=== PATIENT | female | born 1965 | race Caucasian/White ===

== ENCOUNTER 2020-12-11 10:24 | Outpatient (REF) | payer OTHER, SELFPAY ==
[2020-12-11 10:54] LABS: MANUAL DIFF FLAG NO
[2020-12-11 10:56] LABS: Basophils Absolute Auto 0.1 X10*3/uL (0.0-0.2); Basophils Percent Auto 0.5 % (0-2); Eosinophils Absolute Auto 0.1 X10*3/uL (0.0-0.4); Eosinophils Percent Auto 1.5 % (0-4); Hematocrit 45.6 % (37-47); Hemoglobin 15.1 g/dl (12.0-16.0); Imm Gran Abs Auto 0.05 X10*3/uL (0.00-0.03); Imm Gran Pct Auto 0.5 % (0.0-0.4); Lymphocytes Absolute Auto 2.2 X10*3/uL (1.2-4.9); Lymphocytes Percent Auto 23.2 % (20-40); Mean Corpuscular HGB Conc 33.1 g/dl (31.0-35.0); Mean Corpuscular Hemoglobin 30.4 pg (27.0-33.0); Mean Corpuscular Volume 91.9 fL (80-98); Mean Platelet Volume 10.5 fL (9.4-12.3); Monocytes Absolute Auto 0.7 X10*3/uL (0.1-1.2); Monocytes Percent Auto 7.1 % (2-11); Neutrophils Absolute Auto 6.3 X10*3/uL (2.0-8.3); Neutrophils Percent Auto 67.2 % (45-73); Platelet Count 303 X10*3/uL (160-400); Red Blood Count 4.96 X10*6/uL (4.20-5.50); Red Cell Distribution Width 12.6 % (11.0-16.0); White Blood Count 9.4 X10*3/uL (4.8-10.8)
[2020-12-11 11:23] LABS: Estimated Average Glucose 111 mg/dL; Hemoglobin A1c % 5.5 %
[2020-12-11 12:13] LABS: Alanine Aminotransferase 25 U/L (0-31); Albumin Level 4.5 g/dL (3.5-5.0); Alkaline Phosphatase 92 U/L (39-117); Anion Gap 16 (12-20); Bilirubin Total 0.3 mg/dL (0.0-1.0); Blood Urea Nitrogen 13 mg/dL (9-16); Calcium 9.3 mg/dL (8.4-10.2); Carbon Dioxide 26 mmol/L (22-29); Chloride 106 mmol/L (96-108); Cholesterol 263 mg/dL; Estimated Glomerular Filt Rate > 60; Glucose Random 110 mg/dL (60-115); HDL Cholesterol 55 mg/dL; LDL Cholesterol Calculated 191 mg/dl; Potassium 4.9 mmol/l (3.3-5.1); Sodium 143 mmol/L (135-145); Total Protein 6.7 g/dL (6.5-8.0); Triglycerides 87 mg/dL
[2020-12-11 12:14] LABS: Folate 5.5 ng/mL (> or = 4.0); Vitamin B12 447 pg/mL (200-900)
[2020-12-11 12:16] LABS: Free T4 (Free Thyroxine) 0.82 ng/dL (0.71-1.85); Thyroid Stimulating Hormone 2.24 uIU/mL (0.32-4.0); Vitamin D 25-OH Total 47.3 ng/mL (>30)
[2020-12-11 12:25] LABS: Aspartate Amino Transferase 17 U/L (5-31)
== END 2020-12-11 10:25 | disposition home or self-care (01) ==
LOC: HO.LAB 10:24
PROVIDERS: PCP Internal Medicine; Visit Provider Internal Medicine
DX: E78.00 Pure hypercholesterolemia, unspecified (principal); R73.02 Impaired glucose tolerance (oral); K21.9 Gastro-esophageal reflux disease without esophagitis; F41.9 Anxiety disorder, unspecified; F32.9 Major depressive disorder, single episode, unspecified
CPT/HCPCS: 36415; 80053; 80061; 82306; 82607; 82746; 83036; 84439; 84443; 85025

== ENCOUNTER 2021-01-06 14:45 | Inpatient (IN) | payer OTHER, SELFPAY ==
--- NOTE | ~2021-01-06 | CT_ITS ---
EXAMINATION: CT ABDOMEN AND PELVIS WITH CONTRAST CLINICAL INFORMATION: Left lower quadrant pain and tenderness COMPARISON: None TECHNIQUE: Multidetector volumetric images were obtained from the superior aspect of the liver through the pubic symphysis following administration 85 mL of Omnipaque 350 intravenous contrast. Sagittal and coronal reformatted images were obtained on the technologist's workstation. Oral contrast: No This CT examination was performed using dose optimization techniques as appropriate, variously including the following: *Automated exposure control *Adjustment of mA and/or kV according to patient size (this includes techniques or standardized protocols for targeted exams where dose is matched to indication/reason for exam; i.e. extremities or head) *Use of iterative reconstruction technique DLP: 663 mGy-cm FINDINGS: LUNG BASES: The visualized lung bases are unremarkable. LIVER, GALLBLADDER, AND BILIARY TREE: The liver is normal in size, shape, and attenuation. No focal hepatic lesion or biliary ductal dilatation is present. The gallbladder is unremarkable with no evidence of radiopaque gallstones, gallbladder wall thickening, or obvious pericholecystic inflammatory changes. PANCREAS: Unremarkable. SPLEEN: Unremarkable. ADRENAL GLANDS: Unremarkable. KIDNEYS AND URETERS: The kidneys are normal in size, shape, and attenuation. No hydronephrosis, hydroureter, or calculi seen. No perinephric stranding. BLADDER: Unremarkable. A tiny reji of air is noted within the bladder. GASTROINTESTINAL TRACT: Diverticular changes are present predominantly in the sigmoid. At the junction of the descending colon and sigmoid there is colonic thickening and pericolonic inflammatory change consistent with acute diverticulitis. No extraluminal air or pericolonic drainable fluid collections are seen. One tiny fluid collection is seen which could even be a diverticulum measuring 8 mm in size (series 3 image 62). There is some minimally prominent loops of small bowel in the lower pelvis with some tethering seen. This is an area of a surgical clip (series 7 image 46) and could be related to some scarring. No gross evidence of bowel obstruction is seen. ABDOMINAL WALL: No significant hernia is appreciated. LYMPH NODES: No retroperitoneal lymphadenopathy seen. Some small para-aortic lymph nodes are present. VASCULAR: Unremarkable. PELVIC VISCERA: An anteverted uterus is present. A small amount of free fluid is present in the cul-de-sac. OSSEOUS STRUCTURES: Unremarkable. CT/CT abdomen pelvis w con IMPRESSION: 1. Acute uncomplicated diverticulitis at the junction of the descending and sigmoid colon-see description above. 2. Mildly prominent loops of small bowel without gross obstruction and some mild tethering may be secondary to prior surgery. 3. Tiny reji of air in the bladder may be due to catheterization as there is no evidence of a enteric fistula to the bladder
[2021-01-06 18:09] VITALS: BP 135/100; PULSE 105; RESP 18; TEMP 36.7; O2SAT 97; BMI 31.2
[2021-01-06 18:49] VITALS: BP 133/85; PULSE 87; RESP 20; TEMP 36.9; O2SAT 97
--- NOTE | 2021-01-06 18:55 | ED_ITS ---
HPI - Abdominal Pain General Chief Complaint: Abdominal Pain Stated Complaint: ABD PAIN Time Seen by Provider: 01/06/21 18:40 Source: patient Mode of arrival: ambulatory History of Present Illness HPI narrative: 55-year-old female with a past medical history of GERD, hyperlipidemia, impaired glucose tolerance, insomnia, obesity, presenting to the ED complaining of left lower quadrant abdominal pain radiating to mid lower abdomen since last night. Admits to associated nausea and decreased p.o. intake. Denies fever, chills, vomiting, diarrhea, constipation, dysuria/hematuria, vaginal bleeding/discharge, flank pain MD elicited complaint: abdominal pain Related Data Home Medications Medication Instructions Recorded Confirmed biotin 1 mg capsule 1 mg PO DAILY 12/11/20 12/11/20 carisoprodol 350 mg tablet 350 mg PO BEDTIME PRN tab 12/11/20 12/11/20 cholecalciferol (vitamin D3) 25 25 mcg PO DAILY 12/11/20 12/11/20 mcg (1,000 unit) capsule gabapentin 300 mg capsule 300 mg PO TID PRN cap 12/11/20 12/11/20 magnesium 250 mg tablet 250 mg PO DAILY 12/11/20 12/11/20 omega-3 fatty acids 1,000 mg 1,000 mg PO DAILY 12/11/20 12/11/20 capsule simvastatin 10 mg tablet 10 mg PO QPM 12/11/20 12/11/20 Previous Rx's Medication Instructions Recorded paroxetine HCl 20 mg tablet 20 mg PO QAM #30 tab 10/18/20 clonazepam 0.5 mg tablet 0.5 mg PO BID PRN 30 Days #30 tab 12/11/20 varenicline 0.5 mg (11)-1 mg (42) See Rx Instructions PO PER PKG DIR 12/11/20 tablets in a dose pack #53 ea varenicline 1 mg tablet 1 mg PO BID #56 tab 12/11/20 Allergies Allergy/AdvReac Type Severity Reaction Status Date / Time amoxicillin [Amoxicillin] Allergy Mild NAUSEA Verified 11/28/20 08:39 azithromycin [From Zithromax] Allergy Mild ITCHING Verified 11/28/20 08:39 erythromycin base Allergy Mild NAUSEA Verified 11/28/20 08:39 [Erythromycin Base] Sulfa (Sulfonamide Allergy Mild NAUSEA Verified 11/28/20 08:39 Antibiotics) Erythromycin Allergy Unknown NAUSEA Verified 11/28/20 08:39 metoclopramide Allergy Unknown swelling Verified 02/23/19 00:00 hands/feet trazodone Allergy Unknown vivid Verified 11/28/20 08:39 dreams ENVIRONMENTAL Allergy Unknown NASAL Uncoded 08/02/20 15:49 CONGESTION, WATERY EYES Review of Systems Review of Systems Constitutional: No Fever, No Chills Cardiovascular: No Chest Pain, No SOB Respiratory: No Cough Gastrointestinal: +Nausea, No Vomiting, No Diarrhea, No Constipation, +Abdominal pain Genitourinary: No irregular bleeding, No Dysuria, No Urinary Frequency, No Hematuria, No Flank Pain, No Urinary Flow Changes, No Hesitancy Musculoskeletal: No joint pain, No Myalgias, No Joint Swelling Skin: No Skin Lesions, No rash Yes all other systems are reviewed and are negative Physical Exam Vital Signs: Vital Signs: Last Vital Signs Temp 98.1 F 01/06/21 20:11 Pulse 81 01/06/21 20:11 Resp 18 01/06/21 20:11 BP 116/81 01/06/21 20:11 Pulse Ox 97 01/06/21 20:11 Body Mass Index 31.2 Const: General: cooperative, healthy appearing and no acute distress Orientation/consciousness: patient oriented x3 Limitations: no limitations HENMT: Head: Yes normal to inspection Ears: hearing grossly normal bilaterally General nose exam: Normal external nose present Face and sinus: Yes normal facial exam Eyes: General: appearance normal, both eyes and all related structures EOM: EOMs intact bilaterally Neck: Neck: Yes normal visual inspection Resp: Effort & Inspection: normal respiratory effort Cardio: Rate: regular rate GI: Inspection: Yes normal to inspection Palpation (GI): Soft to palpation, Tenderness to palpation present (GI) (lower abdomen) in the LLQ, no guarding and not rigid : General: Yes no CVA tenderness Back/Spine/Pelvis: Back: no CVA tenderness Skin: Rashes: no rashes Wounds: no wounds Neuro: General: patient oriented x3 Gait exam (Neuro): Normal gait present Extrem: General: Yes normal to inspection Course Course Course Narrative: -leukocytosis of 13, labs otherwise unremarkable -2100--ED care transferred to C[facility] hebert pending CTAP and re-evaluation MDM - Abdominal Pain MDM Narrative Medical decision making narrative: 55-year-old female with a past medical history of GERD, hyperlipidemia, impaired glucose tolerance, insomnia, obesity, presenting to the ED complaining of left lower quadrant abdominal pain radiating to mid lower abdomen since last night. On exam VSS, NAD/well-appearing, abdomen soft with left lower quadrant/lower abdominal tenderness to palpation, no CVAT. No rebound or guarding. Concern for diverticulitis/UTI vs colitis. Lower concern for renal stone/appendicitis/pyelonephritis/ovarian pathology Plan: Labs, UA, CT AP, IVF, symptomatic treatments, reassess Medical Records Attestation: I reviewed the patient's medical records. Lab Data Attestation: I reviewed the patient's lab results. Result diagrams: 01/06/21 19:02 01/06/21 19:02 Labs: Lab Results 01/06/21 01/06/21 01/06/21 Range/Units 19:02 19:02 19:02 WBC 13.0 H (4.8-10.8) X10*3/uL RBC 4.43 (4.20-5.50) X10*6/uL Hgb 13.7 (12.0-16.0) g/dl Hct 40.4 (37-47) % MCV 91.2 (80-98) fL MCH 30.9 (27.0-33.0) pg MCHC 33.9 (31.0-35.0) g/dl RDW 12.5 (11.0-16.0) % Plt Count 272 (160-400) X10*3/uL MPV 10.9 (9.4-12.3) fL Immature Gran % (Auto) 0.5 H (0.0-0.4) % Neut % (Auto) 69.0 (45-73) % Lymph % (Auto) 20.3 (20-40) % [place] % (Auto) 8.5 (2-11) % Eos % (Auto) 1.4 (0-4) % Baso % (Auto) 0.3 (0-2) % Lymph # (Auto) 2.6 (1.2-4.9) X10*3/uL [place] # (Auto) 1.1 (0.1-1.2) X10*3/uL Eos # (Auto) 0.2 (0.0-0.4) X10*3/uL Baso # (Auto) 0.0 (0.0-0.2) X10*3/uL Abs Immat Gran (auto) 0.06 H (0.00-0.03) X10*3/uL Absolute Neuts (auto) 9.0 H (2.0-8.3) X10*3/uL Absolute Nucleated RBC 0.000 (0.0-0.012) X10*3/uL Nucleated RBC % (auto) 0.0 (0.0-0.2) /100WBC Hold Blue Top SEE NOTE Sodium 137 (135-145) mmol/L Potassium 4.5 (3.3-5.1) mmol/L Chloride 100 (96-108) mmol/L Carbon Dioxide 24 (22-29) mmol/L Anion Gap 18 (12-20) BUN 10 (9-16) mg/dL Creatinine 0.75 (0.5-1.4) mg/dL Estim Creat Clear Calc 76.2 Estimated GFR > 60 Random Glucose 95 (60-115) mg/dL Calcium 8.9 (8.4-10.2) mg/dL Magnesium 2.3 (1.6-2.6) mg/dL Total Bilirubin 0.7 (0.0-1.0) mg/dL Direct Bilirubin 0.2 (0.0-0.5) mg/dL AST 17 (5-31) U/L ALT 17 (0-31) U/L Alkaline Phosphatase 105 (39-117) U/L Total Protein 6.6 (6.5-8.0) g/dL Albumin 4.2 (3.5-5.0) g/dL Lipase 16 (8-78) U/L Discharge Plan Discharge Prescriptions: No Action paroxetine HCl 20 mg tablet 20 mg PO QAM Qty: 30 RF: 2 carisoprodol 350 mg tablet 350 mg PO BEDTIME PRNRF: 0 simvastatin 10 mg tablet 10 mg PO QPM RF: 0 gabapentin 300 mg capsule 300 mg PO TID PRNRF: 0 magnesium 250 mg tablet 250 mg PO DAILY RF: 0 biotin 1 mg capsule 1 mg PO DAILY RF: 0 omega-3 fatty acids [Fish Oil Concentrate] 1,000 mg capsule 1,000 mg PO DAILY RF: 0 cholecalciferol (vitamin D3) 25 mcg (1,000 unit) capsule 25 mcg PO DAILY RF: 0 Chantix Starting Month Box 0.5 mg (11)- 1 mg (42) tablets,dose pack See Rx Instructions PO PER PKG DIR Qty: 53 RF: 0 Chantix Continuing Month Box 1 mg tablet 1 mg PO BID Qty: 56 RF: 1 clonazepam 0.5 mg tablet 0.5 mg PO BID PRN (Reason: anxiety) 30 Days Qty: 30 RF: 0 PMFSH Past Medical History Attestation statement: The following information was validated with the patient. Medical History (Updated 12/11/20 @ 09:47 by Roney Merino MD) Bilateral carpal tunnel syndrome GERD (gastroesophageal reflux disease) Hypercholesterolemia Impaired glucose tolerance Insomnia Obesity (BMI 30-39.9) Surgical History (Updated 12/11/20 @ 09:45 by Roney Merino MD) H/O left knee surgery History of arthroscopy of left knee History of carpal tunnel release History of D&C History of fusion of cervical spine History of right knee surgery History of rotator cuff surgery History of shoulder surgery Family History Family History (Updated 11/28/20 @ 08:42 by Michelle Foster [facility]) Father Myocardial infarction Skin cancer Mother Myocardial infarction Maternal Grandmother Bone cancer Paternal Aunt Skin cancer Brother Myocardial infarction Sister Myocardial infarction Social History Social History (Updated 12/11/20 @ 09:46 by Roney Merino MD) Alcohol intake: current Alcohol intake frequency: 3 or more drinks per day Alcohol type: beer Smoking Status: Current every day smoker Packs Per Day: 0.5 Smoked in Last 30 Days: Yes Advance Directives: No Advance Directives Information Provided: Yes
[2021-01-06] MEDS: 0.9 % Sodium Chloride 1,000 ML 999 ML IVCONT (19:06)
[2021-01-06] MEDS: Ketorolac Tromethamine 15 MG/ML VIAL IVPUSH (19:07)
[2021-01-06 19:08] LABS: MANUAL DIFF FLAG NO
[2021-01-06 19:09] LABS: Basophils Percent Auto 0.3 % (0-2); Eosinophils Absolute Auto 0.2 X10*3/uL (0.0-0.4); Eosinophils Percent Auto 1.4 % (0-4); Hematocrit 40.4 % (37-47); Hemoglobin 13.7 g/dl (12.0-16.0); Imm Gran Abs Auto 0.06 X10*3/uL (0.00-0.03); Imm Gran Pct Auto 0.5 % (0.0-0.4); Lymphocytes Absolute Auto 2.6 X10*3/uL (1.2-4.9); Lymphocytes Percent Auto 20.3 % (20-40); Mean Corpuscular HGB Conc 33.9 g/dl (31.0-35.0); Mean Corpuscular Hemoglobin 30.9 pg (27.0-33.0); Mean Corpuscular Volume 91.2 fL (80-98); Mean Platelet Volume 10.9 fL (9.4-12.3); Monocytes Absolute Auto 1.1 X10*3/uL (0.1-1.2); Monocytes Percent Auto 8.5 % (2-11); Platelet Count 272 X10*3/uL (160-400); Red Blood Count 4.43 X10*6/uL (4.20-5.50); Red Cell Distribution Width 12.5 % (11.0-16.0)
[2021-01-06 19:41] LABS: Alanine Aminotransferase 17 U/L (0-31); Albumin Level 4.2 g/dL (3.5-5.0); Alkaline Phosphatase 105 U/L (39-117); Anion Gap 18 (12-20); Aspartate Amino Transferase 17 U/L (5-31); Bilirubin Direct 0.2 mg/dL (0.0-0.5); Bilirubin Total 0.7 mg/dL (0.0-1.0); Blood Urea Nitrogen 10 mg/dL (9-16); Calcium 8.9 mg/dL (8.4-10.2); Carbon Dioxide 24 mmol/L (22-29); Chloride 100 mmol/L (96-108); Creatinine Clr Calc Pharmacy 76.2; Estimated Glomerular Filt Rate > 60; Glucose Random 95 mg/dL (60-115); Lipase 16 U/L (8-78); Magnesium 2.3 mg/dL (1.6-2.6); Potassium 4.5 mmol/L (3.3-5.1); Sodium 137 mmol/L (135-145); Total Protein 6.6 g/dL (6.5-8.0)
[2021-01-06 20:11] VITALS: BP 116/81; PULSE 81; RESP 18; TEMP 36.7; O2SAT 97
[2021-01-06] MEDS: iohexoL 350 MG/ML 100 ML INFUS..BTL IV (21:01)
[2021-01-06 21:43] LABS: Glucose Urine UA NEG (NEG); Leukocyte Esterase Urine NEG (NEG); Nitrite Urine NEG (NEG); Specific Gravity - Urine <= 1.005 (1.005-1.025); Urine Blood NEG (NEG); Urine Ketones NEG (NEG); Urine Protein NEG (NEG-TRACE)
[2021-01-06 21:48] LABS: Appearance Urine CLEAR; Color Urine YELLOW
--- NOTE | 2021-01-06 22:54 | P.HPHOSP_ITS ---
History of Present Illness Date of Service: 01/06/21 Chief Complaint: Abdominal pain 56-year-old female with a past medical history of hypertension hyperlipidemia, anxiety, depression presented to the hospital with a chief complaint of abdominal pain. Mentions that her abdominal pain is located on the left lower quadrant associated with nausea. Denies any vomiting or diarrhea. Denies any fever chills cough. Denies any chest pain palpitations. Review of all other systems is negative except mentioned above ER course: Per ER team patient noted to have left lower quadrant tenderness no guarding no rigidity. CT scan showed acute uncomplicated diverticulitis. Admitted to the hospital for further management. [facility] Medical History (Updated 01/07/21 @ 00:05 by Katiana Roth NP) Bilateral carpal tunnel syndrome GERD (gastroesophageal reflux disease) Hypercholesterolemia Impaired glucose tolerance Insomnia Obesity (BMI 30-39.9) Family History (Updated 11/28/20 @ 08:42 by Michelle Foster [facility]) Father Myocardial infarction Skin cancer Mother Myocardial infarction Maternal Grandmother Bone cancer Paternal Aunt Skin cancer Brother Myocardial infarction Sister Myocardial infarction Surgical History (Updated 12/11/20 @ 09:45 by Roney Merino MD) H/O left knee surgery History of arthroscopy of left knee History of carpal tunnel release History of D&C History of fusion of cervical spine History of right knee surgery History of rotator cuff surgery History of shoulder surgery Social History (Updated 12/11/20 @ 09:46 by Roney Merino MD) Alcohol intake: current Alcohol intake frequency: 3 or more drinks per day Alcohol type: beer Smoking Status: Current every day smoker Packs Per Day: 0.5 Smoked in Last 30 Days: Yes Advance Directives: No Advance Directives Information Provided: Yes Meds Allergies Allergy/AdvReac Type Severity Reaction Status Date / Time amoxicillin [Amoxicillin] Allergy Mild NAUSEA Verified 11/28/20 08:39 azithromycin [From Zithromax] Allergy Mild ITCHING Verified 11/28/20 08:39 erythromycin base Allergy Mild NAUSEA Verified 11/28/20 08:39 [Erythromycin Base] Sulfa (Sulfonamide Allergy Mild NAUSEA Verified 11/28/20 08:39 Antibiotics) Erythromycin Allergy Unknown NAUSEA Verified 11/28/20 08:39 metoclopramide Allergy Unknown swelling Verified 02/23/19 00:00 hands/feet trazodone Allergy Unknown vivid Verified 11/28/20 08:39 dreams ENVIRONMENTAL Allergy Unknown NASAL Uncoded 08/02/20 15:49 CONGESTION, WATERY EYES Active Medications: Current Medications Generic Name Dose Route Start Last Admin Trade Name Joyce PRN Reason Stop Dose Admin Acetaminophen 650 mg 01/06/21 22:49 Acetaminophen 325 Mg Tablet PO Q6H PRN Pain, Mild (Pain Scale 1-3) Ceftriaxone Sodium 1 gm/ 50 mls @ 100 mls/hr 01/06/21 22:31 Sodium Chloride IV 01/06/21 23:00 ONCE ONE Sodium Chloride 1,000 mls @ 999 mls/hr 01/06/21 22:45 Ns IVCONT 01/06/21 23:45 .Q1H1M MIAH Dextrose/Sodium Chloride 1,000 mls @ 100 mls/hr 01/06/21 23:00 D51/2ns IVCONT .Q10H MIAH Ceftriaxone Sodium 1 gm/ 50 mls @ 100 mls/hr 01/06/21 23:00 Sodium Chloride IV Q24H MIAH Metronidazole 500 mg in 100 mls @ 100 mls/hr 01/06/21 23:00 Flagyl IV Q8H MIAH Morphine Sulfate 1 mg 01/06/21 22:49 Morphine Sulfate 4 Mg/Ml Cartridge IVPUSH Q6H PRN Pain, Severe (Pain Scale 7-10) Pharmacy Consult 1 each 01/06/21 22:52 Consult Rx Perform Med Rec MISCELLANE ONCE PRN Consult order Sodium Chloride 3 ml 01/07/21 00:00 0.9 % Sodium Chloride Flush [facility] Home Medications Medication Instructions Recorded Confirmed Last Taken Type biotin 1 mg capsule 1 mg PO DAILY 12/11/20 01/06/21 01/06/21 08:00 History carisoprodol 350 mg tablet 350 mg PO NEEDED PRN tab 12/11/20 01/06/21 12/30/20 History cholecalciferol (vitamin D3) 25 25 mcg PO DAILY 12/11/20 01/06/21 01/06/21 08:00 History mcg (1,000 unit) capsule gabapentin 300 mg capsule 300 mg PO BID PRN cap 12/11/20 01/06/21 01/06/21 13:00 History magnesium 250 mg tablet 250 mg PO DAILY 12/11/20 01/06/21 01/06/21 08:00 History omega-3 fatty acids 1,000 mg 1,000 mg PO DAILY 12/11/20 01/06/21 01/06/21 08:00 History capsule simvastatin 10 mg tablet 10 mg PO QPM 12/11/20 01/06/21 01/05/21 20:00 History clonazepam 0.5 mg PO NEEDED PRN 01/06/21 01/06/21 01/03/21 21:00 History Physical Exam Vital Signs and Narrative: Vital Signs: Last Vital Signs Temp 98.1 F 01/06/21 20:11 Pulse 81 01/06/21 20:11 Resp 18 01/06/21 20:11 BP 116/81 01/06/21 20:11 Pulse Ox 97 01/06/21 20:11 Body Mass Index 31.2 Gen: Appears be in no acute distress HEENT: NCAT, Moist mucosa. Pulmonary: Vesicular breath sounds, fair air entry CVS: Normal S1-S2 Abdomen: BS+, Soft, tender in the left lower quadrant, no guarding no rigidity Extremities: Warm well perfused Neuro: Alert and awake. Results Labs CBC and Chem 7: 01/06/21 19:02 01/06/21 19:02 Labs: Laboratory Results - last 24 hr 01/06/21 01/06/21 01/06/21 19:02 19:02 19:02 MCV 91.2 MCH 30.9 MCHC 33.9 RDW 12.5 Plt Count 272 MPV 10.9 Immature Gran % (Auto) 0.5 H Neut % (Auto) 69.0 Lymph % (Auto) 20.3 [place] % (Auto) 8.5 Eos % (Auto) 1.4 Baso % (Auto) 0.3 Lymph # (Auto) 2.6 [place] # (Auto) 1.1 Eos # (Auto) 0.2 Baso # (Auto) 0.0 Abs Immat Gran (auto) 0.06 H Absolute Neuts (auto) 9.0 H Absolute Nucleated RBC 0.000 Nucleated RBC % (auto) 0.0 Hold Blue Top SEE NOTE Anion Gap 18 Estim Creat Clear Calc 76.2 Estimated GFR > 60 Random Glucose 95 Calcium 8.9 Magnesium 2.3 Total Bilirubin 0.7 Direct Bilirubin 0.2 AST 17 ALT 17 Alkaline Phosphatase 105 Total Protein 6.6 Albumin 4.2 Lipase 16 Urine Color Urine Appearance Urine pH Ur Specific [place] Urine Protein Urine Glucose (UA) Urine Ketones Urine Blood Urine Nitrite Ur Leukocyte Esterase 01/06/21 21:16 MCV MCH MCHC RDW Plt Count MPV Immature Gran % (Auto) Neut % (Auto) Lymph % (Auto) [place] % (Auto) Eos % (Auto) Baso % (Auto) Lymph # (Auto) [place] # (Auto) Eos # (Auto) Baso # (Auto) Abs Immat Gran (auto) Absolute Neuts (auto) Absolute Nucleated RBC Nucleated RBC % (auto) Hold Blue Top Anion Gap Estim Creat Clear Calc Estimated GFR Random Glucose Calcium Magnesium Total Bilirubin Direct Bilirubin AST ALT Alkaline Phosphatase Total Protein Albumin Lipase Urine Color YELLOW Urine Appearance CLEAR Urine pH 6.0 Ur Specific [place] <= 1.005 Urine Protein NEG Urine Glucose (UA) NEG Urine Ketones NEG Urine Blood NEG Urine Nitrite NEG Ur Leukocyte Esterase NEG Imaging Radiologist's Impressions: Impressions Abdomen/Pelvis CT 01/06/21 18:49 IMPRESSION: 1. Acute uncomplicated diverticulitis at the junction of the descending and sigmoid colon-see description above. 2. Mildly prominent loops of small bowel without gross obstruction and some mild tethering may be secondary to prior surgery. 3. Tiny reji of air in the bladder may be due to catheterization as there is no evidence of a enteric fistula to the bladder Assessment and Plan (1) Diverticulitis: Status: Acute 55-year-old female with a past medical history of hypertension, hyperlipidemia, anxiety, depression, obesity, tobacco dependence presented to the hospital with a chief complaint of abdominal pain. Noted to have acute diverticulitis. Acute diverticulitis: No guarding no rigidity. CT scan shows uncomplicated diverticulitis. Continue ceftriaxone and Flagyl.-patient tolerated this antibiotics in the ER Follow-up blood cultures. NPO IV fluids If not clinically improving will have the primary team to consider General surgery consult. Patient would benefit outpatient colonoscopy in 6-8 weeks upon discharge. Hypertension/hyperlipidemia: Continue home medications. ?DM: sent hba1c DVT prophylaxis: SCD boots Code status: Full code
[2021-01-06 23:06] VITALS: RESP 18
[2021-01-06] MEDS: Morphine Sulfate 4 MG/ML CARTRIDGE IVPUSH (23:06)
[2021-01-06] MEDS: ondansetron HCL 4 MG/2 ML VIAL IVPUSH (23:08)
[2021-01-06] MEDS: metroNIDAZOLE 500 MG TABLET PO (23:09)
[2021-01-06] MEDS: cefTRIAXone sodium 1 GM in 0.9 % Sodium Chloride 50 ML IV (23:09)
--- NOTE | 2021-01-06 23:20 | PC.NURSE ---
Report taken from Ama, андрей RN resuming care.
[2021-01-06 23:23] LABS: Lactic Acid 0.8 mmol/L (0.5-2.0)
[2021-01-06 23:29] LABS: COVID-19 Test Negative (Negative)
[2021-01-06] MEDS: Dextrose 5 % and 0.45 % NaCl 1,000 ML 100 ML IVCONT (23:43)
--- NOTE | 2021-01-06 23:53 | PC.NURSE ---
D5 1/2 NS hung per JAN. Med Rec completed at bedside with pt. Pt report 7/10 pain at this time, reports pain increases with movement.
[2021-01-07] VITALS (10 sets, daily range): BP systolic 99–116; BP diastolic 59–81; PULSE 70–81; RESP 15–23; TEMP 36.6–36.9; O2SAT 94–97
[2021-01-07] MEDS: 0.9 % Sodium Chloride Flush 3 ML SYRINGE IVFLUSH ×2 (01:02→08:12)
[2021-01-07] MEDS: Acetaminophen 325 MG TABLET 650 MG PO ×2 (04:33→12:02)
--- NOTE | 2021-01-07 04:37 | PC.NURSE ---
Pt medicated with Tylenol per request for 7/10 pain to LLQ. VSS at this time. Call edmond within reach, continue to monitor.
[2021-01-07] MEDS: Morphine Sulfate 2 MG/ML CARTRIDGE 1 MG IVPUSH ×3 (06:22→21:59)
[2021-01-07] MEDS: metroNIDAZOLE/NS 500 MG/100 ML PIGGYBACK 100 MG IV ×2 (06:30→14:52)
--- NOTE | 2021-01-07 06:34 | PC.NURSE ---
Pt requesting PRN Morphine for 06/25 pain to Q. Pt medicated with Morphine and Flagyl per JAN. VSS at this time, pt resting in bed, call edmond within reach. Continue to monitor.
[2021-01-07 06:53] LABS: Basophils Percent Auto 0.3 % (0-2); Eosinophils Absolute Auto 0.2 X10*3/uL (0.0-0.4); Eosinophils Percent Auto 1.6 % (0-4); Hematocrit 36.9 % (37-47); Hemoglobin 12.4 g/dl (12.0-16.0); Imm Gran Abs Auto 0.04 X10*3/uL (0.00-0.03); Imm Gran Pct Auto 0.4 % (0.0-0.4); Lymphocytes Absolute Auto 1.3 X10*3/uL (1.2-4.9); Lymphocytes Percent Auto 13.1 % (20-40); MANUAL DIFF FLAG NO; Mean Corpuscular HGB Conc 33.6 g/dl (31.0-35.0); Mean Corpuscular Hemoglobin 30.8 pg (27.0-33.0); Mean Corpuscular Volume 91.8 fL (80-98); Mean Platelet Volume 11.1 fL (9.4-12.3); Monocytes Percent Auto 9.4 % (2-11); Neutrophils Absolute Auto 7.7 X10*3/uL (2.0-8.3); Neutrophils Percent Auto 75.2 % (45-73); Platelet Count 236 X10*3/uL (160-400); Red Blood Count 4.02 X10*6/uL (4.20-5.50); Red Cell Distribution Width 12.6 % (11.0-16.0); White Blood Count 10.2 X10*3/uL (4.8-10.8)
[2021-01-07 07:40] LABS: Anion Gap 11 (12-20); Blood Urea Nitrogen 8 mg/dL (9-16); Calcium 8.4 mg/dL (8.4-10.2); Carbon Dioxide 27 mmol/L (22-29); Chloride 107 mmol/L (96-108); Creatinine Clr Calc Pharmacy 76.2; Estimated Glomerular Filt Rate > 60; Glucose Random 114 mg/dL (60-115); Potassium 5.3 mmol/L (3.3-5.1); Sodium 140 mmol/L (135-145)
[2021-01-07] MEDS: PARoxetine HCL 20 MG TABLET PO (08:20)
[2021-01-07 09:34] LABS: Estimated Average Glucose 108 mg/dL; Hemoglobin A1c % 5.4 %
[2021-01-07] MEDS: Dextrose 5 % and 0.45 % NaCl 1,000 ML 100 ML IVCONT (12:02)
--- NOTE | 2021-01-07 12:08 | MHC.CM.PN ---
Met with patient in regards to discharge planning. Patient lives with her , normally ambulates independently but has been using a cane due to abd pain, and had no services prior to coming to the ER. No services anticipated to be needed because patient is not homebound. Patient still works and drives. PCP verified. HCP completed, signed and witnessed. Original given to patient. Copy placed in chart. Patient's will transport her home when medically stable. Continue to monitor for d/c needs.
--- NOTE | 2021-01-07 13:35 | P.PNIM_ITS ---
Subjective Subjective Date of Service: 01/07/21 Interval History: the patient was seen and evaluated this morning Laying in bed, complaining of LLQ pain and tendernss Denies any fever, chills or shortness of breath No reported other overnight events. Systemic review: No fever, chills or weakness No chest pain, palpitation No shortness of breath or coughing LLQ abdominal pain, no nausea or vomiting No urinary symptoms No any rash or wounds Physical Exam Vital Signs: Vital Signs: Last Vital Signs Temp 97.9 F 01/07/21 07:57 Pulse 78 01/07/21 12:29 Resp 18 01/07/21 12:29 BP 100/59 L 01/07/21 12:29 Pulse Ox 97 01/07/21 12:29 Body Mass Index 31.2 Const: Other: Constitutional : Alert, oriented, not in distress Neck : Normal inspection, Supple Cardiovascular : RRR, S1 S2, no lower extremity edema Respiratory : Good bilateral air entry, no crackles, wheezes or rhonchi Gastrointestinal: soft, lax, Normal bowel sounds, LLQ tederness Skin : Warm/Dry, No rash Neurological : Alert & oriented x3, No focal deficit Objective Data Current Medications Generic Name Dose Route Start Last Admin Trade Name Freq PRN Reason Stop Dose Admin Acetaminophen 650 mg 01/06/21 22:49 01/07/21 12:02 Acetaminophen 325 Mg Tablet PO 650 mg Q6H PRN Administration Pain, Mild (Pain Scale 1-3) Carisoprodol 350 mg 01/07/21 01:37 Carisoprodol 350 Mg Tablet PO Q8H PRN Back Pain Clonazepam 0.5 mg 01/07/21 01:37 Clonazepam 0.5 Mg Tablet PO BID PRN anxiety Gabapentin 300 mg 01/07/21 01:37 Gabapentin 300 Mg Capsule PO BID PRN Anxiety Dextrose/Sodium Chloride 1,000 mls @ 100 mls/hr 01/06/21 23:00 01/07/21 12:02 D51/2ns IVCONT 100 mls/hr .Q10H MIAH Administration Ceftriaxone Sodium 1 gm/ 50 mls @ 100 mls/hr 01/07/21 22:00 Sodium Chloride IV Q24H MIAH Metronidazole 500 mg in 100 mls @ 100 mls/hr 01/07/21 07:00 01/07/21 08:19 Flagyl IV Infused Q8H MIAH Infusion Morphine Sulfate 1 mg 01/06/21 22:54 01/07/21 12:32 Morphine Sulfate 2 Mg/Ml Cartridge IVPUSH 1 mg Q6H PRN Administration Pain, Severe (Pain Scale 7-10) Paroxetine HCl 20 mg 01/07/21 09:00 01/07/21 08:20 Paroxetine Hcl 20 Mg Tablet PO 20 mg DAILY MIAH Administration Pharmacy Consult 1 each 01/06/21 22:52 Consult Rx Perform Med Rec MISCELLANE ONCE PRN Consult order Sodium Chloride 3 ml 01/07/21 00:00 01/07/21 08:12 0.9 % Sodium Chloride Flush 3 Ml Syringe IVFLUSH 3 ml QSHIFT MIAH Administration Vitamin D 25 mcg 01/07/21 09:00 01/07/21 08:20 Cholecalciferol (Vitamin D3) 25 Mcg Tablet PO Not Given DAILY [facility] Labs CBC & Chem 7: 01/07/21 06:09 01/07/21 06:09 Assessment and Plan (1) Diverticulitis: Status: Acute Assessment and Plan: 55-year-old female with a past medical history of hypertension, hyperlipidemia, anxiety, depression, obesity, tobacco dependence presented to the hospital with a chief complaint of abdominal pain. Noted to have acute diverticulitis. Acute diverticulitis: No septic, No guarding no rigidity. CT scan shows uncomplicated diverticulitis. Continue ceftriaxone and Flagyl pending blood cultures start clear liquids IV fluids Morphine PRN for pain Patient would benefit outpatient colonoscopy in 6-8 weeks upon discharge. Hypertension/hyperlipidemia Continue home medications. Hyperkalemia K 5.3 start IVF, repeat BMP DM hba1c 5.4 DVT prophylaxis SCDs
--- NOTE | 2021-01-07 14:49 | MHC.CLN ---
RE: CONSULT RECOMMEND TO ADVANCE DIET TOLERATED GOAL IS LOW RESIDUE/SOFT DIET FOLLOWING
[2021-01-07] MEDS: Gabapentin 300 MG CAPSULE PO (17:26)
--- NOTE | 2021-01-07 19:47 | PC.NURSE ---
pt resting in stretcher in nad c/o pain to lower abd area. Pt's IV to lac infiltrated and removed. IV replaced to left FA area w/o difficulty. site intact. Fluids on pump up and running. Pt medicated for pain. will continue to monitor pt.
--- NOTE | 2021-01-07 20:12 | PC.NURSE ---
Report given to Antonio, ICU. facility maintenance technician preparing pt for transport.
[2021-01-07] MEDS: cefTRIAXone sodium 1 GM in 0.9 % Sodium Chloride 50 ML IV (22:03)
[2021-01-08] VITALS (7 sets, daily range): BP systolic 106–140; BP diastolic 65–81; PULSE 65–80; RESP 13–20; TEMP 36–36.8; O2SAT 92–98; BMI 31.2
[2021-01-08] MEDS: metroNIDAZOLE/NS 500 MG/100 ML PIGGYBACK 100 MG IV ×4 (00:56→22:27)
[2021-01-08] MEDS: 0.9 % Sodium Chloride Flush 3 ML SYRINGE IVFLUSH ×3 (01:13→16:25)
[2021-01-08 06:04] LABS: Hematocrit 36.7 % (37-47); Hemoglobin 12.5 g/dl (12.0-16.0); Mean Corpuscular HGB Conc 34.1 g/dl (31.0-35.0); Mean Corpuscular Hemoglobin 30.8 pg (27.0-33.0); Mean Corpuscular Volume 90.4 fL (80-98); Mean Platelet Volume 11.1 fL (9.4-12.3); Platelet Count 239 X10*3/uL (160-400); Red Blood Count 4.06 X10*6/uL (4.20-5.50); Red Cell Distribution Width 12.3 % (11.0-16.0); White Blood Count 8.5 X10*3/uL (4.8-10.8)
[2021-01-08 06:42] LABS: Anion Gap 13 (12-20); Blood Urea Nitrogen 7 mg/dL (9-16); Calcium 8.2 mg/dL (8.4-10.2); Carbon Dioxide 23 mmol/L (22-29); Chloride 110 mmol/L (96-108); Estimated Glomerular Filt Rate > 60; Glucose Random 97 mg/dL (60-115); Potassium 4.1 mmol/L (3.3-5.1); Sodium 142 mmol/L (135-145)
[2021-01-08] MEDS: Cholecalciferol (Vitamin D3) 25 MCG TABLET PO (08:26)
[2021-01-08] MEDS: PARoxetine HCL 20 MG TABLET PO (08:26)
[2021-01-08] MEDS: Dextrose 5 % and 0.45 % NaCl 1,000 ML 100 ML IVCONT ×2 (08:41→22:27)
[2021-01-08] MEDS: Acetaminophen 325 MG TABLET 650 MG PO ×2 (08:42→18:33)
[2021-01-08] MEDS: Morphine Sulfate 2 MG/ML CARTRIDGE 1 MG IVPUSH (08:43)
--- NOTE | 2021-01-08 13:37 | HO.PM.IMPN ---
Subjective Subjective Date of Service: 01/08/21 Interval History: the patient was seen and evaluated this morning Laying in bed, complaining of LLQ pain and tendernss Denies any fever, chills or shortness of breath No reported other overnight events. Systemic review: No fever, chills or weakness No chest pain, palpitation No shortness of breath or coughing LLQ abdominal pain, no nausea or vomiting No urinary symptoms No any rash or wounds Physical Exam Vital Signs: Vital Signs: Last Vital Signs Temp 98.3 F 01/08/21 12:00 Pulse 68 01/08/21 12:00 Resp 18 01/08/21 12:00 BP 106/65 01/08/21 12:00 Pulse Ox 94 01/08/21 12:00 Body Mass Index 31.2 Const: Other: Constitutional : Alert, oriented, not in distress Neck : Normal inspection, Supple Cardiovascular : RRR, S1 S2, no lower extremity edema Respiratory : Good bilateral air entry, no crackles, wheezes or rhonchi Gastrointestinal: soft, lax, Normal bowel sounds, LLQ tederness Skin : Warm/Dry, No rash Neurological : Alert & oriented x3, No focal deficit Objective Data Current Medications Generic Name Dose Route Start Last Admin Trade Name Freq PRN Reason Stop Dose Admin Acetaminophen 650 mg 01/06/21 22:49 01/08/21 08:42 Acetaminophen 325 Mg Tablet PO 650 mg Q6H PRN Administration Pain, Mild (Pain Scale 1-3) Carisoprodol 350 mg 01/07/21 01:37 Carisoprodol 350 Mg Tablet PO Q8H PRN Back Pain Clonazepam 0.5 mg 01/07/21 01:37 Clonazepam 0.5 Mg Tablet PO BID PRN anxiety Gabapentin 300 mg 01/07/21 01:37 01/07/21 17:26 Gabapentin 300 Mg Capsule PO 300 mg BID PRN Administration Anxiety Dextrose/Sodium Chloride 1,000 mls @ 100 mls/hr 01/06/21 23:00 01/08/21 08:49 D51/2ns IVCONT 0 mls/hr .Q10H MIAH Infusion Ceftriaxone Sodium 1 gm/ 50 mls @ 100 mls/hr 01/07/21 22:00 01/08/21 00:51 Sodium Chloride IV Infused Q24H MIAH Infusion Metronidazole 500 mg in 100 mls @ 100 mls/hr 01/07/21 07:00 01/08/21 10:34 Flagyl IV Infused Q8H MIAH Infusion Morphine Sulfate 1 mg 01/06/21 22:54 01/08/21 08:43 Morphine Sulfate 2 Mg/Ml Cartridge IVPUSH 1 mg Q6H PRN Administration Pain, Severe (Pain Scale 7-10) Paroxetine HCl 20 mg 01/07/21 09:00 01/08/21 08:26 Paroxetine Hcl 20 Mg Tablet PO 20 mg DAILY MIAH Administration Pharmacy Consult 1 each 01/06/21 22:52 Consult Rx Perform Med Rec MISCELLANE ONCE PRN Consult order Sodium Chloride 3 ml 01/07/21 00:00 01/08/21 08:27 0.9 % Sodium Chloride Flush 3 Ml Syringe IVFLUSH 3 ml QSHIFT MIAH Administration Vitamin D 25 mcg 01/07/21 09:00 01/08/21 08:26 Cholecalciferol (Vitamin D3) 25 Mcg Tablet PO 25 mcg DAILY MIAH Administration Labs CBC & Chem 7: 01/08/21 05:36 01/08/21 05:36 Microbiology Microbiology Results: Microbiology 01/06/21 23:03 Blood - Venous Blood Culture - Preliminary No growth after 24 hours. 01/06/21 23:01 Blood - Venous Blood Culture - Preliminary No growth after 24 hours. Assessment and Plan (1) Diverticulitis: Status: Acute Assessment and Plan: 55-year-old female with a past medical history of hypertension, hyperlipidemia, anxiety, depression, obesity, tobacco dependence presented to the hospital with a chief complaint of abdominal pain. Noted to have acute diverticulitis. Acute diverticulitis: No septic, No guarding no rigidity. CT scan shows uncomplicated diverticulitis. Continue ceftriaxone and Flagyl pending blood cultures advance to bland IV fluids Morphine PRN for pain Patient would benefit outpatient colonoscopy in 6-[address] Post to follow Hypertension/hyperlipidemia Continue home medications. Hyperkalemia improved start IVF, repeat BMP DM hba1c 5.4 DVT prophylaxis SCDs
[2021-01-08] MEDS: Nystatin Oral Susp 500,000 UNIT/5 ML ORAL.SUSP 400000 UNIT PO (18:32)
[2021-01-08] MEDS: Gabapentin 300 MG CAPSULE PO (18:33)
[2021-01-08] MEDS: cefTRIAXone sodium 1 GM in 0.9 % Sodium Chloride 50 ML IV (21:42)
[2021-01-08] MEDS: clonazePAM 0.5 MG TABLET PO (22:48)
[2021-01-09 03:38] VITALS: BP 140/69; PULSE 78; RESP 19; TEMP 36.7; O2SAT 96
[2021-01-09] MEDS: metroNIDAZOLE/NS 500 MG/100 ML PIGGYBACK 100 MG IV (06:11)
[2021-01-09 06:47] LABS: Anion Gap 12 (12-20); Blood Urea Nitrogen 7 mg/dL (9-16); Calcium 8.5 mg/dL (8.4-10.2); Carbon Dioxide 25 mmol/L (22-29); Chloride 108 mmol/L (96-108); Creatinine Clr Calc Pharmacy 85.3; Estimated Glomerular Filt Rate > 60; Glucose Random 116 mg/dL (60-115); Potassium 4.3 mmol/L (3.3-5.1); Sodium 141 mmol/L (135-145)
[2021-01-09] MEDS: 0.9 % Sodium Chloride Flush 3 ML SYRINGE IVFLUSH (07:24)
[2021-01-09] MEDS: Nystatin Oral Susp 500,000 UNIT/5 ML ORAL.SUSP 400000 UNIT PO (07:48)
[2021-01-09] MEDS: Cholecalciferol (Vitamin D3) 25 MCG TABLET PO (07:48)
[2021-01-09] MEDS: PARoxetine HCL 20 MG TABLET PO (07:48)
[2021-01-09 07:55] VITALS: BP 113/70; PULSE 76; RESP 17; TEMP 36.6; O2SAT 94
--- NOTE | 2021-01-09 09:58 | PM.DS ---
DS: Providers Provider Date of Service: 01/09/21 Date of admission: 01/06/21 22:49 Primary care physician: Roney Merino MD DS: Diagnosis Discharge Diagnosis (1) Diverticulitis: Status: Acute (2) Obesity (BMI 30-39.9): Status: Acute DS: Medications Discharge Medications Home Medications: Home Medications Medication Instructions Recorded Confirmed biotin 1 mg capsule 1 mg PO DAILY 12/11/20 01/06/21 carisoprodol 350 mg tablet 350 mg PO NEEDED PRN tab 12/11/20 01/06/21 cholecalciferol (vitamin D3) 25 25 mcg PO DAILY 12/11/20 01/06/21 mcg (1,000 unit) capsule gabapentin 300 mg capsule 300 mg PO BID PRN cap 12/11/20 01/06/21 magnesium 250 mg tablet 250 mg PO DAILY 12/11/20 01/06/21 omega-3 fatty acids 1,000 mg 1,000 mg PO DAILY 12/11/20 01/06/21 capsule simvastatin 10 mg tablet 10 mg PO QPM 12/11/20 01/06/21 clonazepam 0.5 mg PO NEEDED PRN 01/06/21 01/06/21 Previous Rx's Medication Instructions Recorded paroxetine HCl 20 mg tablet 20 mg PO QAM #30 tab 10/18/20 cefuroxime axetil 500 mg PO Q12H #8 tab 01/09/21 metronidazole 500 mg PO Q8H #12 tab 01/09/21 nystatin 400,000 unit PO QID 7 Days #112 ml 01/09/21 DS: Summary Hospital Course Hospital Course: Admission note HPI 56-year-old female with a past medical history of hypertension hyperlipidemia, anxiety, depression presented to the hospital with a chief complaint of abdominal pain. Mentions that her abdominal pain is located on the left lower quadrant associated with nausea. Denies any vomiting or diarrhea. Denies any fever chills cough. Denies any chest pain palpitations. Review of all other systems is negative except mentioned above ER course: Per ER team patient noted to have left lower quadrant tenderness no guarding no rigidity. CT scan showed acute uncomplicated diverticulitis. Admitted to the hospital for further management. Hospital course The patient was admitted to the hospital and treated with IV fluid, IV ceftriaxone and Flagyl with good response over the course of hospital stay S the pain decreased significantly and her blood work returned back to normal. She was able to tolerate diet as advanced with no complains of nausea or vomiting. To be discharged home on Flagyl and Ceftin to finish total of 7 days. To follow-up with Dr. Post in office for further evaluation of this condition given family history of complicated diverticulitis resulting in surgeries before. Time Spent with Patient Time attestation: Total time spent providing and/or coordinating discharge services: Discharge coordination time: Greater than 30 minutes Physical Exam Vital Signs: Vital Signs: Last Vital Signs Temp 97.9 F 01/09/21 07:55 Pulse 76 01/09/21 07:55 Resp 17 01/09/21 07:55 BP 113/70 01/09/21 07:55 Pulse Ox 94 01/09/21 07:55 Body Mass Index 31.2 Const: Other: Constitutional : Alert, oriented, not in distress Neck : Normal inspection, Supple Cardiovascular : RRR, S1 S2, no lower extremity edema Respiratory : Good bilateral air entry, no crackles, wheezes or rhonchi Gastrointestinal: soft, lax, Normal bowel sounds, left lower quadrant mild tenderness with deep palpation Skin : Warm/Dry, No rash Neurological : Alert & oriented x3, No focal deficit DS: Data Data Completed and Pending Labs on day of discharge: Laboratory Results - last 24 hr 01/09/21 05:54 Sodium 141 Potassium 4.3 Chloride 108 Carbon Dioxide 25 Anion Gap 12 BUN 7 L Creatinine 0.67 Estim Creat Clear Calc 85.3 Estimated GFR > 60 Random Glucose 116 H Calcium 8.5 Preliminary micro results at discharge 01/06/21 23:03 Blood Culture - Preliminary Blood - Venous No growth after 48 hours. 01/06/21 23:01 Blood Culture - Preliminary Blood - Venous No growth after 48 hours. Discharge Plan Discharge Patient Disposition: Home, Self-Care Referrals: Po,Roney Bueno MD [Primary Care Provider] - Discharge Medications: New nystatin 100,000 unit/mL Suspension 400,000 unit PO QID 7 Days Qty: 112 RF: 0 metronidazole 500 mg tablet 500 mg PO Q8H Qty: 12 RF: 0 cefuroxime axetil 500 mg tablet 500 mg PO Q12H Qty: 8 RF: 0 Continued paroxetine HCl 20 mg tablet 20 mg PO QAM Qty: 30 RF: 2 carisoprodol 350 mg tablet 350 mg PO NEEDED PRN (Reason: Back Pain) RF: 0 clonazepam 0.5 mg tablet 0.5 mg PO NEEDED PRN (Reason: anxiety) RF: 0 simvastatin 10 mg tablet 10 mg PO QPM RF: 0 gabapentin 300 mg capsule 300 mg PO BID PRN (Reason: Anxiety) RF: 0 magnesium 250 mg tablet 250 mg PO DAILY RF: 0 biotin 1 mg capsule 1 mg PO DAILY RF: 0 omega-3 fatty acids [Fish Oil Concentrate] 1,000 mg capsule 1,000 mg PO DAILY RF: 0 cholecalciferol (vitamin D3) 25 mcg (1,000 unit) capsule 25 mcg PO DAILY RF: 0 Discharge Orders: Discharge Order (Routine); Ordered 01/09/21 Ordered By: Valarie Fraser Diet: advance to usual diet Activity on Discharge: As tolerated Stand Alone Forms: Patient Portal Discharge page Care Plan Goals: Read below Health Concerns: Read below Plan of Treatment: You were admitted to the hospital for treatment of acute diverticulitis secondary to infection as shown in your CT scan. You were treated with IV fluid, IV antibiotics and pain medications with good response as your diet was advanced slowly with good tolerance. Continue Flagyl and Ceftin as prescribed Use nystatin mouthwash for thrush To follow-up with Dr. Post as outpatient for further evaluation of this condition
--- NOTE | 2021-01-09 10:05 | MHC.CM.PN ---
NURSE SHEEP CLIPPER NOTE ELECTONIC MEDICAL RECORD REVIEWED ALONG WITH CASE DISCUSSED WITH STAFF NURSE AND THE HOSPITALIST , MET WITH PATIENT HOME WITH NO SERVICES FAMILY TO P[ROVIDE TRANSPORTATION AT DISCHARGE PCP PATIENT TO CALL FOR [facility] FOLLOW UP
--- NOTE | 2021-01-09 11:01 | MHC.CLN ---
RE: CONSULT CONSULT COMPLETED SEE TEACHING RECORD
== END 2021-01-09 10:49 | disposition home or self-care (01) | DRG 392 ==
LOC: HO.ED 01-07 00:05 → HO.EDOVER 01-07 00:09 → HO.ICU 01-07 19:23 → HO.IMC 01-08 14:09 → HO.S3 01-08 21:53
PROVIDERS: Nurse Practitioner Family; Physician Assistant; Admitting Provider Hospitalist; Emergency Provider Internal Medicine; PCP Internal Medicine; Visit Provider Student in an Organized Health Care Education/Training Program
DX: K57.32 Diverticulitis of large intestine without perforation or abscess without bleeding (principal); K21.9 Gastro-esophageal reflux disease without esophagitis; F17.210 Nicotine dependence, cigarettes, uncomplicated; F41.9 Anxiety disorder, unspecified; F32.9 Major depressive disorder, single episode, unspecified; I10 Essential (primary) hypertension; E87.5 Hyperkalemia; E78.5 Hyperlipidemia, unspecified; E11.9 Type 2 diabetes mellitus without complications; Z20.822 Contact with and (suspected) exposure to COVID-19; Z71.6 Tobacco abuse counseling; Z88.0 Allergy status to penicillin; Z88.2 Allergy status to sulfonamides; Z79.899 Other long term (current) drug therapy
CPT/HCPCS: 36415; 74177; 80048; 80076; 81003; 83036; 83605; 83690; 83735; 85025; 85027; 87040; 87635; 96361; 96365; 96375; 99285; J0696; J1885; J2270; J2405; Q9967

== ENCOUNTER → 2021-01-25 10:03 | Outpatient (BNVA) | payer OTHER, SELFPAY | PROVIDERS: PCP Internal Medicine; Visit Provider Internal Medicine Gastroenterology | DX: K57.92 Diverticulitis of intestine, part unspecified, without perforation or abscess without bleeding (principal); K21.9 Gastro-esophageal reflux disease without esophagitis; Z71.3 Dietary counseling and surveillance | CPT/HCPCS: Q3014 ==

== ENCOUNTER 2021-02-25 11:33 | Outpatient (REF) | payer OTHER, SELFPAY ==
[2021-02-25 13:15] LABS: COVID-19 Test Negative (Negative); IDNOW Serial# 55D5AD1C
== END 2021-02-25 11:34 | disposition home or self-care (01) ==
LOC: HO.LAB 11:33
PROVIDERS: Visit Provider Internal Medicine
DX: Z20.822 Contact with and (suspected) exposure to COVID-19 (principal)
CPT/HCPCS: 36415; 87635; C9803

== ENCOUNTER → 2021-06-14 14:31 | Outpatient (BNVA) | payer OTHER, SELFPAY | PROVIDERS: PCP Internal Medicine; Visit Provider Nurse Practitioner ==

== ENCOUNTER 2021-11-05 07:55 | Day surgery (SDC) | payer OTHER, SELFPAY ==
[2021-10-29 14:49] VITALS: BMI 31.2
[2021-11-05 08:13] VITALS: BP 107/70; PULSE 88; RESP 18; TEMP 36.1; O2SAT 96
--- NOTE | 2021-11-05 08:25 | HO.ANESPROP2 ---
HPI - Anesthesia Eval Consult details Narrative: 56 F forEGD and colonoscopy PMFSH Active Problems Active Problems: All Active Problems (Updated 10/29/21 @ 14:52 by Eleni Bailey, RN) Tobacco abuse (Acute) Abdominal bloating (Acute) Colon cancer screening (Acute) Hypersomnia (Acute) Low back pain (Acute) Generalized anxiety disorder (Acute) Diverticulitis (Acute) Impaired glucose tolerance (Acute) Obesity (BMI 30-39.9) (Acute) GERD (gastroesophageal reflux disease) (Acute) Hypercholesterolemia (Acute) Past Medical History Medical History (Updated 10/29/21 @ 14:52 by Eleni Bailey, ABDULLAHI) Bilateral carpal tunnel syndrome Diverticulitis Diverticulitis GERD (gastroesophageal reflux disease) Hiatal hernia Hypercholesterolemia Impaired glucose tolerance Insomnia Obesity (BMI 30-39.9) PONV (postoperative nausea and vomiting) Family History Family History Father Myocardial infarction Skin cancer Colon polyps Mother Myocardial infarction Maternal Grandmother Bone cancer Paternal Aunt Skin cancer Brother Myocardial infarction Sister Myocardial infarction Father Skin cancer Family history of problems with anesthesia: No Surgical History Surgical History (Updated 10/29/21 @ 14:51 by Eleni Bailey, ABDULLAHI) H/O left knee surgery History of arthroscopy of left knee History of carpal tunnel release History of D&C History of esophagogastroduodenoscopy (EGD) History of fusion of cervical spine History of right knee surgery History of rotator cuff surgery History of shoulder surgery History of Problems with Anesthesia: Yes (Ponv ) Social History Social History (Updated 10/29/21 @ 14:59 by Eleni Bailey, ABDULLAHI) Household Members: Spouse Housing: House Do you presently have visiting nurse or other home services: No Alcohol intake: current Alcohol intake frequency: 0-2 drinks per day Patient Tobacco Use Status: Current everyday Tobacco user Tobacco use type: Cigarette Cigarettes Per Day: 6 Smoked in Last 30 Days: Yes e-Cigarette/Vaping Use: Never Used Second Hand Smoke Exposure: No Use of substances other than those prescribed or required for medical reasons: No Are you DNR?: No Advance Directives: Yes Advance Directives Information Provided: No Advance Directives on File: No Advance Directives Date on File: 01/07/21 service: No Current occupational status: employed Meds Allergies Allergy/AdvReac Type Severity Reaction Status Date / Time amoxicillin [Amoxicillin] Allergy Intermediate NAUSEA Verified 10/29/21 14:47 azithromycin [From Zithromax] Allergy Intermediate ITCHING Verified 10/29/21 14:47 Erythromycin Allergy Intermediate NAUSEA Verified 10/29/21 14:47 erythromycin base Allergy Intermediate NAUSEA Verified 10/29/21 14:47 [Erythromycin Base] metoclopramide Allergy Intermediate swelling Verified 10/29/21 14:47 hands/feet Sulfa (Sulfonamide Allergy Intermediate NAUSEA Verified 10/29/21 14:47 Antibiotics) trazodone Allergy Intermediate vivid Verified 10/29/21 14:47 dreams codeine Allergy Nausea Verified 11/05/21 08:19 ENVIRONMENTAL Allergy Intermediate NASAL Uncoded 10/29/21 14:47 CONGESTION, WATERY EYES Home Medications Medication Instructions Recorded Confirmed Last Taken Type biotin 1 mg capsule 1 mg PO DAILY 12/11/20 10/29/21 01/06/21 08:00 History cholecalciferol (vitamin D3) 25 25 mcg PO DAILY 12/11/20 10/29/21 01/06/21 08:00 History mcg (1,000 unit) capsule magnesium 250 mg tablet 250 mg PO DAILY 12/11/20 10/29/21 01/06/21 08:00 History omega-3 fatty acids 1,000 mg 1,000 mg PO DAILY 12/11/20 10/29/21 01/06/21 08:00 History capsule (Fish Oil Concentrate) clonazepam 0.5 mg tablet 0.5 mg PO DAILY PRN tab 03/12/21 10/29/21 Unknown History hydroxyzine HCl 25 mg tablet 25 mg PO BEDTIME PRN 06/19/21 10/29/21 Unknown History Nasal Decongestant 10/29/21 10/29/21 Unknown History Exam Exam Date and Time: November 05, 2021 0825 Height,Weight and Vital Signs: Height 5 ft Weight 72.575 kg Last Vital Signs Temp 97 F 11/05/21 08:13 Pulse 88 11/05/21 08:13 Resp 18 11/05/21 08:13 BP 107/70 11/05/21 08:13 Pulse Ox 96 11/05/21 08:13 Airway Mallampati Class: II TM Dist: >3cm Neck ROM: Full Loose/Missing/Broken Teeth: Yes (Chipped ) Heart: rrr Lungs: bl breath sounds Assessment and Plan Final Anesthetic Review Family History of Problems with Anesthesia: No History of Problems with Anesthesia: Yes (Ponv ) NPO: Yes ASA Class: II Final Preanesthetic Review: Meds/[place] Chart Reviewed Patient Risk: Intermediate Procedure Risk: Intermediate Anesthetic Plan Anesthetic Plan: MAC: Disposition: Standard PACU
[2021-11-05] MEDS: Lactated Ringers 1,000 ML 50 ML IVCONT (08:33)
--- NOTE | 2021-11-05 08:33 | MHC.SHP ---
Pre-Procedural Eval Section A Date of Service: 11/05/21 The patient is an INPATIENT: No The History & Physical has been completed within 30 days and I have reviewed it.: No Section B Chief Complaint: GERD, Screening Details of Present Illness: Colon cancer screening, GERD, dysphagia Relevant Family History (Specify if Yes): Yes Relevant Social History: Tobacco Use Present Medications: see Short Stay Collaborative assessment Medical History: Significant History (Bilateral carpal tunnel syndrome Diverticulitis Diverticulitis GERD (gastroesophageal reflux disease) Hypercholesterolemia Impaired glucose tolerance Insomnia Obesity (BMI 30-39.9)) History of Previous Operations: Relevant previous surgery/procedure and date(s) (H/O left knee surgery History of arthroscopy of left knee History of carpal tunnel release History of D&C History of fusion of cervical spine History of right knee surgery History of rotator cuff surgery History of shoulder surgery) Allergies: Allergies Allergy/AdvReac Type Severity Reaction Status Date / Time amoxicillin [Amoxicillin] Allergy Intermediate NAUSEA Verified 10/29/21 14:47 azithromycin [From Zithromax] Allergy Intermediate ITCHING Verified 10/29/21 14:47 Erythromycin Allergy Intermediate NAUSEA Verified 10/29/21 14:47 erythromycin base Allergy Intermediate NAUSEA Verified 10/29/21 14:47 [Erythromycin Base] metoclopramide Allergy Intermediate swelling Verified 10/29/21 14:47 hands/feet Sulfa (Sulfonamide Allergy Intermediate NAUSEA Verified 10/29/21 14:47 Antibiotics) trazodone Allergy Intermediate vivid Verified 10/29/21 14:47 dreams codeine Allergy Nausea Verified 11/05/21 08:19 ENVIRONMENTAL Allergy Intermediate NASAL Uncoded 10/29/21 14:47 CONGESTION, WATERY EYES Review of Systems Sugical H&P ROS: Negative: Constitution, Cardiovascular, Respiratory and Gastrointestinal Exam Surgical H&P Exam: Normal: Heart, Normal: Lungs, Normal: Extremities and Normal: Abdomen Plan Diagnosis/Plan: Change (add EGD for evaluation of GERD and dysphagia) I have reviewed the history and physical and performed a pertinent physical examination on my patient. No changes have occurred unless specified.
--- NOTE | 2021-11-05 08:37 | PCN2_ITS ---
Brief Operative Note Date of procedure: 11/05/21 Pre-op diagnosis: Colon cancer screening, GERD, dysphagia Post-op diagnosis: other (GERD, gastritis, gastric polyp, colon polyp, diverticulosis, hemorrhoids) Procedure: Procedure:? FLEXIBLE TRANSORAL UPPER GASTROINTESTINAL ENDOSCOPY WITH BIOPSIES AND ESOPHAGEAL BALLOON DILATION AND COLONOSCOPY TILL CECUM WITH BIOPSIES AND SNARE POLYPECTOMY UPPER ENDOSCOPY Consent:?Indications for the procedure and potential complications of bleeding, perforation, reaction to medications and missed diagnosis were discussed with the patient and informed consent was obtained. Instrument:?Olympus GIF H 190 mid size upper endoscope Monitoring: Vital signs and clinical assessment, continuous EKG monitoring, Pulse oximetry, Carbon Dioxide monitoring and blood pressure monitoring were done throughout the procedure. Procedure:?The patient was placed in the left lateral decubitis position and pre-procedure medications were administered and a bite block was placed. The endoscope was inserted into the mouth and advanced under direct vision to the third part of duodenum. A careful inspection was made as the upper endoscope was withdrawn including a retroflexed examination of the proximal stomach; Findings and interventions are described below. Findings: Larynx:??Edema of arytenoid cartilages Esophagus: GE junction at 35 cms. No esophagitis or Plasencia's.? Biopsies obtained from proximal esophagus to check for EOE.? Empiric balloon dilation of distal esophagus was performed with a 20 mm CRE balloon x 60 seconds. Stomach: Nodular appearing gastric mucosa in the gastric body.? Mild gastric erythema. Biopsies were obtained from the gastric body and antrum. A 4-5 mm benign appearing polyp in the gastric body alomng greater curvature.? Grade 2 flap valve on retroflexed examination of the cardia. Duodenum: Normal bulb and descending duodenum.? Biopsies were obtained from 3rd part of duodenum to check for celiac sprue. Intervention:?Biopsies as noted above COLONOSCOPY PROCEDURE NOTE Consent:?Indications for the procedure and potential complications of bleeding, perforation, reaction to medications and missed diagnosis were discussed with the patient and informed consent was obtained. Instrument:?Olympus PCF H 190 L variable stiffness pediatric colonoscope Monitoring:?Vital signs and clinical assessment, intermittent blood pressure monitoring, continuous EKG monitoring, Pulse oximetry and Carbon Dioxide monitoring were done throughout the procedure. Colon withdrawl time was 18 minutes. Procedure:?The patient was placed in the left lateral decubitis position and pre-procedure medications were administered. After a digital rectal examination of the ano-rectum, the video colonoscope was inserted into the rectum and advanced through the colon to the cecum. The colonoscope was slowly withdrawn in a retrograde panoramic fashion and the colon mucosa was carefully examined including a retroflexed view of the rectum. Findings and interventions are described below. Procedure Difficulty:?: Without difficulty Findings: Terminal Ileum:?Not evaluated Cecum:? Normal Ascending Colon:? Normal Transverse Colon:? A 7-8 mm sessile polyp in proximal TC removed with a cold snare and polyp was not retrieved Descending Colon:? Moderate diverticulosis Sigmoid Colon:? Sever diverticulosis with luminal narrowing Rectum:? A 3-4 mm sessile polyp removed with a cold bx Ano-rectum:? Moderate internal hemorrhoids and hypertrophied anal papillae Colon preparation: Excellent ? Impression and Post Procedure Diagnosis: Endoscopy Findings: LARYNX:? Changes suggestive of LPRD ESOPHAGUS: GE junction at 35 cms. No esophagitis or Plasencia's.? Biopsies obtained from proximal esophagus to check for EOE.? Empiric balloon dilation of distal esophagus was performed with a 20 mm CRE balloon x 60 seconds. No clear etiology found for dysphagia. STOMACH: Nodular appearing gastric mucosa in the gastric body.? Mild gastric erythema. Biopsies were obtained from the gastric body and antrum. A 4-5 mm benign appearing polyp in the gastric body along the greater curvature. DUODENUM: Normal, biopsied to check for celiac sprue Colonoscopy Findings: Two small polyps removed - 1 polyp was not retrieved Moderate diverticulosis seen in the left colon Moderate hemorrhoids on retroflexed exam. Plan: Await pathology results Patient has an appointment on 11/18/20 in the GI Clinic with? Esmer Foster NP. If pt has continued dysphagia, consider further evaluation with a barium swallow. On note - a Barium swallow in 12/2015 showed a normal esophagogram with minimal tertiary non propulsive contractions in the distal half of the esophagus. Repeat Colonoscopy interval based on path results - in 5 years if polyps are adenomatous and since one small polyp was not retrieved. Above findings were reviewed with the patient and GERD, Gastric polyps, colon polyps and diverticulosis handouts were given in the discharge area Anesthesia: MAC (Dr Romero) Surgeon: Jose Angel Segundo Lead Warehouse Associate: Patria Oliver Estimated blood loss (mL): 0 Pathology: other (A. small bowel bxs, R/O celiac? B. gastric antrum bxs, R/O H. pylori? C. gastric body bxs? D. gastric polyp? E. proximal esophagus bxs, R/O EOE? F. rectal polyp) Condition: stable Disposition: PACU
[2021-11-05] MEDS: Albuterol/Iprat 2.5/0.5MG 3 ML AMPUL.NEB INHALE (08:48)
[2021-11-05 08:51] VITALS: PULSE 75; RESP 16; O2SAT 100
[2021-11-05 10:11] VITALS: BP 99/59; PULSE 93; RESP 15; TEMP 36.6; O2SAT 96
[2021-11-05 10:26] VITALS: BP 117/72; PULSE 86; RESP 19; TEMP 36.6; O2SAT 97
[2021-11-05] MEDS: Acetaminophen 325 MG TABLET 650 MG PO (10:26)
== END 2021-11-05 11:10 ==
LOC: HO.SSS 07:55
PROVIDERS: PCP Internal Medicine; Visit Provider Internal Medicine Gastroenterology
PROC: (CPT 45385; principal; 2021-11-05 09:10)
DX: Z12.11 Encounter for screening for malignant neoplasm of colon (principal); K63.5 Polyp of colon; K62.1 Rectal polyp; K57.30 Diverticulosis of large intestine without perforation or abscess without bleeding; K64.8 Other hemorrhoids; K62.89 Other specified diseases of anus and rectum; R13.10 Dysphagia, unspecified; K21.9 Gastro-esophageal reflux disease without esophagitis; K29.50 Unspecified chronic gastritis without bleeding; K31.7 Polyp of stomach and duodenum; Z87.19 Personal history of other diseases of the digestive system; E78.00 Pure hypercholesterolemia, unspecified; E66.9 Obesity, unspecified; F17.210 Nicotine dependence, cigarettes, uncomplicated; R73.02 Impaired glucose tolerance (oral); Z79.899 Other long term (current) drug therapy; Z88.0 Allergy status to penicillin; Z88.1 Allergy status to other antibiotic agents; Z88.2 Allergy status to sulfonamides; Z88.8 Allergy status to other drugs, medicaments and biological substances
CPT/HCPCS: 45385; 45380; 43249; 43239; 88305; 88342; 94640; C1726; J2370; J2405

== ENCOUNTER → 2021-11-19 10:52 | Outpatient (BNVA) | payer OTHER, SELFPAY | PROVIDERS: PCP Internal Medicine; Referring Provider Internal Medicine; Visit Provider Nurse Practitioner | DX: K21.9 Gastro-esophageal reflux disease without esophagitis (principal); K63.5 Polyp of colon; K22.0 Achalasia of cardia; R14.0 Abdominal distension (gaseous); R06.2 Wheezing | CPT/HCPCS: 99212 ==

== ENCOUNTER 2021-12-07 07:24 | Outpatient (REF) | payer OTHER, SELFPAY ==
[2021-12-07 08:26] LABS: Estimated Average Glucose 111 mg/dL; Hemoglobin A1c % 5.5 %
[2021-12-07 08:48] LABS: Alanine Aminotransferase 27 U/L (0-31); Albumin Level 4.3 g/dL (3.5-5.0); Alkaline Phosphatase 95 U/L (39-117); Anion Gap 16 (12-20); Aspartate Amino Transferase 35 U/L (5-31); Bilirubin Total < 0.2 mg/dL (0.0-1.0); Blood Urea Nitrogen 11 mg/dL (9-16); Calcium 9.6 mg/dL (8.4-10.2); Carbon Dioxide 26 mmol/L (22-29); Chloride 106 mmol/L (96-108); Cholesterol 253 mg/dL; Estimated Glomerular Filt Rate > 60; Glucose Random 127 mg/dL (60-115); HDL Cholesterol 48 mg/dL; LDL Cholesterol Calculated 172 mg/dl; Potassium 4.9 mmol/L (3.3-5.1); Sodium 143 mmol/L (135-145); Total Protein 6.8 g/dL (6.5-8.0); Triglycerides 166 mg/dL
== END 2021-12-07 07:25 | disposition home or self-care (01) ==
LOC: HO.LAB 07:24
PROVIDERS: Visit Provider Internal Medicine
DX: E78.00 Pure hypercholesterolemia, unspecified (principal); R73.02 Impaired glucose tolerance (oral)
CPT/HCPCS: 36415; 80053; 80061; 83036

== ENCOUNTER 2021-12-20 10:19 | Outpatient (REF) | payer OTHER, SELFPAY ==
--- NOTE | ~2021-12-20 | FL_ITS ---
EXAMINATION: FL BARIUM SWALLOW CLINICAL INFORMATION: Dysphagia. COMPARISON: None TECHNIQUE: Barium swallow examination is performed using fluoroscopic evaluation in addition to multiple fluoroscopic spot views. The patient is imaged both upright and prone and using both thick and thin sulfate along with effervescent granules. Fluoroscopy time: 1.5 minutes DAP: 5.890 Gycm2 Images: 56 FINDINGS: Oral administration of thick barium and barium coated turkey in upright view. There is normal propagation bolus from the oral cavity through the pharynx, esophagus into stomach without any evidence of obstruction, narrowing or stricture. The course, caliber and peristalsis of the esophagus is normal. On placing patient prone and oral administration of thin barium there is good distention of the entire esophagus with widely patent GE junction. No obstruction, narrowing or stricture seen. FL/FL barium swallow IMPRESSION: Unremarkable barium swallow. No obstruction or narrowing seen. The GE junction is widely patent. No gastroesophageal reflux.
== END 2021-12-20 10:20 | disposition home or self-care (01) ==
LOC: HO.XRAY 10:19
PROVIDERS: PCP Internal Medicine; Visit Provider Nurse Practitioner
DX: R13.10 Dysphagia, unspecified (principal); K22.0 Achalasia of cardia
CPT/HCPCS: 74220

== ENCOUNTER → 2021-12-31 09:30 | Outpatient (BNVA) | payer OTHER, SELFPAY | PROVIDERS: PCP Internal Medicine; Referring Provider Internal Medicine; Visit Provider Nurse Practitioner | DX: R13.10 Dysphagia, unspecified (principal); K22.0 Achalasia of cardia; K21.9 Gastro-esophageal reflux disease without esophagitis; R14.0 Abdominal distension (gaseous) | CPT/HCPCS: 99212 ==

== ENCOUNTER → 2022-02-06 10:04 | Outpatient (BNVA) | payer OTHER, SELFPAY | PROVIDERS: PCP Internal Medicine; Referring Provider Internal Medicine; Visit Provider Nurse Practitioner | DX: K30 Functional dyspepsia (principal); K21.9 Gastro-esophageal reflux disease without esophagitis; R13.10 Dysphagia, unspecified; R14.0 Abdominal distension (gaseous) | CPT/HCPCS: 99212 ==

== ENCOUNTER → 2022-02-21 13:39 | Outpatient (BNVA) | payer OTHER, SELFPAY | PROVIDERS: PCP Internal Medicine; Visit Provider Nurse Practitioner | DX: K21.9 Gastro-esophageal reflux disease without esophagitis (principal); K30 Functional dyspepsia; R13.10 Dysphagia, unspecified | CPT/HCPCS: 99212 ==

== ENCOUNTER → 2022-04-18 13:56 | Outpatient (BNVA) | payer OTHER, SELFPAY | PROVIDERS: PCP Internal Medicine; Visit Provider Nurse Practitioner | DX: R13.10 Dysphagia, unspecified (principal) | CPT/HCPCS: 99212 ==

== ENCOUNTER 2022-05-17 07:22 | Outpatient (REF) | payer OTHER, SELFPAY ==
[2022-05-17 08:00] LABS: Estimated Average Glucose 111 mg/dL; Hemoglobin A1c % 5.5 %
[2022-05-17 08:08] LABS: Alanine Aminotransferase 18 U/L (0-31); Albumin Level 4.2 g/dL (3.5-5.0); Alkaline Phosphatase 83 U/L (39-117); Anion Gap 14 (12-20); Aspartate Amino Transferase 15 U/L (5-31); Bilirubin Total 0.5 mg/dL (0.0-1.0); Blood Urea Nitrogen 12 mg/dL (9-16); Calcium 9.1 mg/dL (8.4-10.2); Carbon Dioxide 27 mmol/L (22-29); Chloride 107 mmol/L (96-108); Cholesterol 222 mg/dL; Estimated Glomerular Filt Rate > 60; Glucose Random 128 mg/dL (60-115); HDL Cholesterol 59 mg/dL; LDL Cholesterol Calculated 145 mg/dl; Potassium 5.1 mmol/L (3.3-5.1); Sodium 143 mmol/L (135-145); Total Protein 6.4 g/dL (6.5-8.0); Triglycerides 90 mg/dL
== END 2022-05-17 07:23 | disposition home or self-care (01) ==
LOC: HO.LAB 07:22
PROVIDERS: PCP Internal Medicine; Visit Provider Internal Medicine
DX: R73.02 Impaired glucose tolerance (oral) (principal); E78.00 Pure hypercholesterolemia, unspecified
CPT/HCPCS: 36415; 80053; 80061; 83036

== ENCOUNTER 2022-09-10 07:29 | Outpatient (REF) | payer OTHER, SELFPAY ==
[2022-09-10 08:10] LABS: Estimated Average Glucose 111 mg/dL; Hemoglobin A1c % 5.5 %
[2022-09-10 08:36] LABS: Alanine Aminotransferase 31 U/L (0-31); Albumin Level 4.4 g/dL (3.5-5.0); Alkaline Phosphatase 100 U/L (39-117); Anion Gap 18 (12-20); Aspartate Amino Transferase 27 U/L (5-31); Bilirubin Total 0.3 mg/dL (0.0-1.0); Blood Urea Nitrogen 8 mg/dL (9-16); Calcium 9.2 mg/dL (8.4-10.2); Carbon Dioxide 27 mmol/L (22-29); Chloride 107 mmol/L (96-108); Cholesterol 208 mg/dL; Estimated Glomerular Filt Rate > 60; Glucose Random 126 mg/dL (60-115); HDL Cholesterol 63 mg/dL; LDL Cholesterol Calculated 130 mg/dl; Potassium 5.7 mmol/L (3.3-5.1); Sodium 146 mmol/L (135-145); Total Protein 6.7 g/dL (6.5-8.0); Triglycerides 79 mg/dL
== END 2022-09-10 07:30 | disposition home or self-care (01) ==
LOC: HO.LAB 07:29
PROVIDERS: PCP Internal Medicine; Visit Provider Internal Medicine
DX: R73.02 Impaired glucose tolerance (oral) (principal); E78.00 Pure hypercholesterolemia, unspecified; R07.9 Chest pain, unspecified
CPT/HCPCS: 36415; 80053; 80061; 83036

== ENCOUNTER 2022-09-11 16:02 | Outpatient (REF) | payer OTHER, SELFPAY ==
--- NOTE | ~2022-09-11 | XR_ITS ---
EXAMINATION: XR CHEST CLINICAL INFORMATION: Chest pain COMPARISON: None TECHNIQUE: 2 views of the chest were obtained. FINDINGS: The cardiac and mediastinal contours are normal. The lungs are clear. There is no pleural effusion or pneumothorax. There are degenerative changes of the thoracic spine. There are postsurgical changes to the lower cervical spine. XR/XR chest 2V IMPRESSION: No evidence for acute disease in the chest.
== END 2022-09-11 16:03 | disposition home or self-care (01) ==
LOC: HO.XRAY 16:02
PROVIDERS: PCP Internal Medicine; Visit Provider Internal Medicine
DX: R07.9 Chest pain, unspecified (principal)
CPT/HCPCS: 71046

== ENCOUNTER 2022-10-27 11:18 | Emergency (ER) | payer OTHER, SELFPAY ==
[2022-10-27 11:25] VITALS: BP 119/88; PULSE 100; RESP 18; TEMP 36.7; O2SAT 97
--- NOTE | 2022-10-27 11:25 | ED_ITS ---
HPI - Psych General Chief Complaint: Psychiatric Symptoms <Analisa Odonnell NP - Last Filed: 10/27/22 11:28> Stated Complaint: Crisis <Analisa Odonnell NP - Last Filed: 10/27/22 11:28> Time Seen by Provider: 10/27/22 11:47 <Analisa Odonnell NP - Last Filed: 10/27/22 11:28> Source: patient and EMS <NILDA Santacruz - Last Filed: 10/27/22 16:55> Mode of arrival: EMS <NILDA Santacruz - Last Filed: 10/27/22 16:55> History of Present Illness HPI Narrative: 57-year-old female with a past medical history of diverticulitis, GERD, H LD, insomnia, obesity, presenting to the ED sent in from PCPs office for increasing depression with suicidal thoughts. History obtained from patient and sister, reports suicidal ideations have been worsening, patient has had multiple losses in the family recently. Patient reported she wanted to put her arm through a glass window so would cut her veins. Sister also reports increased agitation, generalized disconnect and no desire to see others, with decreased p.o. intake. Reports self-harm attempts in the past. Denies CP/SOB, abdominal pain, nausea/vomiting. Reports occasional/social EtOH use and THC <NILDA Santacruz - Last Filed: 10/27/22 16:55> MD complaint: feels depressed and anxiety <NILDA Santacruz - Last Filed: 10/27/22 16:55> Onset (ago): week(s) <NILDA Santacruz - Last Filed: 10/27/22 16:55> Related Data Home Medications: Home Medications Medication Instructions Recorded Confirmed biotin 1 mg capsule 1 mg PO DAILY 12/11/20 10/20/22 cholecalciferol (vitamin D3) 25 25 mcg PO DAILY 12/11/20 10/20/22 mcg (1,000 unit) capsule omega-3 fatty acids 1,000 mg 1,000 mg PO DAILY 12/11/20 10/20/22 capsule (Fish Oil Concentrate) Nasal Decongestant 10/29/21 10/20/22 Previous Rx's Medication Instructions Recorded albuterol sulfate 90 mcg/actuation 1 puff inhalation QID PRN 11/19/21 aerosol inhaler (ProAir HFA) shortness of breath or wheezing #8.5 grams dicyclomine 10 mg capsule 10 mg PO QIDACHS #120 caps 12/31/21 carisoprodol 350 mg tablet 350 mg PO TID PRN Back Pain 30 05/01/22 days #90 tabs AUTO PAP 8-20 cm H20 Humidified AIR #1 ea 05/22/22 atorvastatin 20 mg tablet 20 mg PO DAILY #30 tabs 05/22/22 pantoprazole 40 mg tablet,delayed 40 mg PO BID 90 days #180 tabs 05/22/22 release bupropion HCl 150 mg 24 hr tablet, 150 mg PO QAM #30 tabs 09/12/22 extended release zolpidem 6.25 mg tablet,extended 6.25 mg PO BEDTIME PRN sleep #20 09/12/22 release,multiphase (Ambien CR) tabs prednisone 10 mg tablet 10 mg PO DAILY 5 days #20 tabs 10/20/22 <Analisa Odonnell NP - Last Filed: 10/27/22 11:28> Allergies/Adverse Reactions: Allergies Allergy/AdvReac Type Severity Reaction Status Date / Time amoxicillin [Amoxicillin] Allergy Intermediate NAUSEA Verified 10/27/22 11:25 azithromycin [From Zithromax] Allergy Intermediate ITCHING Verified 10/27/22 11:25 Erythromycin Allergy Intermediate NAUSEA Verified 10/27/22 11:25 erythromycin base Allergy Intermediate NAUSEA Verified 10/27/22 11:25 [Erythromycin Base] metoclopramide Allergy Intermediate swelling Verified 10/27/22 11:25 hands/feet Sulfa (Sulfonamide Allergy Intermediate NAUSEA Verified 10/27/22 11:25 Antibiotics) trazodone Allergy Intermediate vivid Verified 10/27/22 11:25 dreams codeine Allergy Nausea Verified 10/27/22 11:25 gabapentin AdvReac Intermediate mood Verified 10/27/22 11:25 ENVIRONMENTAL Allergy Intermediate NASAL Uncoded 10/20/22 11:54 CONGESTION, WATERY EYES <Analisa Odonnell NP - Last Filed: 10/27/22 11:28> Review of Systems Review of Systems: Constitutional: No Fever, No Chills, No Fatigue, No Malaise ENT/Mouth: No Ear Pain, No Nasal Congestion, No sore throat, No Rhinorrhea, No Swallowing Difficulty Eyes: No Eye Pain, No Swelling, No Redness Cardiovascular: No Chest Pain, No SOB, No Edema, No Palpitations Respiratory: No Cough, No Sputum, No Dyspnea Gastrointestinal: No Nausea, No Vomiting, No Diarrhea, No Constipation, No Abdominal pain Genitourinary: No Dysuria, No Hematuria, No Flank Pain, No Urinary Flow Changes Musculoskeletal: No joint pain, No Myalgias, No Joint Swelling Skin: No Skin Lesions, No rash Neuro: No Weakness, No Numbness, No Dizziness, No Headache Psych: + Anxiety/Panic, + Depression, +SI, No HI/AH/VH, No Social Issues <NILDA Santacruz - Last Filed: 10/27/22 16:55> Yes all other systems are reviewed and are negative <NILDA Santacruz - Last Filed: 10/27/22 16:55> Constitutional: Constitutional: Reports as per HPI <NILDA Santacruz - Last Filed: 10/27/22 16:55> [facility] Past Medical History Attestation statement: The following information was validated with the patient. <NILDA Santacruz - Last Filed: 10/27/22 16:55> Medical History: Medical History Bilateral carpal tunnel syndrome Diverticulitis Diverticulitis Dysphagia GERD (gastroesophageal reflux disease) Hiatal hernia Hypercholesterolemia Impaired glucose tolerance Insomnia Obesity (BMI 30-39.9) PONV (postoperative nausea and vomiting) Tobacco abuse <Analisa Odonnell NP - Last Filed: 10/27/22 11:28> Surgical History: Surgical History H/O left knee surgery History of arthroscopy of left knee History of carpal tunnel release History of D&C History of esophagogastroduodenoscopy (EGD) History of fusion of cervical spine History of right knee surgery History of rotator cuff surgery History of shoulder surgery <Analisa Oodnnell NP - Last Filed: 10/27/22 11:28> Family History Family History: Family History Father Myocardial infarction Skin cancer Colon polyps Mother Myocardial infarction Maternal Grandmother Bone cancer Paternal Aunt Skin cancer Brother Myocardial infarction Substance abuse Sister Myocardial infarction Father Skin cancer <Analisa Odonnell NP - Last Filed: 10/27/22 11:28> Social History Social History: Social History Household Members: Spouse Housing: House Do you presently have visiting nurse or other home services: No Alcohol intake: current Alcohol intake frequency: 0-2 drinks per day Patient Tobacco Use Status: Former Tobacco user Tobacco use type: Cigarette Cigarettes Per Day: 6 e-Cigarette/Vaping Use: Never Used Second Hand Smoke Exposure: No Advance Directives: Yes Advance Directives on File: Yes Advance Directives Date on File: 01/07/21 service: No Current occupational status: employed Cognitive needs: No Hearing needs: No Vision needs: Yes (Glasses) <Analisa Odonnell NP - Last Filed: 10/27/22 11:28> Physical Exam Vital Signs: Vital Signs: Last Vital Signs Temp 98.0 F 10/27/22 11:25 Pulse 100 10/27/22 11:25 Resp 18 10/27/22 11:25 BP 119/88 10/27/22 11:25 Pulse Ox 97 10/27/22 11:25 O2 Del Method 10/27/22 11:25 BMI result Body Mass Index 30.0 <Analisa Odonnell NP - Last Filed: 10/27/22 11:28> Vital Signs: Last Vital Signs Temp 98.0 F 10/27/22 11:25 Pulse 100 10/27/22 11:25 Resp 18 10/27/22 11:25 BP 119/88 10/27/22 11:25 Pulse Ox 97 10/27/22 11:25 O2 Del Method 10/27/22 11:25 BMI result Body Mass Index 30.0 <NILDA Santacruz - Last Filed: 10/27/22 16:55> Const: General: cooperative and no acute distress <NILDA Santacruz - Last Filed: 10/27/22 16:55> Orientation/consciousness: patient oriented x3 <NILDA Santacruz - Last Filed: 10/27/22 16:55> Limitations: no limitations <Ally Blackburn PA - Last Filed: 10/27/22 16:55> HEENT: Head: Yes normal to inspection and Yes atraumatic <Ally Blackburn PA - Last Filed: 10/27/22 16:55> Ears: hearing grossly normal bilaterally <Ally Blackburn PA - Last Filed: 10/27/22 16:55> General nose exam: Normal external nose present <Ally Blackburn PA - Last Filed: 10/27/22 16:55> Face and sinus: Yes normal facial exam <Ally Blackburn PA - Last Filed: 10/27/22 16:55> Eyes: General: appearance normal, both eyes and all related structures <Ally Blackburn PA - Last Filed: 10/27/22 16:55> EOM: EOMs intact bilaterally <Ally Blackburn PA - Last Filed: 10/27/22 16:55> Neck: Neck: Yes normal visual inspection and Yes no meningeal signs <Ally Blackburn PA - Last Filed: 10/27/22 16:55> Resp: Effort & Inspection: normal respiratory effort and no respiratory distress <Ally Blackburn PA - Last Filed: 10/27/22 16:55> Auscultation: clear to auscultation bilaterally, no crackles, no rales, no rhonchi and no wheezes <Ally Blackburn PA - Last Filed: 10/27/22 16:55> Cardio: Rate: regular rate <Ally Blackburn PA - Last Filed: 10/27/22 16:55> Heart sounds: S1 normal heart sound present and S2 normal heart sound present <Ally Blackburn PA - Last Filed: 10/27/22 16:55> GI: Inspection: Yes normal to inspection <Ally Blackburn PA - Last Filed: 10/27/22 16:55> Palpation (GI): Soft to palpation, nontender, no guarding and not rigid <Ally Blackburn PA - Last Filed: 10/27/22 16:55> : General: Yes no CVA tenderness <Ally Blackburn PA - Last Filed: 10/27/22 16:55> Back/Spine/Pelvis: Back: no CVA tenderness <NILDA Santacruz - Last Filed: 10/27/22 16:55> Skin: Rashes: no rashes <NILDA Santacruz - Last Filed: 10/27/22 16:55> Wounds: no wounds <NILDA Santacruz - Last Filed: 10/27/22 16:55> Neuro: General: patient oriented x3, gait normal, tone normal, moves all extremities, no meningeal signs, no focal motor deficits and CN's II-XI intact bilaterally <NILDA Santacruz - Last Filed: 10/27/22 16:55> Gait exam (Neuro): Normal gait present <NILDA Santacruz - Last Filed: 10/27/22 16:55> Extrem: General: Yes normal to inspection <NILDA Santacruz - Last Filed: 10/27/22 16:55> Psych: Appearance: grossly normal <NILDA Santacruz - Last Filed: 10/27/22 16:55> Speech and movement: Normal speech and movement present <NILDA Santacruz - Last Filed: 10/27/22 16:55> Affect: Sad affect present and Anxious affect present <NILDA Santacruz - Last Filed: 10/27/22 16:55> Attitude: cooperative <NILDA Santacruz - Last Filed: 10/27/22 16:55> Thought process: Normal thought process present <NILDA Santacruz - Last Filed: 10/27/22 16:55> Thought content: Suicidality present, no homicidality, no hallucinations and Depressive thoughts present <NILDA Santacruz - Last Filed: 10/27/22 16:55> Insight: Good insight present (Psych) and Fair insight present (Psych) <NILDA Santacruz - Last Filed: 10/27/22 16:55> Judgement: Fair judgement present (Psych) <NILDA Santacruz - Last Filed: 10/27/22 16:55> Course Course Course Narrative: This is a rapid medical exam. Deferred additional HPI, ROS, PE to primary provider. 57 yo female with history of depression here with complaints of depression, suicidal thoughts seeking crisis evaluation. Will send labs, drug screen, covid screen. Direct to behavioral pod. <Analisa Odonnell NP - Last Filed: 10/27/22 11:28> This is a rapid medical exam. Deferred additional HPI, ROS, PE to primary provider. 57 yo female with history of depression here with complaints of depression, suicidal thoughts seeking crisis evaluation. Will send labs, drug screen, covid screen. Direct to behavioral pod. -labs unremarkable. Tox screen positive for THC. COVID-19/influenza/RSV negative. Patient is medically cleared for crisis evaluation, physician observation initiated at 15:30 -patient was evaluated by [facility] and cleared for discharge to follow-up with outpatient providers. Pt will be referred to [facility] urgent care <NILDA Santacruz - Last Filed: 10/27/22 16:55> Medical Decision Making Medical Decision Making [facility] Narrative: 57-year-old female with a past medical history of diverticulitis, GERD, HLD, insomnia, obesity, presenting to the ED sent in from PCPs office for increasing depression with suicidal thoughts. On exam vital signs stable, NAD, nontoxic appearing, physical exam as above, patient appears depressed/anxious and sad. Suicidal. Plan: Labs, tox screen, CARE consult <NILDA Santacruz - Last Filed: 10/27/22 16:55> Differential Diagnosis The differential diagnosis associated with the presentation includes <NILDA Santacruz - Last Filed: 10/27/22 16:55> Admission/Observation Consideration of admission/observation: Escalation of care including admission/observation considered <NILDA Santacruz - Last Filed: 10/27/22 16:55> Consult Healthcare Provider Management of the patient was discussed with: Behavioral Health Provider <NILDA Santacruz - Last Filed: 10/27/22 16:55> Lab Data [facility] Lab Attestation statement: I reviewed the patient's lab results. <NILDA Santacruz - Last Filed: 10/27/22 16:55> Result Diagrams: : 10/27/22 13:13 10/27/22 13:13 <Analisa Odonnell NP - Last Filed: 10/27/22 11:28> Labs: Lab Results 10/27/22 10/27/22 10/27/22 Range/Units 13:13 13:13 13:28 WBC 10.2 (4.8-10.8) X10*3/uL RBC 5.28 (4.20-5.50) X10*6/uL Hgb 16.0 (12.0-16.0) g/dl Hct 46.7 (37.0-47.0) % MCV 88.4 (80.0-98.0) fL MCH 30.3 (27.0-33.0) pg MCHC 34.3 (31.0-35.0) g/dl RDW 11.9 (11.0-16.0) % Plt Count 356 (160-400) X10*3/uL MPV 10.4 (9.4-12.3) fL Immature Gran % (Auto) 0.6 H (0.0-0.4) % Neut % (Auto) 66.0 (45-73) % Lymph % (Auto) 24.2 (20-40) % [place] % (Auto) 7.7 (2-11) % Eos % (Auto) 1.0 (0-4) % Baso % (Auto) 0.5 (0-2) % Lymph # (Auto) 2.5 (1.2-4.9) X10*3/uL [place] # (Auto) 0.8 (0.1-1.2) X10*3/uL Eos # (Auto) 0.1 (0.0-0.4) X10*3/uL Baso # (Auto) 0.1 (0.0-0.2) X10*3/uL Abs Immat Gran (auto) 0.06 H (0.00-0.03) X10*3/uL Absolute Neuts (auto) 6.7 (2.0-8.3) x10*3/uL Absolute Nucleated RBC 0.000 (0.0-0.012) X10*3/uL Nucleated RBC % (auto) 0.0 (0.0-0.2) /100WBC Sodium 137 (135-145) mmol/L Potassium 4.3 D (3.3-5.1) mmol/L Chloride 100 (96-108) mmol/L Carbon Dioxide 26 (22-29) mmol/L Anion Gap 15 (12-20) BUN 12 (9-16) mg/dL Creatinine 0.84 (0.5-1.4) mg/dL Estim Creat Clear Calc 65.2 Estimated GFR > 60 Random Glucose 101 (60-115) mg/dL Calcium 10.4 H D (8.4-10.2) mg/dL Total Bilirubin 0.8 (0.0-1.0) mg/dL Direct Bilirubin 0.2 (0.0-0.5) mg/dL AST 17 (5-31) U/L ALT 24 (0-31) U/L Alkaline Phosphatase 83 (39-117) U/L Total Protein 7.7 (6.5-8.0) g/dL Albumin 5.3 H (3.5-5.0) g/dL Salicylates < 5.0 L (15-30) mg/dL Urine Opiates Screen (Not Detect) Urine Fentanyl Screen (Not Detect) Acetaminophen 2 (<30) mcg/mL Ur Barbiturates Screen (Not Detect) Ur Phencyclidine Scrn (Not Detect) Ur Amphetamines Screen (Not Detect) U Benzodiazepines Scrn (Not Detect) Urine Cocaine Screen (Not Detect) U Marijuana (THC) Screen (Not Detect) Ethyl Alcohol < 10 mg/dL Influenza Type A (PCR) NEGATIVE (Negative) Influenza Type B (PCR) NEGATIVE (Negative) RSV RNA Qual (PCR) NEGATIVE (Negative) SARS-CoV-2 RNA (RT-PCR) NEGATIVE (Negative) 10/27/22 Range/Units 13:45 WBC (4.8-10.8) X10*3/uL RBC (4.20-5.50) X10*6/uL Hgb (12.0-16.0) g/dl Hct (37.0-47.0) % MCV (80.0-98.0) fL MCH (27.0-33.0) pg MCHC (31.0-35.0) g/dl RDW (11.0-16.0) % Plt Count (160-400) X10*3/uL MPV (9.4-12.3) fL Immature Gran % (Auto) (0.0-0.4) % Neut % (Auto) (45-73) % Lymph % (Auto) (20-40) % [place] % (Auto) (2-11) % Eos % (Auto) (0-4) % Baso % (Auto) (0-2) % Lymph # (Auto) (1.2-4.9) X10*3/uL [place] # (Auto) (0.1-1.2) X10*3/uL Eos # (Auto) (0.0-0.4) X10*3/uL Baso # (Auto) (0.0-0.2) X10*3/uL Abs Immat Gran (auto) (0.00-0.03) X10*3/uL Absolute Neuts (auto) (2.0-8.3) x10*3/uL Absolute Nucleated RBC (0.0-0.012) X10*3/uL Nucleated RBC % (auto) (0.0-0.2) /100WBC Sodium (135-145) mmol/L Potassium (3.3-5.1) mmol/L Chloride (96-108) mmol/L Carbon Dioxide (22-29) mmol/L Anion Gap (12-20) BUN (9-16) mg/dL Creatinine (0.5-1.4) mg/dL Estim Creat Clear Calc Estimated GFR Random Glucose (60-115) mg/dL Calcium (8.4-10.2) mg/dL Total Bilirubin (0.0-1.0) mg/dL Direct Bilirubin (0.0-0.5) mg/dL AST (5-31) U/L ALT (0-31) U/L Alkaline Phosphatase (39-117) U/L Total Protein (6.5-8.0) g/dL Albumin (3.5-5.0) g/dL Salicylates (15-30) mg/dL Urine Opiates Screen Not Detected (Not Detect) Urine Fentanyl Screen Not Detected (Not Detect) Acetaminophen (<30) mcg/mL Ur Barbiturates Screen Not Detected (Not Detect) Ur Phencyclidine Scrn Not Detected (Not Detect) Ur Amphetamines Screen Not Detected (Not Detect) U Benzodiazepines Scrn Not Detected (Not Detect) Urine Cocaine Screen Not Detected (Not Detect) U Marijuana (THC) Screen POSITIVE H (Not Detect) Ethyl Alcohol mg/dL Influenza Type A (PCR) (Negative) Influenza Type B (PCR) (Negative) RSV RNA Qual (PCR) (Negative) SARS-CoV-2 RNA (RT-PCR) (Negative) <Analisa Odonnell, WAGE ANALYST - Last Filed: 10/27/22 11:28> Lab Results 10/27/22 10/27/22 10/27/22 Range/Units 13:13 13:13 13:28 WBC 10.2 (4.8-10.8) X10*3/uL RBC 5.28 (4.20-5.50) X10*6/uL Hgb 16.0 (12.0-16.0) g/dl Hct 46.7 (37.0-47.0) % MCV 88.4 (80.0-98.0) fL MCH 30.3 (27.0-33.0) pg MCHC 34.3 (31.0-35.0) g/dl RDW 11.9 (11.0-16.0) % Plt Count 356 (160-400) X10*3/uL MPV 10.4 (9.4-12.3) fL Immature Gran % (Auto) 0.6 H (0.0-0.4) % Neut % (Auto) 66.0 (45-73) % Lymph % (Auto) 24.2 (20-40) % [place] % (Auto) 7.7 (2-11) % Eos % (Auto) 1.0 (0-4) % Baso % (Auto) 0.5 (0-2) % Lymph # (Auto) 2.5 (1.2-4.9) X10*3/uL [place] # (Auto) 0.8 (0.1-1.2) X10*3/uL Eos # (Auto) 0.1 (0.0-0.4) X10*3/uL Baso # (Auto) 0.1 (0.0-0.2) X10*3/uL Abs Immat Gran (auto) 0.06 H (0.00-0.03) X10*3/uL Absolute Neuts (auto) 6.7 (2.0-8.3) x10*3/uL Absolute Nucleated RBC 0.000 (0.0-0.012) X10*3/uL Nucleated RBC % (auto) 0.0 (0.0-0.2) /100WBC Sodium 137 (135-145) mmol/L Potassium 4.3 D (3.3-5.1) mmol/L Chloride 100 (96-108) mmol/L Carbon Dioxide 26 (22-29) mmol/L Anion Gap 15 (12-20) BUN 12 (9-16) mg/dL Creatinine 0.84 (0.5-1.4) mg/dL Estim Creat Clear Calc 65.2 Estimated GFR > 60 Random Glucose 101 (60-115) mg/dL Calcium 10.4 H D (8.4-10.2) mg/dL Total Bilirubin 0.8 (0.0-1.0) mg/dL Direct Bilirubin 0.2 (0.0-0.5) mg/dL AST 17 (5-31) U/L ALT 24 (0-31) U/L Alkaline Phosphatase 83 (39-117) U/L Total Protein 7.7 (6.5-8.0) g/dL Albumin 5.3 H (3.5-5.0) g/dL Salicylates < 5.0 L (15-30) mg/dL Urine Opiates Screen (Not Detect) Urine Fentanyl Screen (Not Detect) Acetaminophen 2 (<30) mcg/mL Ur Barbiturates Screen (Not Detect) Ur Phencyclidine Scrn (Not Detect) Ur Amphetamines Screen (Not Detect) U Benzodiazepines Scrn (Not Detect) Urine Cocaine Screen (Not Detect) U Marijuana (THC) Screen (Not Detect) Ethyl Alcohol < 10 mg/dL Influenza Type A (PCR) NEGATIVE (Negative) Influenza Type B (PCR) NEGATIVE (Negative) RSV RNA Qual (PCR) NEGATIVE (Negative) SARS-CoV-2 RNA (RT-PCR) NEGATIVE (Negative) 10/27/22 Range/Units 13:45 WBC (4.8-10.8) X10*3/uL RBC (4.20-5.50) X10*6/uL Hgb (12.0-16.0) g/dl Hct (37.0-47.0) % MCV (80.0-98.0) fL MCH (27.0-33.0) pg MCHC (31.0-35.0) g/dl RDW (11.0-16.0) % Plt Count (160-400) X10*3/uL MPV (9.4-12.3) fL Immature Gran % (Auto) (0.0-0.4) % Neut % (Auto) (45-73) % Lymph % (Auto) (20-40) % [place] % (Auto) (2-11) % Eos % (Auto) (0-4) % Baso % (Auto) (0-2) % Lymph # (Auto) (1.2-4.9) X10*3/uL [place] # (Auto) (0.1-1.2) X10*3/uL Eos # (Auto) (0.0-0.4) X10*3/uL Baso # (Auto) (0.0-0.2) X10*3/uL Abs Immat Gran (auto) (0.00-0.03) X10*3/uL Absolute Neuts (auto) (2.0-8.3) x10*3/uL Absolute Nucleated RBC (0.0-0.012) X10*3/uL Nucleated RBC % (auto) (0.0-0.2) /100WBC Sodium (135-145) mmol/L Potassium (3.3-5.1) mmol/L Chloride (96-108) mmol/L Carbon Dioxide (22-29) mmol/L Anion Gap (12-20) BUN (9-16) mg/dL Creatinine (0.5-1.4) mg/dL Estim Creat Clear Calc Estimated GFR Random Glucose (60-115) mg/dL Calcium (8.4-10.2) mg/dL Total Bilirubin (0.0-1.0) mg/dL Direct Bilirubin (0.0-0.5) mg/dL AST (5-31) U/L ALT (0-31) U/L Alkaline Phosphatase (39-117) U/L Total Protein (6.5-8.0) g/dL Albumin (3.5-5.0) g/dL Salicylates (15-30) mg/dL Urine Opiates Screen Not Detected (Not Detect) Urine Fentanyl Screen Not Detected (Not Detect) Acetaminophen (<30) mcg/mL Ur Barbiturates Screen Not Detected (Not Detect) Ur Phencyclidine Scrn Not Detected (Not Detect) Ur Amphetamines Screen Not Detected (Not Detect) U Benzodiazepines Scrn Not Detected (Not Detect) Urine Cocaine Screen Not Detected (Not Detect) U Marijuana (THC) Screen POSITIVE H (Not Detect) Ethyl Alcohol mg/dL Influenza Type A (PCR) (Negative) Influenza Type B (PCR) (Negative) RSV RNA Qual (PCR) (Negative) SARS-CoV-2 RNA (RT-PCR) (Negative) <NILDA Santacruz - Last Filed: 10/27/22 16:55> Independent Historian Clinical information obtained from an independent historian. History obtained from or confirmed by: Other (Sibling) <NILDA Santacruz - Last Filed: 10/27/22 16:55> External Record Review External record reviewed: Office record and Outpatient record <NILDA Santacruz - Last Filed: 10/27/22 16:55> Discharge Plan Discharge Clinical Impression: Suicidal ideations, Depressed <Analisa Odonnell NP - Last Filed: 10/27/22 11:28> Patient Disposition: Still a Patient <Analisa Odonnell NP - Last Filed: 10/27/22 11:28> Prescriptions: No Action carisoprodol 350 mg tablet 350 mg PO TID PRN (Reason: Back Pain) 30 Days Qty: 90 0RF Rx Instructions: Back spasms Nasal Decongestant Label Comments: [employer] taken daily biotin 1 mg capsule 1 mg PO DAILY omega-3 fatty acids [Fish Oil Concentrate] 1,000 mg capsule 1,000 mg PO DAILY cholecalciferol (vitamin D3) 25 mcg (1,000 unit) capsule 25 mcg PO DAILY zolpidem [Ambien CR] 6.25 mg tablet,ext release multiphase 6.25 mg PO BEDTIME PRN (Reason: sleep) Qty: 20 0RF bupropion HCl 150 mg tablet extended release 24 hr 150 mg PO QAM Qty: 30 3RF prednisone 10 mg tablet 10 mg PO DAILY 5 Days Qty: 20 0RF Rx Instructions: Take 4 tabs p.o. daily x5 days (DME) AUTO PAP 8-20 cm H20 Humidified AIR See Rx Instructions .Route .MEDSUPPLY Qty: 1 0RF Rx Instructions: As directed atorvastatin 20 mg tablet 20 mg PO DAILY Qty: 30 5RF pantoprazole 40 mg tablet,delayed release (DR/EC) 40 mg PO BID 90 Days Qty: 180 2RF albuterol sulfate [ProAir HFA] 90 mcg/actuation HFA aerosol inhaler 1 puff inhalation QID PRN (Reason: shortness of breath or wheezing) Qty: 8.5 3RF dicyclomine 10 mg capsule 10 mg PO QIDACHS Qty: 120 3RF Hold Instructions: Doctor's Order <Analisa Odonnell NP - Last Filed: 10/27/22 11:28> Interventions: [place]-Suicide Risk Severity Scale Last Done: 10/27/22 14:17 <Analisa Odonnell NP - Last Filed: 10/27/22 11:28>
[2022-10-27 13:18] LABS: MANUAL DIFF FLAG NO
[2022-10-27 13:19] LABS: Basophils Absolute Auto 0.1 X10*3/uL (0.0-0.2); Basophils Percent Auto 0.5 % (0-2); Eosinophils Absolute Auto 0.1 X10*3/uL (0.0-0.4); Hematocrit 46.7 % (37.0-47.0); Imm Gran Abs Auto 0.06 X10*3/uL (0.00-0.03); Imm Gran Pct Auto 0.6 % (0.0-0.4); Lymphocytes Absolute Auto 2.5 X10*3/uL (1.2-4.9); Lymphocytes Percent Auto 24.2 % (20-40); Mean Corpuscular HGB Conc 34.3 g/dl (31.0-35.0); Mean Corpuscular Hemoglobin 30.3 pg (27.0-33.0); Mean Corpuscular Volume 88.4 fL (80.0-98.0); Mean Platelet Volume 10.4 fL (9.4-12.3); Monocytes Absolute Auto 0.8 X10*3/uL (0.1-1.2); Monocytes Percent Auto 7.7 % (2-11); Neutrophils Absolute Auto 6.7 x10*3/uL (2.0-8.3); Platelet Count 356 X10*3/uL (160-400); Red Blood Count 5.28 X10*6/uL (4.20-5.50); Red Cell Distribution Width 11.9 % (11.0-16.0); White Blood Count 10.2 X10*3/uL (4.8-10.8)
--- NOTE | 2022-10-27 13:25 | MHC.CARE ---
Care Team completed [facility] [employer] [facility] smart sheet.
[2022-10-27 13:44] LABS: Acetaminophen LAB 2 mcg/mL (<30); Alanine Aminotransferase 24 U/L (0-31); Albumin Level 5.3 g/dL (3.5-5.0); Alkaline Phosphatase 83 U/L (39-117); Anion Gap 15 (12-20); Aspartate Amino Transferase 17 U/L (5-31); Bilirubin Direct 0.2 mg/dL (0.0-0.5); Bilirubin Total 0.8 mg/dL (0.0-1.0); Blood Urea Nitrogen 12 mg/dL (9-16); Calcium 10.4 mg/dL (8.4-10.2); Carbon Dioxide 26 mmol/L (22-29); Chloride 100 mmol/L (96-108); Creatinine Clr Calc Pharmacy 65.2; Estimated Glomerular Filt Rate > 60; Ethanol < 10 mg/dL; Glucose Random 101 mg/dL (60-115); Potassium 4.3 mmol/L (3.3-5.1); Salicylate < 5.0 mg/dL (15-30); Sodium 137 mmol/L (135-145); Total Protein 7.7 g/dL (6.5-8.0)
[2022-10-27 14:03] LABS: Amphetamine Screen Urine Not Detected (Not Detect); Barbiturates, Urine Not Detected (Not Detect); Benzodiazepines Screen Urine Not Detected (Not Detect); Cannabinoid Screen Urine POSITIVE (Not Detect); Cocaine Screen Urine Not Detected (Not Detect); Fentanyl, urine Not Detected (Not Detect); Opiate Screen Urine Not Detected (Not Detect); Phencyclidine Screen Urine Not Detected (Not Detect)
[2022-10-27 14:33] LABS: Influenza A PCR NEGATIVE (Negative); Influenza B PCR NEGATIVE (Negative); Resp Syncy Virus RNA Qual PCR NEGATIVE (Negative); SARS COV2 PCR INHOUSE NEGATIVE (Negative)
--- NOTE | 2022-10-27 14:51 | PC.NURSE ---
patient calm and cooperative with care. eating lunch with her sister. CONCEPCIONN at the bedside
== END 2022-10-27 17:02 | disposition home or self-care (01) ==
PROVIDERS: Nurse Practitioner Family; Physician Assistant; Emergency Provider Emergency Medicine; PCP Internal Medicine
DX: R45.851 Suicidal ideations (principal); F32.A Depression, unspecified; F41.9 Anxiety disorder, unspecified; Z20.822 Contact with and (suspected) exposure to COVID-19; E78.5 Hyperlipidemia, unspecified; F12.90 Cannabis use, unspecified, uncomplicated; Z91.52 Personal history of nonsuicidal self-harm; Z87.891 Personal history of nicotine dependence; Z79.899 Other long term (current) drug therapy; Z79.02 Long term (current) use of antithrombotics/antiplatelets
CPT/HCPCS: 0241U; 80048; 80076; 80143; 80179; 80307; 82077; 85025; 99284

== ENCOUNTER → 2022-11-12 08:20 | Outpatient (BNVA) | payer OTHER, SELFPAY | PROVIDERS: PCP Internal Medicine; Referring Provider Internal Medicine; Visit Provider Nurse Practitioner | DX: R13.10 Dysphagia, unspecified (principal); K57.92 Diverticulitis of intestine, part unspecified, without perforation or abscess without bleeding; K21.9 Gastro-esophageal reflux disease without esophagitis; K30 Functional dyspepsia | CPT/HCPCS: 99212 ==

== ENCOUNTER → 2022-11-28 15:04 | Outpatient (BNVA) | payer OTHER, SELFPAY | PROVIDERS: PCP Internal Medicine; Visit Provider Nurse Practitioner | DX: R10.9 Unspecified abdominal pain (principal); K21.9 Gastro-esophageal reflux disease without esophagitis; Z79.899 Other long term (current) drug therapy | CPT/HCPCS: 99212 ==

== ENCOUNTER 2023-01-01 13:28 | Outpatient (REF) | payer OTHER, SELFPAY ==
--- NOTE | ~2023-01-01 | CT_ITS ---
EXAMINATION: CT ABDOMEN AND PELVIS WITH CONTRAST CLINICAL INFORMATION: Abdominal pain COMPARISON: 01/06/2021 TECHNIQUE: Multidetector volumetric images were obtained from the superior aspect of the liver through the pubic symphysis following administration 85 mL of Omnipaque 350 intravenous contrast. Sagittal and coronal reformatted images were obtained on the technologist's workstation. Oral contrast: No This CT examination was performed using dose optimization techniques as appropriate, variously including the following: *Automated exposure control *Adjustment of mA and/or kV according to patient size (this includes techniques or standardized protocols for targeted exams where dose is matched to indication/reason for exam; i.e. extremities or head) *Use of iterative reconstruction technique DLP: 571 mGy-cm FINDINGS: LUNG BASES: The visualized lung bases are unremarkable. LIVER, GALLBLADDER, AND BILIARY TREE: The liver is normal in size, shape, and attenuation. No focal hepatic lesion or biliary ductal dilatation is present. The gallbladder is unremarkable with no evidence of radiopaque gallstones, gallbladder wall thickening, or obvious pericholecystic inflammatory changes. PANCREAS: Unremarkable. SPLEEN: Unremarkable. ADRENAL GLANDS: Unremarkable. KIDNEYS AND URETERS: The kidneys are normal in size, shape, and attenuation. No hydronephrosis, hydroureter, or calculi seen. No perinephric stranding. BLADDER: Unremarkable. GASTROINTESTINAL TRACT: Colonic diverticulosis, no CT findings of diverticulitis. Appendix is within normal limits. ABDOMINAL WALL: No significant hernia is appreciated. LYMPH NODES: Normal. VASCULAR: Unremarkable. PELVIC VISCERA: Unremarkable. OSSEOUS STRUCTURES: Unremarkable. CT/CT abdomen pelvis w IV con IMPRESSION: No significant abnormality. Fleischner guidelines were followed.
[2023-01-01] MEDS: iohexoL 350 MG/ML 100 ML INFUS..BTL IV (15:53)
[2023-01-01] MEDS: Barium Sulfate Oral (Mocha) 450 ML ORAL.SUSP 900 ML PO (15:58)
== END 2023-01-01 13:29 | disposition home or self-care (01) ==
LOC: HO.CT 13:28
PROVIDERS: PCP Internal Medicine; Visit Provider Nurse Practitioner
DX: R10.9 Unspecified abdominal pain (principal)
CPT/HCPCS: 74177; Q9967

== ENCOUNTER → 2023-02-04 09:19 | Outpatient (BNVA) | payer OTHER, SELFPAY | PROVIDERS: PCP Internal Medicine; Referring Provider Internal Medicine; Visit Provider Nurse Practitioner | DX: R10.9 Unspecified abdominal pain (principal); K21.9 Gastro-esophageal reflux disease without esophagitis; K30 Functional dyspepsia; Z79.899 Other long term (current) drug therapy | CPT/HCPCS: 99212 ==

== ENCOUNTER 2023-03-27 16:05 | Outpatient (REF) | payer OTHER, SELFPAY ==
[2023-03-27 16:23] LABS: MANUAL DIFF FLAG NO
[2023-03-27 16:45] LABS: Basophils Absolute Auto 0.1 X10*3/uL (0.0-0.2); Basophils Percent Auto 0.6 % (0-2); Eosinophils Absolute Auto 0.1 X10*3/uL (0.0-0.4); Eosinophils Percent Auto 1.3 % (0-4); Hematocrit 42.7 % (37.0-47.0); Hemoglobin 14.2 g/dl (12.0-16.0); Imm Gran Abs Auto 0.02 X10*3/uL (0.00-0.03); Imm Gran Pct Auto 0.2 % (0.0-0.4); Lymphocytes Absolute Auto 2.5 X10*3/uL (1.2-4.9); Lymphocytes Percent Auto 30.5 % (20-40); Mean Corpuscular HGB Conc 33.3 g/dl (31.0-35.0); Mean Corpuscular Hemoglobin 29.3 pg (27.0-33.0); Mean Platelet Volume 10.7 fL (9.4-12.3); Monocytes Absolute Auto 0.6 X10*3/uL (0.1-1.2); Monocytes Percent Auto 7.5 % (2-11); Neutrophils Absolute Auto 4.9 x10*3/uL (2.0-8.3); Neutrophils Percent Auto 59.9 % (45-73); Platelet Count 266 X10*3/uL (160-400); Red Blood Count 4.85 X10*6/uL (4.20-5.50); Red Cell Distribution Width 12.7 % (11.0-16.0); White Blood Count 8.2 X10*3/uL (4.8-10.8)
[2023-03-27 17:31] LABS: Alanine Aminotransferase 22 U/L (0-31); Albumin Level 4.5 g/dL (3.5-5.0); Alkaline Phosphatase 96 U/L (39-117); Anion Gap 13 (12-20); Aspartate Amino Transferase 15 U/L (5-31); Bilirubin Total 0.4 mg/dL (0.0-1.0); Blood Urea Nitrogen 7 mg/dL (9-16); Calcium 9.4 mg/dL (8.4-10.2); Carbon Dioxide 27 mmol/L (22-29); Chloride 107 mmol/L (96-108); Estimated Glomerular Filt Rate > 60; Glucose Random 116 mg/dL (60-115); Lipase 20 U/L (8-78); Potassium 4.8 mmol/L (3.3-5.1); Sodium 142 mmol/L (135-145); Total Protein 6.5 g/dL (6.5-8.0)
[2023-03-27 18:01] LABS: Folate 6.2 ng/mL (> or = 4.0); Vitamin B12 305 pg/mL (200-900)
[2023-03-28 13:50] LABS: CDiff Gene PCR POSITIVE (Negative)
[2023-03-28 14:54] LABS: CDIFF Internal ctrl Dots and bkg OK (V); CDiff Toxin Negative (Negative)
[2023-03-28 15:03] LABS: Adenovirus F 40/41 Not Detected (Not Detect.); Astrovirus Not Detected (Not Detect.); Campylobacter Not Detected (Not Detect.); Cryptosporidium Not Detected (Not Detect.); Cyclospora cayetanensis Not Detected (Not Detect.); E. coli EAEC Not Detected (Not Detect.); E. coli EPEC Not Detected (Not Detect.); E. coli ETEC Not Detected (Not Detect.); E. coli STEC Not Detected (Not Detect.); Entamoeba histolytica Not Detected (Not Detect.); Giardia lamblia Not Detected (Not Detect.); Norovirus GI/GII Not Detected (Not Detect.); Plesiomonas shigelloides Not Detected (Not Detect.); Rotavirus A Not Detected (Not Detect.); Salmonella Not Detected (Not Detect.); Sapovirus Not Detected (Not Detect.); Shigella sp./EIEC Not Detected (Not Detect.); Vibrio Not Detected (Not Detect.); Vibrio Cholerae Not Detected (Not Detect.); Yersinia enterocolitica Not Detected (Not Detect.)
== END 2023-03-27 16:06 | disposition home or self-care (01) ==
LOC: HO.LAB 16:05
PROVIDERS: PCP Internal Medicine; Visit Provider Internal Medicine Gastroenterology
DX: R19.7 Diarrhea, unspecified (principal)
CPT/HCPCS: 36415; 80053; 82607; 82746; 83690; 85025; 87324; 87493; 87507

== ENCOUNTER 2023-04-09 10:47 | Outpatient (REF) | payer OTHER, SELFPAY ==
[2023-04-09 11:50] LABS: CDiff Gene PCR NEGATIVE (Negative)
== END 2023-04-09 10:48 | disposition home or self-care (01) ==
LOC: HO.LNP 10:47
PROVIDERS: Visit Provider Nurse Practitioner
DX: A04.72 Enterocolitis due to Clostridium difficile, not specified as recurrent (principal)
CPT/HCPCS: 87493

== ENCOUNTER 2023-04-14 14:02 | Outpatient (REF) | payer OTHER, SELFPAY ==
[2023-04-14 14:18] LABS: MANUAL DIFF FLAG NO
[2023-04-14 14:47] LABS: Basophils Absolute Auto 0.1 X10*3/uL (0.0-0.2); Basophils Percent Auto 0.5 % (0-2); Eosinophils Absolute Auto 0.1 X10*3/uL (0.0-0.4); Eosinophils Percent Auto 0.6 % (0-4); Hematocrit 44.2 % (37.0-47.0); Hemoglobin 14.8 g/dl (12.0-16.0); Imm Gran Abs Auto 0.04 X10*3/uL (0.00-0.03); Imm Gran Pct Auto 0.4 % (0.0-0.4); Lymphocytes Absolute Auto 2.4 X10*3/uL (1.2-4.9); Lymphocytes Percent Auto 25.5 % (20-40); Mean Corpuscular HGB Conc 33.5 g/dl (31.0-35.0); Mean Corpuscular Hemoglobin 29.2 pg (27.0-33.0); Mean Corpuscular Volume 87.4 fL (80.0-98.0); Mean Platelet Volume 10.7 fL (9.4-12.3); Monocytes Absolute Auto 0.6 X10*3/uL (0.1-1.2); Monocytes Percent Auto 6.9 % (2-11); Neutrophils Absolute Auto 6.1 x10*3/uL (2.0-8.3); Neutrophils Percent Auto 66.1 % (45-73); Platelet Count 282 X10*3/uL (160-400); Red Blood Count 5.06 X10*6/uL (4.20-5.50); Red Cell Distribution Width 12.4 % (11.0-16.0); White Blood Count 9.3 X10*3/uL (4.8-10.8)
[2023-04-14 15:26] LABS: Alanine Aminotransferase 27 U/L (0-31); Albumin Level 4.7 g/dL (3.5-5.0); Alkaline Phosphatase 90 U/L (39-117); Anion Gap 17 (12-20); Aspartate Amino Transferase 16 U/L (5-31); Bilirubin Total 0.5 mg/dL (0.0-1.0); Blood Urea Nitrogen 8 mg/dL (9-16); Carbon Dioxide 28 mmol/L (22-29); Chloride 102 mmol/L (96-108); Estimated Glomerular Filt Rate > 60; Glucose Random 103 mg/dL (60-115); Sodium 142 mmol/L (135-145)
[2023-04-14 15:41] LABS: Free T4 (Free Thyroxine) 0.97 ng/dL (0.71-1.85); Thyroid Stimulating Hormone 1.99 uIU/mL (0.32-4.0)
== END 2023-04-14 14:03 | disposition home or self-care (01) ==
LOC: HO.LAB 14:02
PROVIDERS: PCP Internal Medicine; Visit Provider Internal Medicine
DX: R19.7 Diarrhea, unspecified (principal)
CPT/HCPCS: 36415; 80053; 84439; 84443; 85025

== ENCOUNTER 2023-04-15 10:46 | Outpatient (REF) | payer OTHER, SELFPAY ==
[2023-04-15 12:07] LABS: Leukocytes Stool Qualitative NEGATIVE (NEGATIVE)
== END 2023-04-15 10:47 | disposition home or self-care (01) ==
LOC: HO.LNP 10:46
PROVIDERS: Visit Provider Internal Medicine
DX: R19.7 Diarrhea, unspecified (principal)
CPT/HCPCS: 89055

== ENCOUNTER → 2023-04-16 10:38 | Outpatient (BNVA) | payer OTHER, SELFPAY | PROVIDERS: PCP Internal Medicine; Visit Provider Nurse Practitioner | DX: A04.72 Enterocolitis due to Clostridium difficile, not specified as recurrent (principal); K30 Functional dyspepsia; K21.9 Gastro-esophageal reflux disease without esophagitis | CPT/HCPCS: 99212 ==

== ENCOUNTER 2023-04-20 15:51 | Emergency (ER) | payer OTHER, SELFPAY ==
--- NOTE | ~2023-04-20 | XR_ITS ---
EXAMINATION: XR CHEST CLINICAL INFORMATION: Chest pain COMPARISON: 09/11/2022 TECHNIQUE: 2 views of the chest were obtained. FINDINGS: No significant abnormality is noted involving the heart, lungs, mediastinum or soft tissues. ACDF hardware is again noted. XR/XR chest 2V IMPRESSION: No acute intrathoracic disease.
--- NOTE | ~2023-04-20 | CT_ITS ---
EXAMINATION: CT ABDOMEN AND PELVIS WITHOUT CONTRAST CLINICAL INFORMATION: Upper abdominal pain with history of C. difficile colitis. COMPARISON: 01/01/2023 TECHNIQUE: Multidetector volumetric imaging was performed from the superior aspect of the liver through the pubic symphysis. Sagittal and coronal reformatted images were obtained on the technologist's workstation. This CT examination was performed using dose optimization techniques as appropriate, variously including the following: *Automated exposure control *Adjustment of mA and/or kV according to patient size (this includes techniques or standardized protocols for targeted exams where dose is matched to indication/reason for exam; i.e. extremities or head) *Use of iterative reconstruction technique DLP: 556 mGy-cm FINDINGS: LUNG BASES: The visualized lung bases are unremarkable. LIVER, GALLBLADDER, AND BILIARY TREE: The liver is normal in size, shape, and attenuation. No focal hepatic lesion or biliary ductal dilatation is present. The gallbladder is unremarkable with no evidence of radiopaque gallstones, gallbladder wall thickening, or obvious pericholecystic inflammatory changes. PANCREAS: Unremarkable. SPLEEN: Unremarkable. ADRENAL GLANDS: Unremarkable. KIDNEYS AND URETERS: The kidneys are normal in size, shape, and attenuation. No hydronephrosis, hydroureter, or calculi seen. No perinephric stranding. BLADDER: Unremarkable. GASTROINTESTINAL TRACT: The stomach is unremarkable. Normal caliber small bowel. No obstruction. Normal appendix. No colonic wall thickening or acute inflammation. Scattered diverticulosis without diverticulitis. No free air or free fluid. ABDOMINAL WALL: No significant hernia is appreciated. LYMPH NODES: Normal. VASCULAR: Normal caliber aorta with mild atherosclerotic calcification. PELVIC VISCERA: The uterus and adnexa are unremarkable. OSSEOUS STRUCTURES: No acute or suspicious osseous abnormality. Mild degenerative changes in the spine and hips. CT/CT abdomen pelvis wo IV con IMPRESSION: No acute findings in the abdomen or pelvis. No inflammatory changes. Fleischner guidelines were followed.
--- NOTE | 2023-04-20 16:08 | ECG_ITS ---
Test Reason : CHEST PAIN Blood Pressure : / mmHG Vent. Rate : 083 BPM Atrial Rate : 083 BPM P-R Int : 138 ms QRS Dur : 072 ms QT Int : 394 ms P-R-T Axes : 048 -03 040 degrees QTc Int : 462 ms Sinus rhythm with Premature atrial complexes Nonspecific ST abnormality Abnormal ECG No previous ECGs available Referred By: Generic ED Physician Electronically Signed By:Dwain Isbell
--- NOTE | 2023-04-20 17:10 | MHC.EDTECH ---
PT EKG TAKEN AND WAS READ BY PROVIDER .
[2023-04-20 18:03] VITALS: BP 151/99; PULSE 102; RESP 20; TEMP 36.1; O2SAT 98; BMI 31.3
--- NOTE | 2023-04-20 18:06 | ED.ABDPAIN ---
HPI - Abdominal Pain General Chief Complaint: Abdominal Pain Stated Complaint: abd pain ,sob hx of c diff Time Seen by Provider: 04/20/23 21:48 Source: patient Mode of arrival: ambulatory Limitations: no limitations History of Present Illness HPI narrative: Patient has a recurrent C diff colitis last 2 stool sample negative for C diff is still having diarrhea seen melter assistant started her on fidaxomicin complaining of upper abdominal pain for last 3 weeks which is not getting better and getting worse now this patient on the right side going to the back no urinary symptoms no fever no chills no history of kidney stone or gallstone Related Data Home Medications Medication Instructions Recorded Confirmed biotin 1 mg capsule 1 mg PO DAILY 12/11/20 12/16/22 cholecalciferol (vitamin D3) 25 25 mcg PO DAILY 12/11/20 12/16/22 mcg (1,000 unit) capsule omega-3 fatty acids 1,000 mg 1,000 mg PO DAILY 12/11/20 12/16/22 capsule (Fish Oil Concentrate) BIPAP / humidified AIR 12/16/22 12/16/22 nasal spray intranasal PRN 02/04/23 sertraline 100 mg tablet 150 mg PO QAM 02/04/23 Previous Rx's Medication Instructions Recorded albuterol sulfate 90 mcg/actuation 1 puff inhalation QID PRN 11/19/21 aerosol inhaler (ProAir HFA) shortness of breath or wheezing #8.5 grams carisoprodol 350 mg tablet 350 mg PO TID PRN Back Pain 30 05/01/22 days #90 tabs zolpidem 6.25 mg tablet,extended 6.25 mg PO BEDTIME PRN sleep #20 10/30/22 release,multiphase (Ambien CR) tabs famotidine 40 mg tablet (Pepcid) 40 mg PO BID #60 tabs 03/06/23 atorvastatin 20 mg tablet 20 mg PO DAILY #90 tabs 03/30/23 fidaxomicin 200 mg tablet (Dificid) 200 mg PO Q12H 10 days #20 tabs 04/14/23 cefuroxime axetil 250 mg tablet 250 mg PO BID 7 days #14 tabs 04/20/23 Allergies Allergy/AdvReac Type Severity Reaction Status Date / Time amoxicillin [Amoxicillin] Allergy Intermediate Nausea Verified 04/16/23 10:52 azithromycin [From Zithromax] Allergy Intermediate Itching Verified 04/16/23 10:52 environmental allergies Allergy Intermediate Nasal Verified 04/16/23 10:52 congestion, watery eyes erythromycin base Allergy Intermediate Nausea Verified 04/16/23 10:52 [Erythromycin Base] metoclopramide Allergy Intermediate swelling Verified 04/16/23 10:52 hands/feet Sulfa (Sulfonamide Allergy Intermediate Nausea Verified 04/16/23 10:52 Antibiotics) trazodone Allergy Intermediate vivid Verified 04/16/23 10:52 dreams codeine Allergy Nausea Verified 04/16/23 10:52 bupropion [From Wellbutrin] AdvReac Headaches Verified 04/16/23 10:52 Review of Systems Review of Systems Yes all other systems are reviewed and are negative PMFSH Past Medical History Medical History Abdominal bloating Achalasia of esophagus Annual physical exam Bilateral carpal tunnel syndrome Colon cancer screening Colon polyp Diverticulitis Diverticulitis Dysphagia GERD (gastroesophageal reflux disease) Hiatal hernia Hypercholesterolemia Impaired glucose tolerance Insomnia Obesity (BMI 30-39.9) PONV (postoperative nausea and vomiting) Tobacco abuse Wheezing Surgical History H/O colonoscopy H/O left knee surgery History of arthroscopy of left knee History of carpal tunnel release History of D&C History of esophagogastroduodenoscopy (EGD) History of fusion of cervical spine History of right knee surgery History of rotator cuff surgery History of shoulder surgery Family History Family History Father Myocardial infarction Skin cancer Colon polyps Mother Myocardial infarction Maternal Grandmother Bone cancer Paternal Aunt Skin cancer Brother Myocardial infarction Substance abuse Sister Myocardial infarction Father Skin cancer Social History Social History Household Members: Spouse Housing: House Do you presently have visiting nurse or other home services: No Alcohol intake: current Alcohol intake frequency: does not drink Patient Tobacco Use Status: Former Tobacco user Tobacco use type: Cigarette Cigarettes Per Day: 6 Years Smoked: Smoked in Last 30 Days: No e-Cigarette/Vaping Use: Never Used Second Hand Smoke Exposure: No Use of substances other than those prescribed or required for medical reasons: No Advance Directives: Yes Advance Directives on File: Yes Advance Directives Date on File: 01/07/21 Patient : No service: No Current occupational status: employed Cognitive needs: No Hearing needs: No Vision needs: Yes (Glasses) Physical Exam ED Vital Signs: Vital Signs - 24 hr 04/20/23 18:03 04/20/23 21:37 04/20/23 23:17 Temperature 96.9 F 97.0 F 98.7 F Pulse Rate 102 H 72 62 Respiratory Rate 20 16 16 Blood Pressure 151/99 H 134/64 135/83 Pulse Oximetry 98 98 98 Oxygen Delivery Method Room Air Room Air Room Air BMI result Body Mass Index 31.3 Appearance: Alert. Oriented X3. No acute distress. Eyes: No pallor or icterus ENT: Pharynx normal. Oral Mucosa moist Neck: Normal inspection. Neck supple. CVS: Normal heart rate and rhythm. Pulses normal. Respiratory: No respiratory distress. Equal air entry bilateral, no wheezing/rales/rhonchi Abdomen: Soft diffuse tenderness right upper quadrant and right mid lower quadrant no guarding or rebound tenderness. Bowel sounds are present, no mass palpable, no CVA tenderness Skin: Skin warm and dry. Normal skin color. Normal skin turgor. Extremities: No lower extremity edema. No calf tenderness Neuro: Oriented X 3. No motor deficit. Course Course Course Narrative: Patient complains of upper abdominal pain for several weeks, it is worsening, she also complains of pressure on her chest as well as 15 times a day of diarrhea, she is being treated for presumptive C diff by her primary doctor Denies blood in the stool, she has nausea, denies vomiting denies dysuria Labs ordered pending evaluation Medical Decision Making Medical Decision Making [facility] Narrative: Patient with right flank and right upper abdominal pain workup showed UTI with normal CBC count. We are patient home on Ceftin advised to follow with PCP CT scan is negative for acute pathology Lab Data [facility] Lab Attestation statement: I reviewed the patient's lab results. 04/20/23 21:42 04/20/23 21:42 Labs: Lab Results 04/20/23 04/20/23 04/20/23 Range/Units 21:42 21:42 21:42 WBC 9.9 (4.8-10.8) X10*3/uL RBC 4.94 (4.20-5.50) X10*6/uL Hgb 14.6 (12.0-16.0) g/dl Hct 42.6 (37.0-47.0) % MCV 86.2 (80.0-98.0) fL MCH 29.6 (27.0-33.0) pg MCHC 34.3 (31.0-35.0) g/dl RDW 12.4 (11.0-16.0) % Plt Count 289 (160-400) X10*3/uL MPV 10.3 (9.4-12.3) fL Immature Gran % (Auto) 0.3 (0.0-0.4) % Neut % (Auto) 60.3 (45-73) % Lymph % (Auto) 30.2 (20-40) % [place] % (Auto) 8.0 (2-11) % Eos % (Auto) 0.8 (0-4) % Baso % (Auto) 0.4 (0-2) % Lymph # (Auto) 3.0 (1.2-4.9) X10*3/uL [place] # (Auto) 0.8 (0.1-1.2) X10*3/uL Eos # (Auto) 0.1 (0.0-0.4) X10*3/uL Baso # (Auto) 0.0 (0.0-0.2) X10*3/uL Abs Immat Gran (auto) 0.03 (0.00-0.03) X10*3/uL Absolute Neuts (auto) 6.0 (2.0-8.3) x10*3/uL Absolute Nucleated RBC 0.000 (0.0-0.012) X10*3/uL Nucleated RBC % (auto) 0.0 (0.0-0.2) /100WBC Sodium 142 (135-145) mmol/L Potassium 5.0 (3.3-5.1) mmol/L Chloride 106 (96-108) mmol/L Carbon Dioxide 24 (22-29) mmol/L Anion Gap 17 (12-20) BUN 9 (9-16) mg/dL Creatinine 0.78 (0.5-1.4) mg/dL Estim Creat Clear Calc 71.7 Estimated GFR > 60 Random Glucose 99 (60-115) mg/dL Calcium 10.3 H (8.4-10.2) mg/dL Total Bilirubin 0.7 (0.0-1.0) mg/dL Direct Bilirubin 0.2 (0.0-0.5) mg/dL AST 19 (5-31) U/L ALT 23 (0-31) U/L Alkaline Phosphatase 89 (39-117) U/L Troponin I High Sens < 2.7 (<3.5-17.0) ng/L Total Protein 7.0 (6.5-8.0) g/dL Albumin 4.7 (3.5-5.0) g/dL Lipase 21 (8-78) U/L Urine Color Urine Appearance Urine pH (5.0-9.0) Ur Specific [place] (1.005-1.025) Urine Protein (Neg-Trace) mg/dL Urine Glucose (UA) (Negative) mg/dL Urine Ketones (Negative) mg/dL Urine Blood (Negative) Urine Nitrite (Negative) Ur Leukocyte Esterase (Negative) Urine RBC (0-2) /HPF Urine WBC (0-5) /HPF Ur Squamous Epith Cells (0-2) /HPF Urine Bacteria (None Seen) Hyaline Casts (0-2) /LPF 04/20/23 Range/Units 23:15 WBC (4.8-10.8) X10*3/uL RBC (4.20-5.50) X10*6/uL Hgb (12.0-16.0) g/dl Hct (37.0-47.0) % MCV (80.0-98.0) fL MCH (27.0-33.0) pg MCHC (31.0-35.0) g/dl RDW (11.0-16.0) % Plt Count (160-400) X10*3/uL MPV (9.4-12.3) fL Immature Gran % (Auto) (0.0-0.4) % Neut % (Auto) (45-73) % Lymph % (Auto) (20-40) % [place] % (Auto) (2-11) % Eos % (Auto) (0-4) % Baso % (Auto) (0-2) % Lymph # (Auto) (1.2-4.9) X10*3/uL [place] # (Auto) (0.1-1.2) X10*3/uL Eos # (Auto) (0.0-0.4) X10*3/uL Baso # (Auto) (0.0-0.2) X10*3/uL Abs Immat Gran (auto) (0.00-0.03) X10*3/uL Absolute Neuts (auto) (2.0-8.3) x10*3/uL Absolute Nucleated RBC (0.0-0.012) X10*3/uL Nucleated RBC % (auto) (0.0-0.2) /100WBC Sodium (135-145) mmol/L Potassium (3.3-5.1) mmol/L Chloride (96-108) mmol/L Carbon Dioxide (22-29) mmol/L Anion Gap (12-20) BUN (9-16) mg/dL Creatinine (0.5-1.4) mg/dL Estim Creat Clear Calc Estimated GFR Random Glucose (60-115) mg/dL Calcium (8.4-10.2) mg/dL Total Bilirubin (0.0-1.0) mg/dL Direct Bilirubin (0.0-0.5) mg/dL AST (5-31) U/L ALT (0-31) U/L Alkaline Phosphatase (39-117) U/L Troponin I High Sens (<3.5-17.0) ng/L Total Protein (6.5-8.0) g/dL Albumin (3.5-5.0) g/dL Lipase (8-78) U/L Urine Color Yellow Urine Appearance Cloudy Urine pH 7.5 (5.0-9.0) Ur Specific [place] 1.025 (1.005-1.025) Urine Protein Trace (Neg-Trace) mg/dL Urine Glucose (UA) Negative (Negative) mg/dL Urine Ketones 15 (Negative) mg/dL Urine Blood Negative (Negative) Urine Nitrite Negative (Negative) Ur Leukocyte Esterase Large (3+) H (Negative) Urine RBC 3-5 H (0-2) /HPF Urine WBC >50 H (0-5) /HPF Ur Squamous Epith Cells >20 (0-2) /HPF Urine Bacteria 4+ (None Seen) Hyaline Casts 3-5 (0-2) /LPF Medications Administered Discontinued Medications Generic Name Dose Route Start Last Admin Trade Name Freq PRN Reason Stop Dose Admin Oxycodone HCl 10 mg 04/20/23 22:15 04/20/23 22:34 Oxycodone Hcl Immed Release 5 Mg Tablet PO 04/20/23 22:16 10 mg ONCE ONE Administration Discharge Plan Discharge Clinical Impression: UTI (urinary tract infection) Patient Disposition: Home, Self-Care Instructions: Urinary Tract Infection in Women (DC) Additional Instructions: Your CT scan and labs are normal except for UTI Take antibiotic as prescribed Drink plenty of fluids Prescriptions: New cefuroxime axetil 250 mg tablet 250 mg PO BID 7 Days Qty: 14 0RF No Action carisoprodol 350 mg tablet 350 mg PO TID PRN (Reason: Back Pain) 30 Days Qty: 90 0RF Rx Instructions: Back spasms zolpidem [Ambien CR] 6.25 mg tablet,ext release multiphase 6.25 mg PO BEDTIME PRN (Reason: sleep) Qty: 20 0RF famotidine [Pepcid] 40 mg tablet 40 mg PO BID Qty: 60 3RF atorvastatin 20 mg tablet 20 mg PO DAILY Qty: 90 1RF Dificid 200 mg tablet 200 mg PO Q12H 10 Days Qty: 20 0RF biotin 1 mg capsule 1 mg PO DAILY omega-3 fatty acids [Fish Oil Concentrate] 1,000 mg capsule 1,000 mg PO DAILY cholecalciferol (vitamin D3) 25 mcg (1,000 unit) capsule 25 mcg PO DAILY (DME) BIPAP 17/13 humidified AIR 0 .ROUTE .MEDSUPPLY albuterol sulfate [ProAir HFA] 90 mcg/actuation HFA aerosol inhaler 1 puff inhalation QID PRN (Reason: shortness of breath or wheezing) Qty: 8.5 3RF sertraline 100 mg tablet 150 mg PO QAM nasal spray intranasal PRN
[2023-04-20 21:37] VITALS: BP 134/64; PULSE 72; RESP 16; TEMP 36.1; O2SAT 98
--- NOTE | 2023-04-20 21:46 | MHC.EDTECH ---
PATIENT SAID SHE IS UNABLE TO GIVE URINE SAMPLE AT THIS TIME .
[2023-04-20 21:47] LABS: MANUAL DIFF FLAG NO
[2023-04-20 21:48] LABS: Basophils Percent Auto 0.4 % (0-2); Eosinophils Absolute Auto 0.1 X10*3/uL (0.0-0.4); Eosinophils Percent Auto 0.8 % (0-4); Hematocrit 42.6 % (37.0-47.0); Hemoglobin 14.6 g/dl (12.0-16.0); Imm Gran Abs Auto 0.03 X10*3/uL (0.00-0.03); Imm Gran Pct Auto 0.3 % (0.0-0.4); Lymphocytes Percent Auto 30.2 % (20-40); Mean Corpuscular HGB Conc 34.3 g/dl (31.0-35.0); Mean Corpuscular Hemoglobin 29.6 pg (27.0-33.0); Mean Corpuscular Volume 86.2 fL (80.0-98.0); Mean Platelet Volume 10.3 fL (9.4-12.3); Monocytes Absolute Auto 0.8 X10*3/uL (0.1-1.2); Neutrophils Percent Auto 60.3 % (45-73); Platelet Count 289 X10*3/uL (160-400); Red Blood Count 4.94 X10*6/uL (4.20-5.50); Red Cell Distribution Width 12.4 % (11.0-16.0); White Blood Count 9.9 X10*3/uL (4.8-10.8)
[2023-04-20 22:19] LABS: Alanine Aminotransferase 23 U/L (0-31); Albumin Level 4.7 g/dL (3.5-5.0); Alkaline Phosphatase 89 U/L (39-117); Anion Gap 17 (12-20); Aspartate Amino Transferase 19 U/L (5-31); Bilirubin Direct 0.2 mg/dL (0.0-0.5); Bilirubin Total 0.7 mg/dL (0.0-1.0); Blood Urea Nitrogen 9 mg/dL (9-16); Calcium 10.3 mg/dL (8.4-10.2); Carbon Dioxide 24 mmol/L (22-29); Chloride 106 mmol/L (96-108); Creatinine Clr Calc Pharmacy 71.7; Estimated Glomerular Filt Rate > 60; Glucose Random 99 mg/dL (60-115); Lipase 21 U/L (8-78); Sodium 142 mmol/L (135-145); Troponin-I High Sensitivity < 2.7 ng/L (<3.5-17.0)
--- NOTE | 2023-04-20 22:37 | PC.NURSE ---
Pt declines meds at this time. Reports wanting CT results first. aware.
[2023-04-20 23:17] VITALS: BP 135/83; PULSE 62; RESP 16; TEMP 37.1; O2SAT 98
--- NOTE | 2023-04-20 23:17 | MHC.EDTECH ---
PATIENT URINE SAMPLE COLLECTED AND SENT TO LAB ,VITALS SIGN TAKEN .
[2023-04-20 23:21] LABS: Appearance Urine Cloudy; Color Urine Yellow; Glucose Urine UA Negative (Negative); Leukocyte Esterase Urine Large (3+) (Negative); Nitrite Urine Negative (Negative); PH 7.5 (5.0-9.0); Specific Gravity - Urine 1.025 (1.005-1.025); UMIC TRIGGER UACC YES; Urine Blood Negative (Negative); Urine Ketones 15 mg/dL (Negative); Urine Protein Trace mg/dL (Neg-Trace)
[2023-04-20 23:25] LABS: Bacteria Urine 4+ (None Seen); Squamous Epithelial Cell Urine >20 /HPF (0-2); UACC Culture Trigger YES; WBC Urine >50 /HPF (0-5)
== END 2023-04-21 00:02 | disposition home or self-care (01) ==
PROVIDERS: Physician Assistant Medical; Emergency Provider Internal Medicine; PCP Internal Medicine
DX: N39.0 Urinary tract infection, site not specified (principal); R10.10 Upper abdominal pain, unspecified; Z87.891 Personal history of nicotine dependence; Z79.899 Other long term (current) drug therapy
CPT/HCPCS: 36415; 71046; 74176; 80048; 80076; 81001; 83690; 84484; 85025; 87086; 93005; 99285

== ENCOUNTER → 2023-04-29 12:22 | Outpatient (BNVA) | payer OTHER, SELFPAY | PROVIDERS: PCP Internal Medicine; Visit Provider Nurse Practitioner | DX: A04.72 Enterocolitis due to Clostridium difficile, not specified as recurrent (principal); N39.0 Urinary tract infection, site not specified | CPT/HCPCS: 99212 ==

== ENCOUNTER → 2023-05-14 08:18 | Outpatient (BNVA) | payer OTHER, SELFPAY | PROVIDERS: Visit Provider Nurse Practitioner | DX: K21.9 Gastro-esophageal reflux disease without esophagitis (principal); K30 Functional dyspepsia; R19.7 Diarrhea, unspecified; R13.10 Dysphagia, unspecified | CPT/HCPCS: 81001; 87086; 99212 ==

== ENCOUNTER 2023-06-03 08:53 | Outpatient (AMB) | payer OTHER, SELFPAY ==
--- NOTE | 2023-06-03 09:00 | A.OFFVIS_ITS ---
Intake Vital Signs 06/03/23 09:08 Height 5 ft 4 in BP 147/78 H Blood Pressure Location Lt brachial Position Sitting Pulse 84 Intake Visit Reasons: 2 week follow up Intake Note: Florinda presents in office as a est.patient for a 2 weeks follow up. CC: Patient reports carafate has been awesome and she has been doing better. 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 Accompanied by: Self / Same As Patient Allergies amoxicillin [Amoxicillin] Allergy (Intermediate, Verified 06/03/23 09:13) Nausea azithromycin [From Zithromax] Allergy (Intermediate, Verified 06/03/23 09:13) Itching environmental allergies Allergy (Intermediate, Verified 06/03/23 09:13) Nasal congestion, watery eyes erythromycin base [Erythromycin Base] Allergy (Intermediate, Verified 06/03/23 09:13) Nausea metoclopramide Allergy (Intermediate, Verified 06/03/23 09:13) swelling hands/feet Sulfa (Sulfonamide Antibiotics) Allergy (Intermediate, Verified 06/03/23 09:13) Nausea trazodone Allergy (Intermediate, Verified 06/03/23 09:13) vivid dreams codeine Allergy (Verified 06/03/23 09:13) Nausea bupropion [From Wellbutrin] Adverse Reaction (Verified 06/03/23 09:13) Headaches HPI 2 week follow up HPI Details Assessment & Plan (1) Diarrhea: ?Code(s): R19.7 - Diarrhea, unspecified ?Plan: She is having different sx of epigastric pain with eating, LUQ pain, bloating and continued fecal urgency after eating soft to looser but not the watery c diff type. No fevers/chills. Past TICS sx were in LLQ - so bowel irritability. IS taking probiotics.? None of her pain or symptoms are as bad as when she had diverticulitis or C diff but she is concerned that there changed. I explained to her that we worry about 3 scenarios 1 is that the C diff has recurred, the 2nd is that she is having diverticulitis although this isn't consistent with her past attacks in terms of location, and the 3rd which is the most likely is that she is having continued [place] irritation from a severe insult to her GI system.? With this in mind we will try treating the symptoms by adding pantoprazole as a PPI on top of her famotidine and some Carafate at noon.? However, she was educated that if her symptoms should severely worsen that she should get in touch with me right away.? I am reluctant to do any CT scan on her because she has been CT scan quite a lot in the recent past unless we absolutely have to. Start protonix qam famotidine qhs, and carafate q noon. ROV 2 weeks. She just dropped off another urine test. (2) GERD (gastroesophageal reflux disease): ?Code(s): K21.9 - Gastro-esophageal reflux disease without esophagitis ?Qualifiers: ?Esophagitis presence:?without esophagitis? Qualified Code(s):?K21.9 - Gastro-esophageal reflux disease without esophagitis (3) Delayed gastric emptying: ?Comment: She had a bad reaction to Reglan but she also has severe lower esophageal d ysmotility that makes her more prone to GERD. a.eb ?Code(s): K30 - Functional dyspepsia (4) Dysphagia: ?Comment: Prior barium swallow showed dysmotility in the lower 3rd of the esophagus but repeat swallowing 2021 did not show any problem with motility. ?Code(s): R13.10 - Dysphagia, unspecified ? ? ? Medications: New sucralfate (Carafate) 20 mL? PO QNOON 1,000 mL 2RF R19.7 - Diarrhea, unspecified ? pantoprazole (Protonix) 40 mg? PO DAILY 30 days 30 tabs 3RF K21.9 - Gastro- esophageal reflux disease without esophagitis d TODAYS VISIT She is greatly improved/resolved with her epigastric pain with the carafate. She also continues on her pantoprazole in the morning and famotidine at night. She is now happy with her GI regimen. She decreased her dose a bit for CIC and we discussed strategies to manage any future constipation including MOM. ROV 3 mos. She will be serving on a committee about the check in [employer]. [facility] Medical History Abdominal bloating Achalasia of esophagus Annual physical exam Bilateral carpal tunnel syndrome Colon cancer screening Colon polyp Diverticulitis Diverticulitis Dysphagia GERD (gastroesophageal reflux disease) Hiatal hernia Hypercholesterolemia Impaired glucose tolerance Insomnia Obesity (BMI 30-39.9) PONV (postoperative nausea and vomiting) Tobacco abuse Wheezing Surgical History H/O colonoscopy H/O left knee surgery History of arthroscopy of left knee History of carpal tunnel release History of D&C History of esophagogastroduodenoscopy (EGD) History of fusion of cervical spine History of right knee surgery History of rotator cuff surgery History of shoulder surgery Family History Father Myocardial infarction Skin cancer Colon polyps Mother Myocardial infarction Maternal Grandmother Bone cancer Paternal Aunt Skin cancer Brother Myocardial infarction Substance abuse Sister Myocardial infarction Father Skin cancer Social History Household Members: Spouse Housing: House Do you presently have visiting nurse or other home services: No Alcohol intake: current Alcohol intake frequency: does not drink Patient Tobacco Use Status: Former Tobacco user Tobacco use type: Cigarette Cigarettes Per Day: 6 Years Smoked: e-Cigarette/Vaping Use: Never Used Second Hand Smoke Exposure: No Advance Directives Date on File: 01/07/21 service: No Current occupational status: employed Cognitive needs: No Hearing needs: No Vision needs: Yes (Glasses) Review of Systems Const Denies fatigue, Denies fever(s), Denies night sweats, Denies poor appetite and Denies weight loss Eyes Details: glasses Reports requires corrective lenses ENT Reports Normal hearing present, Denies dental pain, Denies dysphagia, Denies hearing loss, Denies mouth pain, Denies odynophagia, Denies throat swelling, Denies tongue swelling and Reports other (Dentition adequate) Card Reports no additional complaints Resp Reports no additional complaints GI Denies abdominal pain, Denies melena, Denies bloating, Denies hematochezia, Reports constipation, Denies GI cramping, Denies dysphagia, Denies excessive flatus, Denies early satiety, Reports heartburn, Denies diarrhea, Denies nausea, Denies odynophagia, Denies vomiting and Denies hematemesis Skin/Breast Denies pruritus, Denies lesions, Denies rash and Denies jaundice Neuro Reports Normal hearing present and Denies Abnormal speech present Endo Denies fatigue Aller/Immun Denies throat swelling and Denies tongue swelling Physical Exam Vital Signs: Last Vital Signs Pulse 84 06/03/23 09:08 BP 147/78 H 06/03/23 09:08 Const General: cooperative, no acute distress, well developed and well groomed Nutritional Appearance: well nourished and overweight Orientation/consciousness: oriented to person, oriented to place and oriented to time Limitations: No language barrier HEENT Head: Yes normocephalic and Yes atraumatic Eyes General: appearance normal, both eyes and all related structures Pupils: Equal, round and reactive pupils present Neck Neck: Yes normal visual inspection and Yes no lymphadenopathy Thyroid: Thyroid normal Resp Effort & Inspection: normal respiratory effort and able to speak in complete sentences Auscultation: clear to auscultation bilaterally Cardio Rate: regular rate Rhythm: regular rhythm Heart sounds: Normal, physiologic split S2 sound present Peripheral pulses: radial pulses present and posterior tibial pulses present GI Inspection: No distended, No Abdominal panniculus present and Yes obesity Palpation (GI): Soft to palpation, nontender, no guarding, not rigid and No hepatosplenomegaly present Percussion: Yes normal to percussion Auscultation: normal bowel sounds Rectal Exam - Female: deferred Skin General skin exam: no rashes or lesions noted, turgor normal, skin not dry, no jaundice, No spider nevi and no striae Rashes: no rashes Nails: normal Neuro General: oriented to person, oriented to place and oriented to time Cranial nerves: Yes Equal, round and reactive pupils present and Yes Normal hearing present Speech: No Abnormal speech present Extrem General: Yes normal to inspection, No clubbing, No cyanosis and No edema Psych Appearance: grossly normal and well kempt Mental Status: mental status grossly normal Speech and movement: Normal speech and movement present Affect: normal affect Attitude: cooperative Thought process: Normal thought process present and not confabulating Thought content: Normal thought content present Insight: Fair insight present (Psych) Judgement: Fair judgement present (Psych) Assessment & Plan Assessment & Plan (1) Diarrhea: Code(s): R19.7 - Diarrhea, unspecified Plan: She is greatly improved/resolved with her epigastric pain with the carafate. She also continues on her pantoprazole in the morning and famotidine at night. She is now happy with her GI regimen. She decreased her dose a bit for CIC and we discussed strategies to manage any future constipation including MOM. ROV 3 mos. She will be serving on a committee about the check in [employer]. (2) GERD (gastroesophageal reflux disease): Code(s): K21.9 - Gastro-esophageal reflux disease without esophagitis Qualifiers: Esophagitis presence: without esophagitis Qualified Code(s): K21.9 - Gastro-esophageal reflux disease without esophagitis (3) Delayed gastric emptying: Comment: She had a bad reaction to Reglan but she also has severe lower esophageal dysmotility that makes her more prone to GERD. a.eb Code(s): K30 - Functional dyspepsia (4) Dysphagia: Comment: Prior barium swallow showed dysmotility in the lower 3rd of the esophagus but repeat swallowing 2021 did not show any problem with motility. Code(s): R13.10 - Dysphagia, unspecified (5) C. difficile diarrhea: Comment: March 2023 Code(s): A04.72 - Enterocolitis due to Clostridium difficile, not specified as recurrent Coding Level of Care Code Est Pt Level 3 (01361) Diagnoses Diarrhea R19.7 GERD (gastroesophageal reflux disease) K21.9 Esophagitis presence: without esophagitis Delayed gastric emptying K30 Dysphagia R13.10 C. difficile diarrhea A04.72
[2023-06-03 09:08] VITALS: BP 147/78; PULSE 84
== END 2023-06-03 09:40 | disposition home or self-care (01) ==
LOC: HO.HGI 08:53
PROVIDERS: PCP Internal Medicine; Visit Provider Nurse Practitioner
DX: R19.7 Diarrhea, unspecified (principal); K21.9 Gastro-esophageal reflux disease without esophagitis; K30 Functional dyspepsia; R13.10 Dysphagia, unspecified; A04.72 Enterocolitis due to Clostridium difficile, not specified as recurrent
CPT/HCPCS: 99213

== ENCOUNTER → 2023-06-03 08:53 | Outpatient (BNVA) | payer OTHER, SELFPAY | PROVIDERS: PCP Internal Medicine; Visit Provider Nurse Practitioner | DX: R19.7 Diarrhea, unspecified (principal); K21.9 Gastro-esophageal reflux disease without esophagitis; K30 Functional dyspepsia; R13.10 Dysphagia, unspecified; A04.72 Enterocolitis due to Clostridium difficile, not specified as recurrent | CPT/HCPCS: 99212 ==

== ENCOUNTER 2023-09-16 09:52 | Outpatient (REF) | payer OTHER, SELFPAY ==
--- NOTE | ~2023-09-16 | XR_ITS ---
EXAMINATION: XR THORACOLUMBAR SPINE CLINICAL INFORMATION: Unspecified abdominal pain COMPARISON: None available. TECHNIQUE: 3 views of the thoracic spine. FINDINGS: The bones are diffusely demineralized. The patient is kyphotic. There is slight curve of the upper thoracic spine which may be due to patient positioning, muscle spasm, or true mild scoliosis. No intrinsic bony abnormality. There is multilevel degenerative disc disease with anterior marginal osteophytes. The endplates and posterior elements are normal. No fracture or subluxation. The surrounding prevertebral soft tissues are unremarkable. Anterior plate and screws are seen within the lower cervical spine. XR/XR thoracic spine 2V IMPRESSION: No compression fractures or subluxations are identified. Multilevel degenerative disc disease in the thoracic spine.
== END 2023-09-16 09:53 | disposition home or self-care (01) ==
LOC: HO.XRAY 09:52
PROVIDERS: PCP Internal Medicine; Visit Provider Nurse Practitioner
DX: A04.72 Enterocolitis due to Clostridium difficile, not specified as recurrent (principal); K30 Functional dyspepsia; K21.9 Gastro-esophageal reflux disease without esophagitis; R10.9 Unspecified abdominal pain
CPT/HCPCS: 72070; 99212

== ENCOUNTER 2023-09-16 09:52 | Outpatient (AMB) | payer OTHER, SELFPAY ==
--- NOTE | 2023-09-16 09:57 | A.OFFVIS_ITS ---
Intake Vital Signs 09/16/23 10:00 Height 5 ft 4 in Weight 157 lb 13.616 oz BMI 27.1 BP 130/81 Blood Pressure Location Lt brachial Position Sitting Pulse 73 Intake Visit Reasons: f/u C.Diff Diarrhea Intake Note: Patient presents to in office visit today in 3 months follow up of GERD and diarrhea. CC: Patient reports throbbing pain from under her breast worst under her right breast and when laying down. She reports no appetite and also states she d/c carafate due to headaches. Denies other GI symptoms today. 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 Accompanied by: Self / Same As Patient Allergies amoxicillin [Amoxicillin] Allergy (Intermediate, Verified 09/16/23 10:07) Nausea azithromycin [From Zithromax] Allergy (Intermediate, Verified 09/16/23 10:07) Itching environmental allergies Allergy (Intermediate, Verified 09/16/23 10:07) Nasal congestion, watery eyes erythromycin base [Erythromycin Base] Allergy (Intermediate, Verified 09/16/23 10:07) Nausea metoclopramide Allergy (Intermediate, Verified 09/16/23 10:07) swelling hands/feet Sulfa (Sulfonamide Antibiotics) Allergy (Intermediate, Verified 09/16/23 10:07) Nausea trazodone Allergy (Intermediate, Verified 09/16/23 10:07) vivid dreams codeine Allergy (Verified 09/16/23 10:07) Nausea bupropion [From Wellbutrin] Adverse Reaction (Verified 09/16/23 10:07) Headaches HPI f/u C.Diff Diarrhea HPI Details Assessment & Plan (1) Diarrhea: Code(s): R19.7 - Diarrhea, unspecified Plan: She is greatly improved/resolved with her epigastric pain with the carafate. She also continues on her pantoprazole in the morning and famotidine at night. She is now happy with her GI regimen. She decreased her dose a bit for CIC and we discussed strategies to manage any future constipation including MOM. EILEEN 3 mos. She will be serving on a committee about the check in [employer]. (2) GERD (gastroesophageal reflux diseas e): Code(s): K21.9 - Gastro-esophageal reflux disease without esophagitis Qualifiers: Esophagitis presence: without esophagitis Qualified Code(s): K21.9 - Gastro-esophageal reflux disease without esophagitis (3) Delayed gastric emptying: Comment: She had a bad reaction to Reglan but she also has severe lower esophageal dysmotility that makes her more prone to GERD. romeo Code(s): K30 - Functional dyspepsia (4) Dysphagia: Comment: Prior barium swallow showed dysmotility in the lower 3rd of the esophagus but repeat swallowing 2021 did not show any problem with motility. Code(s): R13.10 - Dysphagia, unspecified (5) C. difficile diarrhea: Comment: March 2023 Code(s): A04.72 - Enterocolitis due to Clostridium difficile, not specified as recurrent TODAYS VISIT The Carafate caused her headaches which sees which she stop taking it. However she did feel that helped her swallowing which is getting worse and she stopped it. Her stooling has been good. She continues to have the pain that is in the right upper quadrant just below the ribcage at the midclavicular area. At times it radiates more around to the flank. She describes the pain now is throbbing and it is worsened by laying on that side or laying straight back. It is not affected by eating or moving her bowels. There was an instance where radiated across the entire bottom ribcage but it does not appear to be doing that recently. She has done experiment with taking the Carafate more intermittently to see if she can avoid the headache until I can figure out a potential replacement for that. She also continues on famotidine and pantoprazole. Remaining get x-ray to see if there is a spinal pathology involved in her pain will also get ultrasound to rule out superior mesenteric artery syndrome since she does describe the pain as throbbing. In the past she has failed trial of dicyclomine in terms of affecting the pain so I do not think it is bowel spasm related. Return office visit after each study depending on which is performed [address] [place] [address] Medical History Annual physical exam Wheezing Dysphagia Achalasia of esophagus Colon polyp Hiatal hernia PONV (postoperative nausea and vomiting) Colon cancer screening Abdominal bloating Diverticulitis Diverticulitis Tobacco abuse Impaired glucose tolerance Bilateral carpal tunnel syndrome Obesity (BMI 30-39.9) Insomnia GERD (gastroesophageal reflux disease) Hypercholesterolemia Surgical History H/O colonoscopy History of esophagogastroduodenoscopy (EGD) History of rotator cuff surgery H/O left knee surgery History of arthroscopy of left knee History of right knee surgery History of D&C History of shoulder surgery History of carpal tunnel release History of fusion of cervical spine Family History Father Myocardial infarction Skin cancer Colon polyps Mother Myocardial infarction Maternal Grandmother Bone cancer Paternal Aunt Skin cancer Brother Myocardial infarction Substance abuse Sister Myocardial infarction Father Skin cancer Social History Household Members: Spouse Housing: House Do you presently have visiting nurse or other home services: No Alcohol intake: current Alcohol intake frequency: does not drink Comment: abdominal pain reduced per patient Patient Tobacco Use Status: Former Tobacco user Tobacco use type: Cigarette Cigarettes Per Day: 6 Years Smoked: e-Cigarette/Vaping Use: Never Used Second Hand Smoke Exposure: No Advance Directives Date on File: 01/07/21 service: No Current occupational status: employed Cognitive needs: No Hearing needs: No Vision needs: Yes (Glasses) Review of Systems Const Denies fatigue, Denies fever(s), Denies night sweats, Denies poor appetite and Denies weight loss Eyes Details: glasses Reports requires corrective lenses ENT Reports Normal hearing present, Denies dental pain, Denies dysphagia, Denies hearing loss, Denies mouth pain, Denies odynophagia, Denies throat swelling, Denies tongue swelling and Reports other (Dentition adequate) Card Reports no additional complaints Resp Reports no additional complaints GI Reports abdominal pain, Denies melena, Denies bloating, Denies hematochezia, Denies constipation, Denies GI cramping, Denies dysphagia, Denies excessive flatus, Denies early satiety, Reports heartburn, Reports diarrhea, Denies nausea, Denies odynophagia, Denies vomiting and Denies hematemesis Reports flank pain Skin/Breast Denies pruritus, Denies lesions, Denies rash and Denies jaundice Neuro Reports Normal hearing present and Denies Abnormal speech present Endo Denies fatigue Aller/Immun Denies throat swelling and Denies tongue swelling Physical Exam Vital Signs: Last Vital Signs Pulse 73 09/16/23 10:00 BP 130/81 09/16/23 10:00 BMI result Body Mass Index 27.1 Const General: cooperative, no acute distress, well developed and well groomed Nutritional Appearance: average body habitus and well nourished Orientation/consciousness: oriented to person, oriented to place and oriented to time Limitations: No language barrier HEENT Head: Yes normocephalic and Yes atraumatic Eyes General: appearance normal, both eyes and all related structures Pupils: Equal, round and reactive pupils present Neck Neck: Yes normal visual inspection and Yes no lymphadenopathy Thyroid: Thyroid normal Resp Effort & Inspection: normal respiratory effort and able to speak in complete sentences Auscultation: clear to auscultation bilaterally Cardio Rate: regular rate Rhythm: regular rhythm Heart sounds: Normal, physiologic split S2 sound present Peripheral pulses: radial pulses present and posterior tibial pulses present GI Inspection: No distended and No Abdominal panniculus present Palpation (GI): Soft to palpation, nontender, no guarding, not rigid and No hepatosplenomegaly present Percussion: Yes normal to percussion Auscultation: normal bowel sounds Rectal Exam - Female: deferred Skin General skin exam: no rashes or lesions noted, turgor normal, skin not dry, no jaundice, No spider nevi and no striae Rashes: no rashes Nails: normal Neuro General: oriented to person, oriented to place and oriented to time Cranial nerves: Yes Equal, round and reactive pupils present and Yes Normal hearing present Speech: No Abnormal speech present Extrem General: Yes normal to inspection, No clubbing, No cyanosis and No edema Psych Appearance: grossly normal and well kempt Mental Status: mental status grossly normal Speech and movement: Normal speech and movement present Affect: normal affect Attitude: cooperative Thought process: Normal thought process present and not confabulating Thought content: Normal thought content present Insight: Limited insight present (Psych) Judgement: Limited judgement present (Psych) Assessment & Plan Assessment & Plan (1) Right flank pain: Code(s): R10.9 - Unspecified abdominal pain Plan: The Carafate caused her headaches which sees which she stop taking it. However she did feel that helped her swallowing which is getting worse and she stopped it. Her stooling has been good. She continues to have the pain that is in the right upper quadrant just below the ribcage at the midclavicular area. At times it radiates more around to the flank. She describes the pain now is throbbing and it is worsened by laying on that side or laying straight back. It is not affected by eating or moving her bowels. There was an instance where radiated across the entire bottom ribcage but it does not appear to be doing that recently. She has done experiment with taking the Carafate more intermittently to see if she can avoid the headache until I can figure out a potential replacement for that. She also continues on famotidine and pantoprazole. Remaining get x-ray to see if there is a spinal pathology involved in her pain will also get ultrasound to rule out superior mesenteric artery syndrome since she does describe the pain as throbbing. In the past she has failed trial of dicyclomine in terms of affecting the pain so I do not think it is bowel spasm related. Return office visit after each study depending on which is performed 1st (2) C. difficile diarrhea: Comment: March 2023 Code(s): A04.72 - Enterocolitis due to Clostridium difficile, not specified as recurrent (3) Delayed gastric emptying: Comment: She had a bad reaction to Reglan but she also has severe lower esophageal dysmotility that makes her more prone to GERD. a.eb Code(s): K30 - Functional dyspepsia (4) GERD (gastroesophageal reflux disease): Code(s): K21.9 - Gastro-esophageal reflux disease without esophagitis Qualifiers: Esophagitis presence: without esophagitis Qualified Code(s): K21.9 - Gastro-esophageal reflux disease without esophagitis Orders: Orders US SMA 09/16/23 R10.9 - Unspecified abdominal pain XR thoracic spine 2V 09/16/23 R10.9 - Unspecified abdominal pain Coding Level of Care Code Est Pt Level 4 (59846) Diagnoses Right flank pain R10.9 C. difficile diarrhea A04.72 Delayed gastric emptying K30 Gastroesophageal reflux disease without esophagitis K21.9 Esophagitis presence: without esophagitis
[2023-09-16 10:00] VITALS: BP 130/81; PULSE 73; BMI 27.1
== END 2023-09-16 10:34 | disposition home or self-care (01) ==
PROVIDERS: PCP Internal Medicine; Visit Provider Nurse Practitioner
DX: R10.9 Unspecified abdominal pain (principal); A04.72 Enterocolitis due to Clostridium difficile, not specified as recurrent; K30 Functional dyspepsia; K21.9 Gastro-esophageal reflux disease without esophagitis
CPT/HCPCS: 99214

== ENCOUNTER 2023-09-25 08:55 | Outpatient (REF) | payer OTHER, SELFPAY | END 2023-09-25 08:56 | disposition home or self-care (01) | LOC: HO.HMGCX 08:55 | PROVIDERS: PCP Internal Medicine; Visit Provider Nurse Practitioner | DX: Z13.89 Encounter for screening for other disorder (principal) ==

== ENCOUNTER 2023-09-29 13:44 | Outpatient (REF) | payer OTHER, SELFPAY ==
--- NOTE | ~2023-09-29 | US_ITS ---
EXAMINATION: Ultrasound abdominal arterial Doppler CLINICAL INFORMATION: Right flank pain and abdominal pain. Loss of appetite. COMPARISON: CT abdomen with contrast 01/01/2023. TECHNIQUE: Doppler abdominal ultrasound was done to evaluate the visceral arteries for celiac artery compression syndrome. Grayscale, color Doppler, and spectral Doppler evaluation was performed with provocative maneuvers. FINDINGS: ABDOMINAL AORTA: Proximal to SMA: PSV 98 cm/s. Normal waveform. Distal to SMA: PSV 73 cm/s. Normal waveform. CELIAC ARTERY: Supine inspiration: PSV 109 cm/s. Normal waveform. Supine expiration: PSV 247 cm/s. Normal waveform. Erect inspiration: PSV 85 cm/s. Normal waveform. Erect expiration: PSV 73 cm/s. Normal waveform. SUPERIOR MESENTERIC ARTERY: Proximal: PSV 203 cm/s. Normal waveform. Mid: PSV 164 cm/s. Normal waveform. Distal: PSV 103 cm/s. Normal waveform. ROXANNE: PSV 225 cm/s. Normal waveform. SPLENIC ARTERY: PSV 138 cm/s. Normal waveform. HEPATIC ARTERY: PSV 101 cm/s. Normal waveform. The patient was tender over the gallbladder. Therefore the reimbursement analyst examining the gallbladder. No cholelithiasis or gallbladder wall thickening. US/US SMA IMPRESSION: Elevated velocity in the celiac artery in supine expiration which normalizes with inspiration and erect positioning. This correlates with celiac artery compression. However, on the prior CT from 01/01/2023, there is no evidence of significant compression of the celiac artery. The patient reported tenderness over the gallbladder but no cholelithiasis or gallbladder wall thickening seen.
== END 2023-09-29 13:45 | disposition home or self-care (01) ==
LOC: HO.HMGCX 13:44
PROVIDERS: PCP Internal Medicine; Visit Provider Nurse Practitioner
DX: R10.9 Unspecified abdominal pain (principal)
CPT/HCPCS: 93976

== ENCOUNTER 2023-10-16 14:09 | Outpatient (REF) | payer OTHER, SELFPAY ==
--- NOTE | ~2023-10-16 | MM_ITS ---
EXAMINATION: BONE DENSITOMETRY CLINICAL INDICATION: Abnormal findings on diagnostic imaging of other parts of musculoskeletal system. COMPARISON: This is the patient's baseline examination. TECHNIQUE: Using a [employer] DXA System (software version: 13.1) manufactured by [employer], dual-energy x-ray absorptiometry was performed of the lumbar spine and left hip. The images are of good technical quality. Summary results are attached. FINDINGS: LEFT FEMUR, NECK: BMD 0.953 g/cm2, Z-score 0.4, T-score -0.6, normal. LEFT FEMUR, TOTAL: BMD 1.044 g/cm2, Z-score 0.9, T-score 0.3, normal. AP SPINE L1-L4: BMD 1.065 g/cm2, Z-score -0.2, T-score -1.0, normal. IDENTIFIED RISK FACTORS: Alcohol (3 or more units per day), menopause, osteoporosis. HISTORY OF FRACTURE: None listed. MEDICATIONS: Calcium, vitamin D. MM/XR DEXA axial skeleton IMPRESSION: 1. DIAGNOSIS: Normal bone density based on the lowest T-score value of -1.0 in the lumbar spine applying World Health Organization criteria. 2. 10-YEAR FRACTURE RISK PREDICTION, FRAX: According to the guidelines, FRAX calculation should only be performed on patients in the osteopenia bone density category. Therefore, FRAX was not performed on this patient. 3. Treatment Recommendations: NOF guidelines recommend consideration for treatment in postmenopausal women and men age 50 and older presenting with the following: -A hip or vertebral (clinical or morphometric) fracture. -T-score less than or equal to -2.5 at the femoral neck or spine after appropriate evaluation to exclude secondary causes. -Low bone mass at the hip or spine and a 10-year fracture probability by FRAX of greater than or equal to 3% for hip fracture or greater than or equal to 20% for major osteoporotic fracture based on the [place] adapted WHO algorithm. 4. Other Recommendations: All treatment decisions require clinical judgment and consideration of individual patient factors, including patient preferences, comorbidities, previous drug use, risk factors not captured in the FRAX model (e.g. frailty, falls, vitamin D deficiency, increased bone turnover, interval significant decline in bone density) and possible under or overestimation of fracture risk by FRAX. FUTURE SCAN RECOMMENDATION: People with diagnosed cases of osteoporosis or at high risk for fracture should have regular bone mineral density tests. For patients eligible for Medicare, routine testing is allowed once every 2 years. The testing frequency can be increased to one year for patients who have rapidly progressing disease, those who are receiving or discontinuing medical therapy to restore bone mass, or have additional risk factors.
== END 2023-10-16 14:10 | disposition home or self-care (01) ==
LOC: HO.MAMMO 14:09
PROVIDERS: Visit Provider Nurse Practitioner
DX: Z13.820 Encounter for screening for osteoporosis (principal); R93.7 Abnormal findings on diagnostic imaging of other parts of musculoskeletal system; Z78.0 Asymptomatic menopausal state
CPT/HCPCS: 77080

== ENCOUNTER 2023-11-27 11:03 | Outpatient (AMB) | payer OTHER, SELFPAY ==
--- NOTE | 2023-11-27 11:10 | A.OFFVIS_ITS ---
Intake Vital Signs 11/27/23 11:16 Height 5 ft 4 in Weight 163 lb 2.273 oz BMI 28.0 BP 137/78 Blood Pressure Location Rt brachial Position Sitting Pulse 74 Intake Visit Reasons: Follow up US/XR Intake Note: Patient presents to in office visit today in follow up of US and XR. CC: Patient reports abdominal bloating and continues to have throbbing pain from under right breast with radiation to her back. She sometimes gets acid reflux. Denies other GI symptoms today. Shot Man Required: No Accompanied by: Self / Same As Patient Allergies amoxicillin [Amoxicillin] Allergy (Intermediate, Verified 11/27/23 11:28) Nausea azithromycin [From Zithromax] Allergy (Intermediate, Verified 11/27/23 11:28) Itching environmental allergies Allergy (Intermediate, Verified 11/27/23 11:28) Nasal congestion, watery eyes erythromycin base [Erythromycin Base] Allergy (Intermediate, Verified 11/27/23 11:28) Nausea metoclopramide Allergy (Intermediate, Verified 11/27/23 11:28) swelling hands/feet Sulfa (Sulfonamide Antibiotics) Allergy (Intermediate, Verified 11/27/23 11:28) Nausea trazodone Allergy (Intermediate, Verified 11/27/23 11:28) vivid dreams codeine Allergy (Verified 11/27/23 11:28) Nausea bupropion [From Wellbutrin] Adverse Reaction (Verified 11/27/23 11:28) Headaches HPI Follow up US/XR HPI Details Assessment & Plan (1) Right flank pain: Code(s): R10.9 - Unspecified abdominal pain Plan: The Carafate caused her headaches which sees which she stop taking it. However she did feel that helped her swallowing which is getting worse and she stopped it. Her stooling has been good. She continues to have the pain that is in the right upper quadrant just below the ribcage at the midclavicular area. At times it radiates more around to the flank. She describes the pain now is throbbing and it is worsened by laying on that side or laying straight back. It is not affected by eating or moving her bowels. There was an instance where radiated across the entire bottom ribcage but it does not appear to be doing that recently. She has done experiment with taking the Carafate more intermittently to see if she can avoid the headache until I can figure out a potential replacement for that. She also continues on famotidine and pantoprazole. Remaining get x-ray to see if there is a spinal pathology involved in her pain will also get ultrasound to rule out superior mesenteric artery syndrome since she does describe the pain as throbbing. In the past she has failed trial of dicyclomine in terms of affecting the pain so I do not think it is bowel spasm related. Return office visit after each study depending on which is performed 1st (2) C. difficile diarrhea: Comment: March 2023 Code(s): A04.72 - Enterocolitis due to Clostridium difficile, not specified as recurrent (3) Delayed gastric emptying: Comment: She had a bad reaction to Reglan but she also has severe lower esophageal dysmotility that makes her more prone to GERD. a.eb Code(s): K30 - Functional dyspepsia (4) GERD (gastroesophageal reflux diseas e): Code(s): K21.9 - Gastro-esophageal reflux disease without esophagitis Qualifiers: Esophagitis presence: without esophagitis Qualified Code(s): K21.9 - Gastro-esophageal reflux disease without esophagitis Orders: Orders US [facility] 09/16/23 R10.9 - Unspecifie d abdominal pain XR thoracic spine 2V 09/16/23 R10.9 - Unspecifie d abdominal pain ULTRASOUND [facility] 09/30/23 FINDINGS: ABDOMINAL AORTA: Proximal to SMA: PSV 98 cm/s. Normal waveform. Distal to SMA: PSV 73 cm/s. Normal waveform. CELIAC ARTERY: Supine inspiration: PSV 109 cm/s. Normal waveform. Supine expiration: PSV 247 cm/s. Normal waveform. Erect inspiration: PSV 85 cm/s. Normal waveform. Erect expiration: PSV 73 cm/s. Normal waveform. SUPERIOR MESENTERIC ARTERY: Proximal: PSV 203 cm/s. Normal waveform. Mid: PSV 164 cm/s. Normal waveform. Distal: PSV 103 cm/s. Normal waveform. ROXANNE: PSV 225 cm/s. Normal waveform. SPLENIC ARTERY: PSV 138 cm/s. Normal waveform. HEPATIC ARTERY: PSV 101 cm/s. Normal waveform. The patient was tender over the gallbladder. Therefore the double bottom driver examining the gallbladder. No cholelithiasis or gallbladder wall thickening. US/US SMA IMPRESSION: Elevated velocity in the celiac artery in supine expiration which normalizes with inspiration and erect positioning. This correlates with celiac artery compression. However, on the prior CT from 01/01/2023, there is no evidence of significant compression of the celiac artery. The patient reported tenderness over the gallbladder but no cholelithiasis or gallbladder wall thickening seen. X-RAY OF THORACIC SPINE 09/21/23 FINDINGS: The bones are diffusely demineralized. The patient is kyphotic. There is slight curve of the upper thoracic spine which may be due to patient positioning, muscle spasm, or true mild scoliosis. No intrinsic bony abnormality. There is multilevel degenerative disc disease with anterior marginal osteophytes. The endplates and posterior elements are normal. No fracture or subluxation. The surrounding prevertebral soft tissues are unremarkable. Anterior plate and screws are seen within the lower cervical spine. XR/XR thoracic spine 2V IMPRESSION: No compression fractures or subluxations are identified. Multilevel degenerative disc disease in the thoracic spine. TODAYS VISIT She started taking calcium with vit D and she feels that it helped her low back. I had ordered a bone density study which did not seem to show any compromise but given she is on PPI and of advancing age it is likely good to get into the habit of calcium replacement therapy. She has a lot of subjective spasms, she was rx'd a muscle relaxer with some relief by another provider (spasm also seen on thoracic spine xray). She had pain with pressure directly on her right ribs - and it is worse when she lays flat. She is uncertain if it is better with pulling knees up to cheat (would be possible celiac artery compression syndrome). We review that the ultrasound is not completely conclusive for celiac artery syndrome and she has not while about the idea that would require surgery. As always when were uncertain it has not a good idea to undergo surgery that may no t be necessary and may not solve the problem. She also has significant arthritis in the thoracic spine so this could be radicular pain or could even be a form of costochondritis with arthritis in the cartilage of her right ribcage. In order to help her clarify this I am going to order some inflammatory markers to see if there is any reason to refer to rheumatology and will get a dedicated rib x-ray. I will also try her on a course of Celebrex hopefully her insurance will cover cover either this or nabumetone. She continues on her famotidine and her pantoprazole for her gastritis and GERD. She is only taking the Carafate intermittently because she is still have occasional feeling of spasm and ?ball? in the lower end of her esophagus/chest. Her appetite continues to be poor but she could not tolerate Reglan so I have not done a gastric emptying study because we would be able to treat it even was abnormal. She is only eating once a day. Her weight fluctuates a little bit up and down but she has not been losing a tremendous amount of weight. Return office visit in 4 weeks [facility] Medical History Annual physical exam Wheezing Dysphagia Achalasia of esophagus Colon polyp Hiatal hernia PONV (postoperative nausea and vomiting) Colon cancer screening Abdominal bloating Diverticulitis Diverticulitis Tobacco abuse Impaired glucose tolerance Bilateral carpal tunnel syndrome Obesity (BMI 30-39.9) Insomnia GERD (gastroesophageal reflux disease) Hypercholesterolemia Surgical History H/O colonoscopy History of esophagogastroduodenoscopy (EGD) History of rotator cuff surgery H/O left knee surgery History of arthroscopy of left knee History of right knee surgery History of D&C History of shoulder surgery History of carpal tunnel release History of fusion of cervical spine Family History Father Myocardial infarction Skin cancer Colon polyps Mother Myocardial infarction Maternal Grandmother Bone cancer Paternal Aunt Skin cancer Brother Myocardial infarction Substance abuse Sister Myocardial infarction Father Skin cancer Social History Household Members: Spouse Housing: House Do you presently have visiting nurse or other home services: No Alcohol intake: current Alcohol intake frequency: does not drink Comment: abdominal pain reduced per patient Patient Tobacco Use Status: Former Tobacco user Tobacco use type: Cigarette Cigarettes Per Day: 6 Years Smoked: e-Cigarette/Vaping Use: Never Used Second Hand Smoke Exposure: No Advance Directives Date on File: 01/07/21 service: No Current occupational status: employed Cognitive needs: No Hearing needs: No Vision needs: Yes (Glasses) Review of Systems Const Denies fatigue, Denies fever(s), Denies night sweats, Denies poor appetite and Denies weight loss Eyes Details: glasses Reports requires corrective lenses ENT Reports Normal hearing present, Denies dental pain, Denies dysphagia, Denies hearing loss, Denies mouth pain, Reports odynophagia, Denies throat swelling, Denies tongue swelling and Reports other (Dentition adequate) Card Reports chest pain Resp Reports no additional complaints GI Reports abdominal pain, Denies melena, Denies bloating, Denies hematochezia, Denies constipation, Denies GI cramping, Denies dysphagia, Denies excessive flatus, Denies early satiety, Reports heartburn, Denies diarrhea, Denies nausea, Reports odynophagia, Denies vomiting and Denies hematemesis Musc Reports back pain and Reports muscle cramps Skin/Breast Denies pruritus, Denies lesions, Denies rash and Denies jaundice Neuro Reports Normal hearing present and Denies Abnormal speech present Endo Denies fatigue Aller/Immun Denies throat swelling and Denies tongue swelling Physical Exam Vital Signs: Last Vital Signs Pulse 74 11/27/23 11:16 BP 137/78 11/27/23 11:16 BMI result Body Mass Index 28.0 Const General: cooperative, no acute distress, well developed and well groomed Nutritional Appearance: average body habitus and well nourished Orientation/consciousness: oriented to person, oriented to place and oriented to time Limitations: No language barrier HEENT Head: Yes normocephalic and Yes atraumatic Eyes General: appearance normal, both eyes and all related structures Pupils: Equal, round and reactive pupils present Neck Neck: Yes normal visual inspection and Yes no lymphadenopathy Thyroid: Thyroid normal Chest Chest palpation & inspection: normal inspection of the chest and tenderness rib (right low ribcage) Resp Effort & Inspection: normal respiratory effort and able to speak in complete sentences Auscultation: clear to auscultation bilaterally Cardio Rate: regular rate Rhythm: regular rhythm Heart sounds: Normal, physiologic split S2 sound present Peripheral pulses: radial pulses present and posterior tibial pulses present GI Inspection: No distended and No Abdominal panniculus present Palpation (GI): Soft to palpation, nontender, no guarding, not rigid and No hepatosplenomegaly present Percussion: Yes normal to percussion Auscultation: normal bowel sounds Rectal Exam - Female: deferred General: Yes CVA tenderness Back/Spine/Pelvis Back: CVA tenderness Thoracic/Lumbar Spine: kyphosis, paraspinal muscle tenderness bilaterally in the mid thoracic and in the lower thoracic and thoraco-lumbar spasm Skin General skin exam: no rashes or lesions noted, turgor normal, skin not dry, no jaundice, No spider nevi and no striae Rashes: no rashes Nails: normal Neuro General: oriented to person, oriented to place and oriented to time Cranial nerves: Yes Equal, round and reactive pupils present and Yes Normal hearing present Speech: No Abnormal speech present Extrem General: Yes normal to inspection, No clubbing, No cyanosis and No edema Psych Appearance: grossly normal and well kempt Mental Status: mental status grossly normal Speech and movement: Normal speech and movement present Affect: normal affect Attitude: cooperative Thought process: Normal thought process present and not confabulating Thought content: Normal thought content present Insight: Limited insight present (Psych) Judgement: Limited judgement present (Psych) Results Reviewed Results Reviewed: ULTRASOUND [facility] 09/30/23 FINDINGS: ABDOMINAL AORTA: Proximal to SMA: PSV 98 cm/s. Normal waveform. Distal to SMA: PSV 73 cm/s. Normal waveform. CELIAC ARTERY: Supine inspiration: PSV 109 cm/s. Normal waveform. Supine expiration: PSV 247 cm/s. Normal waveform. Erect inspiration: PSV 85 cm/s. Normal waveform. Erect expiration: PSV 73 cm/s. Normal waveform. SUPERIOR MESENTERIC ARTERY: Proximal: PSV 203 cm/s. Normal waveform. Mid: PSV 164 cm/s. Normal waveform. Distal: PSV 103 cm/s. Normal waveform. ROXANNE: PSV 225 cm/s. Normal waveform. SPLENIC ARTERY: PSV 138 cm/s. Normal waveform. HEPATIC ARTERY: PSV 101 cm/s. Normal waveform. The patient was tender over the gallbladder. Therefore the double bottom driver examining the gallbladder. No cholelithiasis or gallbladder wall thickening. US/US SMA IMPRESSION: Elevated velocity in the celiac artery in supine expiration which normalizes with inspiration and erect positioning. This correlates with celiac artery compression. However, on the prior CT from 01/01/2023, there is no evidence of significant compression of the celiac artery. The patient reported tenderness over the gallbladder but no cholelithiasis or gallbladder wall thickening seen. X-RAY OF THORACIC SPINE 09/21/23 FINDINGS: The bones are diffusely demineralized. The patient is kyphotic. There is slight curve of the upper thoracic spine which may be due to patient positioning, muscle spasm, or true mild scoliosis. No intrinsic bony abnormality. There is multilevel degenerative disc disease with anterior marginal osteophytes. The endplates and posterior elements are normal. No fracture or subluxation. The surrounding prevertebral soft tissues are unremarkable. Anterior plate and screws are seen within the lower cervical spine. XR/XR thoracic spine 2V IMPRESSION: No compression fractures or subluxations are identified. Multilevel degenerative disc disease in the thoracic spine. Assessment & Plan Assessment & Plan (1) Abdominal pain: Comment: Midline from the suprapubic area all the way up to the xiphoid Code(s): R10.9 - Unspecified abdominal pain (2) Delayed gastric emptying: Comment: She had a bad reaction to Reglan but she also has severe lower esophageal dysmotility that makes her more prone to GERD. a.eb Code(s): K30 - Functional dyspepsia (3) Dysphagia: Comment: Prior barium swallow showed dysmotility in the lower 3rd of the esophagus but repeat swallowing 2021 did not show any problem with motility. Code(s): R13.10 - Dysphagia, unspecified (4) GERD (gastroesophageal reflux disease): Code(s): K21.9 - Gastro-esophageal reflux disease without esophagitis Qualifiers: Esophagitis presence: without esophagitis Qualified Code(s): K21.9 - Gastro-esophageal reflux disease without esophagitis (5) Right flank pain: Code(s): R10.9 - Unspecified abdominal pain (6) Costochondritis: Code(s): M94.0 - Chondrocostal junction syndrome [Tietze] (7) Gastritis: Code(s): K29.70 - Gastritis, unspecified, without bleeding Plan She started taking calcium with vit D and she feels that it helped her low back. I had ordered a bone density study which did not seem to show any compromise but given she is on PPI and of advancing age it is likely good to get into the habit of calcium replacement therapy. She has a lot of subjective spasms, she was rx'd a muscle relaxer with some relief by another provider (spasm also seen on thoracic spine xray). She had pain with pressure directly on her right ribs - and it is worse when she lays flat. She is uncertain if it is better with pulling knees up to cheat (would be possible celiac artery compression syndrome). We review that the ultrasound is not completely conclusive for celiac artery syndrome and she has not while about the idea that would require surgery. As always when were uncertain it has not a good idea to undergo surgery that may not be necessary and may not solve the problem. She also has significant arthritis in the thoracic spine so this could be radicular pain or could even be a form of costochondritis with arthritis in the cartilage of her right ribcage. In order to help her clarify this I am going to order some inflammatory markers to see if there is any reason to refer to rheumatology and will get a dedicated rib x-ray. I will also try her on a course of Celebrex hopefully her insurance will cover cover either this or nabumetone. She continues on her famotidine and her pantoprazole for her gastritis and GERD. She is only taking the Carafate intermittently because she is still have occasional feeling of spasm and ?ball? in the lower end of her esophagus/chest. Her appetite continues to be poor but she could not tolerate Reglan so I have not done a gastric emptying study because we would be able to treat it even was abnormal. She is only eating once a day. Her weight fluctuates a little bit up and down but she has not been losing a tremendous amount of weight. Return office visit in 4 weeks Orders: Orders BLAKE Reflex Titer and Pattern Today M94.0 - Chondrocostal junction syndrome [Tietze], R10.9 - Unspecified abdominal pain C Reactive Protein Today M94.0 - Chondrocostal junction syndrome [Tietze], R10.9 - Unspecified abdominal pain Cyclic Citrullinated Peptide Today M94.0 - Chondrocostal junction syndrome [Tietze], R10.9 - Unspecified abdominal pain Rheumatoid Factor Today M94.0 - Chondrocostal junction syndrome [Tietze], R10.9 - Unspecified abdominal pain Erythrocyte Sedimentation Rate Today M94.0 - Chondrocostal junction syndrome [Tietze], R10.9 - Unspecified abdominal pain Medications: New celecoxib (Celebrex) 200 mg PO DAILY 30 caps 3RF K29.70 - Gastritis, unspecified, without bleeding, M94.0 - Chondrocostal junction syndrome [Tietze] Refilled pantoprazole 40 mg PO DAILY 90 tabs 1RF K21.9 - Gastro-esophageal reflux disease without esophagitis Coding Level of Care Code Est Pt Level 4 (51981) Diagnoses Abdominal pain R10.9 Delayed gastric emptying K30 Dysphagia R13.10 Gastroesophageal reflux disease without esophagitis K21.9 Esophagitis presence: without esophagitis Right flank pain R10.9 Costochondritis M94.0 Gastritis K29.70
[2023-11-27 11:16] VITALS: BP 137/78; PULSE 74; BMI 28.0
== END 2023-11-27 12:55 | disposition home or self-care (01) ==
PROVIDERS: Visit Provider Nurse Practitioner
DX: R10.9 Unspecified abdominal pain (principal); K30 Functional dyspepsia; R13.10 Dysphagia, unspecified; K21.9 Gastro-esophageal reflux disease without esophagitis; M94.0 Chondrocostal junction syndrome [Tietze]; K29.70 Gastritis, unspecified, without bleeding
CPT/HCPCS: 99214

== ENCOUNTER 2023-11-27 11:03 | Outpatient (REF) | payer OTHER, SELFPAY ==
--- NOTE | ~2023-11-27 | XR_ITS ---
EXAMINATION: XR RIBS, BILATERAL WITH PA CHEST CLINICAL INFORMATION: Costochondral junction (Tietze's) syndrome. COMPARISON: None available. TECHNIQUE: 2 views of the bilateral ribs were obtained, together with a PA view of the chest. FINDINGS: Lungs are clear. No consolidation, pneumothorax, or pleural effusion. The cardiomediastinal silhouette and pulmonary vasculature are normal. Osseous structures are unremarkable. Ribs are intact. No fractures are identified. The sternoclavicular articulations are well-maintained. Lower cervical orthopedic hardware is noted. There is multi-level thoracic and upper lumbar spondylosis. There is are degenerative changes of the shoulders. XR/XR ribs BI min 4V w CXR1V IMPRESSION: Unremarkable radiographic appearance of the bilateral ribs.
[2023-11-27 14:18] LABS: Erythrocyte Sedimentation Rate 8 MM/HR (0-20)
[2023-11-27 14:29] LABS: Rheumatoid Factor < 13.0 IU/mL (<15.0)
[2023-11-27 14:32] LABS: C Reactive Protein 0.83 mg/dL (< or = 0.50)
[2023-12-03 14:39] LABS: Anti Nuclear Antibody Screen NEGATIVE (NEGATIVE)
[2023-12-04 14:59] LABS: Cyclic Citrullinated Peptide <16 UNITS
== END 2023-11-27 11:04 | disposition home or self-care (01) ==
LOC: HO.XRAY 11:03
PROVIDERS: PCP Internal Medicine; Visit Provider Nurse Practitioner
DX: R10.9 Unspecified abdominal pain (principal); K21.9 Gastro-esophageal reflux disease without esophagitis; K30 Functional dyspepsia; M94.0 Chondrocostal junction syndrome [Tietze]; K29.70 Gastritis, unspecified, without bleeding
CPT/HCPCS: 36415; 71111; 85652; 86038; 86140; 86200; 86431; 99212

== ENCOUNTER 2023-12-23 09:01 | Outpatient (AMB) | payer OTHER, SELFPAY ==
[2023-12-23 09:10] VITALS: BP 110/80; PULSE 70; O2SAT 99; BMI 28.2
--- NOTE | 2023-12-23 09:10 | MHC.PC.OV ---
Vital Signs 12/23/23 09:10 Height 5 ft 4 in Weight 164 lb 0.8 oz BMI 28.2 BP 110/80 Blood Pressure Location Lt brachial Position Sitting Pulse 70 Pulse Source Pulse Oximeter Pulse Oximetry (%) 99 Oxygen Delivery Method Room Air Intake Visit Reasons: PE Intake Note: Patient is here today for a physical. Cell Maker Required: No Allergies amoxicillin [Amoxicillin] Allergy (Intermediate, Verified 12/23/23 09:10) Nausea azithromycin [From Zithromax] Allergy (Intermediate, Verified 12/23/23 09:10) Itching environmental allergies Allergy (Intermediate, Verified 12/23/23 09:10) Nasal congestion, watery eyes erythromycin base [Erythromycin Base] Allergy (Intermediate, Verified 12/23/23 09:10) Nausea metoclopramide Allergy (Intermediate, Verified 12/23/23 09:10) swelling hands/feet Sulfa (Sulfonamide Antibiotics) Allergy (Intermediate, Verified 12/23/23 09:10) Nausea trazodone Allergy (Intermediate, Verified 12/23/23 09:10) vivid dreams codeine Allergy (Verified 12/23/23 09:10) Nausea bupropion [From Wellbutrin] Adverse Reaction (Verified 12/23/23 09:10) Headaches Medication List - Last Reconciled 12/23/23 by Roney Merino, atorvastatin 20 mg PO DAILY biotin 1 mg PO DAILY calcium carbonate-vitamin D3 600 mg-10 mcg (400 unit) (Calcium 600 + D(3)) 2 tabs PO DAILY cyclobenzaprine 10 mg PO TID PRN famotidine 40 mg PO BID lorazepam (Ativan) 0.5 mg PO BEDTIME PRN [nasal spray intranasal PRN] omega-3 fatty acids (Fish Oil Concentrate) 1,000 mg PO DAILY pantoprazole 40 mg PO DAILY sertraline 200 mg PO QAM sucralfate (Carafate) 20 mL PO QNOON zolpidem ER (Ambien CR) 6.25 mg PO BEDTIME PRN Tobacco use date assessed: 12/23/23 Dental Screening Dental Screen Date: 12/23/23 Did you have a dental visit in the last 12 months?: No Did you have a dental problem in the last 6 months where you did not have access to dental care?: No HPI PE HPI Details 58-year-old obese female with hypercholesterolemia impaired glucose tolerance, obstructive sleep apnea generalized anxiety disorder last seen in April 2023. Patient is here for physical exam. Review of the notes patient's colonoscopy October 2021 mammogram reminder. Bone density is up-to-date. Patient has followed up with Gastroenterology abdominal bloating. watery stools PFSH Medical History Annual physical exam Wheezing Dysphagia Achalasia of esophagus Colon polyp Hiatal hernia PONV (postoperative nausea and vomiting) Colon cancer screening Abdominal bloating Diverticulitis Diverticulitis Tobacco abuse Impaired glucose tolerance Bilateral carpal tunnel syndrome Obesity (BMI 30-39.9) Insomnia GERD (gastroesophageal reflux disease) Hypercholesterolemia Surgical History H/O colonoscopy History of esophagogastroduodenoscopy (EGD) History of rotator cuff surgery H/O left knee surgery History of arthroscopy of left knee History of right knee surgery History of D&C History of shoulder surgery History of carpal tunnel release History of fusion of cervical spine Family History (Updated 12/23/23 @ 10:02 by Roney Merino MD) Father Myocardial infarction Skin cancer Colon polyps Mother Myocardial infarction Maternal Grandmother Bone cancer Paternal Aunt Skin cancer Lupus Brother Myocardial infarction Substance abuse Sister Myocardial infarction Father Skin cancer Paternal Grandmother Lupus Social History (Updated 12/23/23 @ 10:03 by Roney Merino MD) Household Members: Spouse Housing: House Do you presently have visiting nurse or other home services: No Alcohol intake: current Alcohol intake frequency: does not drink Comment: QD supper time 1-2 glasses Patient Tobacco Use Status: Former Tobacco user Tobacco use type: Cigarette Cigarettes Per Day: 6 Years Smoked: e-Cigarette/Vaping Use: Never Used Second Hand Smoke Exposure: No Advance Directives Date on File: 01/07/21 service: No Current occupational status: employed Cognitive needs: No Hearing needs: No Vision needs: Yes (Glasses) Questionnaire PHQ-9 Over the last 2 weeks, how often have you been bothered by any of the following problems? 1. Little interest or pleasure in doing things: not at all 2. Feeling down, depressed, or hopeless: not at all 3. Trouble falling or staying asleep, or sleeping too much: not at all 4. Feeling tired or having little energy: not at all 5. Poor appetite or overeating: not at all 6. Feeling bad about yourself - or that you are a failure or have let yourself or your family down: not at all 7. Trouble concentrating on things, such as reading the newspaper or watching television: not at all 8. Moving or speaking so slowly that other people could have noticed. Or the opposite - being so fidgety or restless that you have been moving around a lot more than usual: not at all 9. Thoughts that you would be better off or of hurting yourself in some way: not at all Total score: 0 Depression Screening Interpretation: Positive Depression Screening Follow-up: Existing condition and In treatment Depression Screening Done: Yes Source: Developed by Drs. Sunny Thurston, Marlene Grigsby, Salomon Soares and colleagues, with an educational rajesh from [employer]. Thrive Questionnaire Date Thrive assessed: 12/23/23 I am a: Patient What is your living situation today?: I have a steady place to live Within the past 12 months, did the food you bought not last and you didn't have the money to get more?: Never true Within the past 12 months, did you worry whether your food would run out before you got money to buy more?: Never true Do you have trouble paying for medicines?: No Do you have trouble getting transportation to medical appointments?: No Do you have trouble paying your heating and electricity bill?: No Do you have trouble taking care of your child, family member or friend?: No Do you have trouble with day-to-day activities such as bathing, preparing meals, shopping, managing finances, etc.?: No Are you currently unemployed and looking for a job?: No Are you interested in more education?: No Please select the resources that you would like help with: None THRIVE Score: 0 AUDIT C Alcohol Use Questionnaire (AUDIT-C) 1. How often do you have a drink containing alcohol?: Never 3. How often do you have six or more drinks on one occasion?: Never Total Score: 0 VALENTIN-7 AMB Questionnaire VALENTIN-7 Date VALENTIN - 7 assessed: 12/23/23 Feeling nervous, anxious, or on edge: 0 = Not at all Not being able to stop or control worryin = Not at all Worrying too much about different things: 0 = Not at all Trouble relaxin = Not at all Being so restless that it is hard to sit still: 0 = Not at all Becoming easily annoyed or irritable: 0 = Not at all Feeling afraid as if something awful might happen: 0 = Not at all Total VALENTIN-7 score (0-4 normal; 5-9 mild; 10-14 moderate; 15-21 severe): 0 Source: Developed by Drs. Sunny Thurston, Marlene Grigsby, Salomon Soares and colleagues, with an educational rajesh from [employer]. Review of Systems Const Denies poor appetite and Denies weakness Eyes Denies no additional complaints ENT Reports Normal hearing present, Denies dizziness, Denies nasal congestion, Denies tinnitus and Denies sore throat Card Denies chest pain, Denies syncope, Denies rapid heart rate and Denies dyspnea Resp Denies cough and Denies dyspnea GI Denies change in stool character, Reports constipation, Denies diarrhea, Denies nausea and Denies vomiting Denies urinary frequency, Denies difficulty voiding and Denies dysuria Neuro Reports Normal hearing present, Denies confusion, Denies dizziness, Denies syncope and Denies weakness Psych Denies confusion Physical exam (Primary Care) Vital Signs: Last Vital Signs Pulse 70 12/23/23 09:10 BP 110/80 12/23/23 09:10 Pulse Ox 99 12/23/23 09:10 Oxygen Delivery Method Room Air 12/23/23 09:10 BMI result Body Mass Index 28.2 Tobacco/Smoking Status: Tobacco use Status Tobacco use date assessed 12/23/23 12/23/23 09:12 Patient Tobacco Use Status Former Tobacco user 12/23/23 09:12 Tobacco use type Cigarette 12/23/23 09:12 e-Cigarette/Vaping Use Never Used 12/23/23 09:12 PHQ-9: PHQ-9 Score PHQ-9: Total score 0 12/23/23 09:38 Depression Screening Interpretation: Positive Depression Screening Follow-up: Existing condition and In treatment Thrive Assessment: Date of Thrive Assessment Date Thrive assessed 12/23/23 12/23/23 09:12 Const General: No confusion Orientation/consciousness: No confusion HENMT Head: Yes normocephalic Ears: external ears normal and TM's normal bilaterally Face and sinus: Yes normal facial exam Mouth: moist mucous membranes Throat: Yes tonsils normal Eyes Conjunctivae: conjunctivae normal Pupils: Equal, round and reactive pupils present and Pupil accommodation reflex normal Direct Ophthalmoscopy: normal light reflex Neck Neck: No lymphadenopathy Thyroid: Thyroid normal Chest Chest palpation & inspection: normal inspection of the chest Resp Effort & Inspection: normal respiratory effort and no audible wheezes Auscultation: clear to auscultation bilaterally, no crackles, no wheezes and lung sounds not diminished Cardio Rate: regular rate Rhythm: regular rhythm Peripheral pulses: radial pulses present and dorsalis pedis present GI Palpation (GI): no masses Auscultation: normal bowel sounds and normoactive bowel sounds Rectal Exam - Female: deferred Skin General skin exam: no rashes or lesions noted Rashes: no rashes Neuro General: No confusion Cranial nerves: Yes Equal, round and reactive pupils present and Yes Normal hearing present Cognition (Neuro): normal cognition Gait exam (Neuro): Normal gait present Motor exam (neuro): 5/5 motor strength present throughout Deep tendon reflexes (DTR's): Right brachioradialis reflex intensity grade: 2+, Left brachioradialis reflex intensity grade: 2+, Right patellar reflex intensity grade: 2+ and Left patellar reflex intensity grade: 2+ Extrem General: No edema Office Procedures Flu Questionnaire Does the patient have a severe egg allergy?: No Does the patient have severe life threatening allergies?: No Does the patient have a fever or illness today?: No Has the patient ever had Guillain-[place] Syndrome?: No Has the patient ever had any past reaction to a flu shot?: No Immunizations flu vacc [id number] 6mos up(PF) 60 mcg(15 mcgx4)/0.5 mL IM syringe Performing Provider: Roney Merino MD [facility] Administered by: ELENA Valenzuela on 12/23/23 09:38 Dose Route Admin Location Dispensed Lot Number Expiration Date NDC Senior Net Developer 0.5 mL IM Left Deltoid 0.5 mL [id number] 05/15/24 [id number] [employer] VIS Given Date VIS Provided VIS Publication Date 12/23/23 Single Vaccine 21 Eligibility Eligibility Date Funding Source Not [facility] Eligible 12/23/23 Private Assessment and Plan Assessment & Plan (1) Annual physical exam: Code(s): Z00.00 - Encounter for general adult medical examination without abnormal findings (2) Hypercholesterolemia: Code(s): E78.00 - Pure hypercholesterolemia, unspecified Plan: Avoid fried foods, chicken skin, eggs, butter margarine, pastries and meat. Be it pork or beef they have a lot of cholesterol LDL goal of less than 130 and triglyceride of less than 150 patient on atorvastatin 20 mg once a day (3) GERD (gastroesophageal reflux disease): Code(s): K21.9 - Gastro-esophageal reflux disease without esophagitis Qualifiers: Esophagitis presence: without esophagitis Qualified Code(s): K21.9 - Gastro-esophageal reflux disease without esophagitis Plan: Avoid the foods that causes that usually spicy foods, tomato products, juices, coffee, soda and foods that your sensitive to. After eating do not lie down, allow 3-4 hours before in lie down. And keep the head of bed above 30 degrees to avoid the acid from going up. On famotidine 40 mg twice a day and pantoprazole 40 mg once a day (4) Obesity (BMI 30-39.9): Code(s): E66.9 - Obesity, unspecified Plan: Diet and exercise (5) Impaired glucose tolerance: Code(s): R73.02 - Impaired glucose tolerance (oral) Plan: Decrease the amount of carbohydrate intake, pasta, bread, rice and potatoes are all sugar and that is aside from all the sweet stuff, remember that fruits are good but they are Sweet also. (6) Generalized anxiety disorder: Comment: Patient has counseling 2 times a week(September 2021) [facility] (05/2022) Code(s): F41.1 - Generalized anxiety disorder Plan: Continue with counseling and therapy (7) Breast cancer screening by mammogram: Code(s): Z12.31 - Encounter for screening mammogram for malignant neoplasm of breast Plan: Patient is reminded about the mammogram (8) Obstructive sleep apnea (adult) (pediatric): Comment: October 2022 [facility] BiPAP Code(s): G47.33 - Obstructive sleep apnea (adult) (pediatric) Plan: cannot tolerate CPAP (9) Costochondritis: Code(s): M94.0 - Chondrocostal junction syndrome [Tietze] Plan: reassurance (10) Low back pain: Code(s): M54.5 - Low back pain Plan: xrfay ff up to do Orders: Orders Influenza [id number] Immunization Today Z23 - Encounter for immunization Complete Blood Count Auto Diff Today E78.00 - Pure hypercholesterolemia, unspecified Free T4 (Free Thyroxine) Today E78.00 - Pure hypercholesterolemia, unspecified Thyroid Stimulating Hormone Today E78.00 - Pure hypercholesterolemia, unspecified Vitamin B12 and Folate Today E78.00 - Pure hypercholesterolemia, unspecified XR lumbar spine 2-3V Today M54.5 - Low back pain Comprehensive Met. Panel Today E78.00 - Pure hypercholesterolemia, unspecified Vitamin D 25-OH Total Today E78.00 - Pure hypercholesterolemia, unspecified Lipid Panel Today E78.00 - Pure hypercholesterolemia, unspecified Hemoglobin A1c Today E78.00 - Pure hypercholesterolemia, unspecified XR sacroiliac joint 1-2V Today M54.5 - Low back pain Coding Level of Care Code Est Pt Prev Care [id number]([id number]) Diagnoses Annual physical exam Z00.00 Hypercholesterolemia E78.00 Gastroesophageal reflux disease without esophagitis K21.9 Esophagitis presence: without esophagitis Obesity (BMI 30-39.9) E66.9 Impaired glucose tolerance R73.02 Generalized anxiety disorder F41.1 Breast cancer screening by mammogram Z12.31 Obstructive sleep apnea (adult) (pediatric) G47.33 Costochondritis M94.0 Low back pain M54.5
== END 2023-12-23 10:25 | disposition home or self-care (01) ==
PROVIDERS: PCP Internal Medicine; Visit Provider Internal Medicine
DX: Z00.00 Encounter for general adult medical examination without abnormal findings (principal); E66.9 Obesity, unspecified; Z68.28 Body mass index [BMI] 28.0-28.9, adult; Z23 Encounter for immunization; E78.00 Pure hypercholesterolemia, unspecified; K21.9 Gastro-esophageal reflux disease without esophagitis; R73.02 Impaired glucose tolerance (oral); F41.1 Generalized anxiety disorder; Z12.31 Encounter for screening mammogram for malignant neoplasm of breast; G47.33 Obstructive sleep apnea (adult) (pediatric); M94.0 Chondrocostal junction syndrome [Tietze]; M54.50 Low back pain, unspecified
CPT/HCPCS: 90471; 90686; 99396

== ENCOUNTER 2023-12-25 08:13 | Outpatient (REF) | payer OTHER, SELFPAY ==
--- NOTE | ~2023-12-25 | XR_ITS ---
EXAMINATION: XR LUMBAR SPINE, 3 VIEWS XR SACROILIAC JOINTS, 3 VIEWS CLINICAL INFORMATION: Low back pain COMPARISON: Lumbar spine radiograph from 10/21/2013 TECHNIQUE: 3 views of the lumbar spine 3 views of the sacroiliac joints FINDINGS: No acute visible fracture or dislocation. Bilateral sacroiliac joints are patent. Suggestion of L5-S1 neuroforaminal narrowing. Multilevel degenerative changes with disc space narrowing, osteophyte formation, facet arthropathy. Vertebral body heights and disc spaces are maintained. Posterior elements are intact. Paraspinal soft tissues are unremarkable. Visualized bowel gas is unremarkable. Pelvic phleboliths are noted. XR/XR lumbar spine 2-3V IMPRESSION: 1. No acute visible fracture or dislocation. 2. Bilateral sacroiliac joints are patent. 3. Suggestion of L5-S1 neuroforaminal narrowing. 4. Multilevel degenerative changes.
--- NOTE | ~2023-12-25 | XR_ITS ---
EXAMINATION: XR LUMBAR SPINE, 3 VIEWS XR SACROILIAC JOINTS, 3 VIEWS CLINICAL INFORMATION: Low back pain COMPARISON: Lumbar spine radiograph from 10/21/2013 TECHNIQUE: 3 views of the lumbar spine 3 views of the sacroiliac joints FINDINGS: No acute visible fracture or dislocation. Bilateral sacroiliac joints are patent. Suggestion of L5-S1 neuroforaminal narrowing. Multilevel degenerative changes with disc space narrowing, osteophyte formation, facet arthropathy. Vertebral body heights and disc spaces are maintained. Posterior elements are intact. Paraspinal soft tissues are unremarkable. Visualized bowel gas is unremarkable. Pelvic phleboliths are noted. XR/XR sacroiliac joint min 3V IMPRESSION: 1. No acute visible fracture or dislocation. 2. Bilateral sacroiliac joints are patent. 3. Suggestion of L5-S1 neuroforaminal narrowing. 4. Multilevel degenerative changes.
== END 2023-12-25 08:14 | disposition home or self-care (01) ==
LOC: HO.XRAY 08:13
PROVIDERS: PCP Internal Medicine; Visit Provider Nurse Practitioner
DX: M54.50 Low back pain, unspecified (principal); M25.551 Pain in right hip; M25.552 Pain in left hip
CPT/HCPCS: 72100; 72202; 99212

== ENCOUNTER 2023-12-25 08:13 | Outpatient (AMB) | payer OTHER, SELFPAY ==
[2023-12-25 08:38] VITALS: BP 130/79; PULSE 83; BMI 28.2
--- NOTE | 2023-12-25 08:38 | A.OFFVIS_ITS ---
Intake Vital Signs 12/25/23 08:38 Height 5 ft 4 in Weight 164 lb 0.383 oz BMI 28.2 BP 130/79 Blood Pressure Location Rt brachial Position Sitting Pulse 83 Intake Visit Reasons: 4 weeks follow up Intake Note: Patient presents to in office visit today in follow up of labs. CC: Patient states she continues to have RUQ abdominal pain with radiation to her back and upper abdominal pain when laying down. She states she is also having a lot of headaches, abdominal bloating, and nausea sometimes. [employer] Required: No Accompanied by: Self / Same As Patient Allergies amoxicillin [Amoxicillin] Allergy (Intermediate, Verified 12/25/23 08:41) Nausea azithromycin [From Zithromax] Allergy (Intermediate, Verified 12/25/23 08:41) Itching environmental allergies Allergy (Intermediate, Verified 12/25/23 08:41) Nasal congestion, watery eyes erythromycin base [Erythromycin Base] Allergy (Intermediate, Verified 12/25/23 08:41) Nausea metoclopramide Allergy (Intermediate, Verified 12/25/23 08:41) swelling hands/feet Sulfa (Sulfonamide Antibiotics) Allergy (Intermediate, Verified 12/25/23 08:41) Nausea trazodone Allergy (Intermediate, Verified 12/25/23 08:41) vivid dreams codeine Allergy (Verified 12/25/23 08:41) Nausea bupropion [From Wellbutrin] Adverse Reaction (Verified 12/25/23 08:41) Headaches HPI 4 weeks follow up HPI Details Assessment & Plan (1) Abdominal pain: Comment: Midline from the suprapubic area all the way up to the xiphoid Code(s): R10.9 - Unspecified abdominal pain (2) Delayed gastric emptying: Comment: She had a bad reaction to Reglan but she also has severe lower esophageal dysmotility that makes her more prone to GERD. a.eb Code(s): K30 - Functional dyspepsia (3) Dysphagia: Comment: Prior barium swallow showed dysmotility in the lower 3rd of the esophagus but repeat swallowing 2021 did not show any problem with motility. Code(s): R13.10 - Dysphagia, unspecified (4) GERD (gastroesophageal reflux diseas e): Code(s): K21.9 - Gastro-esophageal reflux disease without esophagitis Qualifiers: Esophagitis presence: without esophagitis Qualified Code(s): K21.9 - Gastro-esophageal reflux disease without esophagitis (5) Right flank pain: Code(s): R10.9 - Unspecified abdominal pain (6) Costochondritis: Code(s): M94.0 - Chondrocostal junction syndrome [Tietze] (7) Gastritis: Code(s): K29.70 - Gastritis, unspecified, without bleeding Plan She started taking calcium with vit D and she feels that it helped her low back. I had ordered a bone density study which did not seem to show any compromise but given she is on PPI and of advancing age it is likely good to get into the habit of calcium replacement therapy. She has a lot of subjective spasms, she was rx'd a muscle relaxer with some relief by another provider (spasm also seen on thoracic spine xray). She had pain with pressure directly on her right ribs - and it is worse when she lays flat. She is uncertain if it is better with pulling knees up to cheat (would be possible celiac artery compression syndrome). We review that the ultrasound is not completely conclusive for celiac artery syndrome and she has not while about the idea that would require surgery. As always when were uncertain it has not a good idea to undergo surgery that may not be necessary and may not solve the problem. She also has significant arthritis in the thoracic spine so this could be radicular pain or could even be a form of costochondritis with arthritis in the cartilage of her right ribcage. In order to help her clarify this I am going to order some inflammatory markers to see if there is any reason to refer to rheumatology and will get a dedicated rib x-ray. I will also try her on a course of Celebrex hopefully her insurance will cover cover either this or nabumetone. She continues on her famotidine and her pantoprazole for her gastritis and GERD. She is only taking the Carafate intermittently because she is still have occasional feeling of spasm and ?ball? in the lower end of her esophagus/chest. Her appetite continues to be poor but she could not tolerate Reglan so I have not done a gastric emptying study because we would be able to treat it even was abnormal. She is only eating once a day. Her weight fluctuates a little bit up and down but she has not been losing a tremendous amount of weight. Return office visit in 4 weeks Orders: Orders BLAKE Reflex Titer a nd Pattern Today M94.0 - Chondrocos timothy junction syndr ome [Tietze], R10. 9 - Unspecified ab dominal pain C Reactive Protein Today M94.0 - Chondrocos timothy junction syndr ome [Tietze], R10. 9 - Unspecified ab dominal pain Cyclic Citrullinat ed Peptide Today M94.0 - Chondrocos timothy junction syndr ome [Tietze], R10. 9 - Unspecified ab dominal pain Rheumatoid Factor Today M94.0 - Chondrocos timothy junction syndr ome [Tietze], R10. 9 - Unspecified ab dominal pain Erythrocyte Sedime ntation Rate Today M94.0 - Chondrocos timothy junction syndr ome [Tietze], R10. 9 - Unspecified ab dominal pain Medications: New celecoxib (Celebre x) 200 mg PO DAILY 3 0 caps 3RF K29.70 - Gastritis , unspecified, wit hout bleeding, M94 .0 - Chondrocostal junction syndrome [Tietze] Refilled pantoprazole 40 mg PO DAILY 90 tabs 1RF K21.9 - Gastro-eso phageal reflux dis ease without esoph agitis LABS: Laboratory Tests 11/27/23 12:16 ESR 8 C-Reactive Protein 0.83 H Rheumatoid Factor < 13.0 Cycl Citrul Peptid e IgG <16 BLAKE Screen NEGATIVE TODAYS VISIT She continues to have right sided pain that warps around to her back. She is having an XT of the lumbar spine today, but also has pain at the right buttock at SI joint. Will get SR SI joint, and try to get a MRI of the TS since her past XR shows significant DJD with osteophytes (to see if ther continued pain is radicular. She has soft to watery stools, started back on carafate. Was on bentyl in past, unsure why is was stopped will give another trial. She is having a stomach ache after eating and when lying down she has upper abd discomfort and bloati ng. She has a hx of gastroparesis, but can not tolerate reglan. She continues on her pantoprazole once a day as well. She has an elevated CRP, but no other inflammatory factors on a general screen. ROV 6 mos and after MRI or T spine. [facility] Medical History Annual physical exam Wheezing Dysphagia Achalasia of esophagus Colon polyp Hiatal hernia PONV (postoperative nausea and vomiting) Colon cancer screening Abdominal bloating Diverticulitis Diverticulitis Tobacco abuse Impaired glucose tolerance Bilateral carpal tunnel syndrome Obesity (BMI 30-39.9) Insomnia GERD (gastroesophageal reflux disease) Hypercholesterolemia Surgical History H/O colonoscopy History of esophagogastroduodenoscopy (EGD) History of rotator cuff surgery H/O left knee surgery History of arthroscopy of left knee History of right knee surgery History of D&C History of shoulder surgery History of carpal tunnel release History of fusion of cervical spine Family History (Updated 12/23/23 @ 10:02 by Roney Merino MD) Father Myocardial infarction Skin cancer Colon polyps Mother Myocardial infarction Maternal Grandmother Bone cancer Paternal Aunt Skin cancer Lupus Brother Myocardial infarction Substance abuse Sister Myocardial infarction Father Skin cancer Paternal Grandmother Lupus Social History (Updated 12/23/23 @ 10:03 by Roney Merino MD) Household Members: Spouse Housing: House Do you presently have visiting nurse or other home services: No Alcohol intake: current Alcohol intake frequency: does not drink Comment: QD supper time 1-2 glasses Patient Tobacco Use Status: Former Tobacco user Tobacco use type: Cigarette Cigarettes Per Day: 6 Years Smoked: e-Cigarette/Vaping Use: Never Used Second Hand Smoke Exposure: No Advance Directives Date on File: 01/07/21 service: No Current occupational status: employed Cognitive needs: No Hearing needs: No Vision needs: Yes (Glasses) Review of Systems Const Denies fatigue, Denies fever(s), Reports headache(s), Denies night sweats, Denies poor appetite and Denies weight loss Eyes Reports dry eyes ENT Reports Normal hearing present, Denies dental pain, Denies dysphagia, Reports headache(s), Denies hearing loss, Denies mouth pain, Reports neck pain, Denies odynophagia, Denies throat swelling, Denies tongue swelling and Reports other (Dentition adequate) Card Reports no additional complaints Resp Reports no additional complaints GI Details: Reports abdominal pain, Denies melena, Reports bloating, Denies hematochezia, Denies constipation, Reports GI cramping, Denies dysphagia, Denies excessive flatus, Denies early satiety, Reports dyspepsia, Reports heartburn, Reports diarrhea, Denies nausea, Denies odynophagia, Denies vomiting and Denies hematemesis Musc Reports back pain, Reports neck pain and Reports tingling (hgands/arms) Skin/Breast Denies pruritus, Denies lesions, Denies rash and Denies jaundice Neuro Reports Normal hearing present, Denies Abnormal speech present, Reports heada ruth ann(s) and Reports tingling (hgands/arms) Endo Denies fatigue Aller/Immun Denies throat swelling and Denies tongue swelling Physical Exam Vital Signs: Last Vital Signs Pulse 83 12/25/23 08:38 BP 130/79 12/25/23 08:38 BMI result Body Mass Index 28.2 Const General: cooperative, no acute distress, well developed and well groomed Nutritional Appearance: well nourished and overweight Orientation/consciousness: oriented to person, oriented to place and oriented to time Limitations: No language barrier and wheelchair HEENT Head: Yes normocephalic and Yes atraumatic Eyes General: appearance normal, both eyes and all related structures Pupils: Equal, round and reactive pupils present Neck Neck: Yes normal visual inspection and Yes no lymphadenopathy Thyroid: Thyroid normal Resp Effort & Inspection: normal respiratory effort and able to speak in complete sentences Auscultation: clear to auscultation bilaterally Cardio Rate: regular rate Rhythm: regular rhythm Heart sounds: Normal, physiologic split S2 sound present Peripheral pulses: radial pulses present and posterior tibial pulses present GI Inspection: No distended, Yes Abdominal panniculus present and Yes obesity Palpation (GI): Soft to palpation, nontender, no guarding, not rigid and No hepatosplenomegaly present Percussion: Yes normal to percussion Auscultation: normal bowel sounds Rectal Exam - Female: deferred General: Yes CVA tenderness Back/Spine/Pelvis Back: CVA tenderness Cervical Spine: loss of normal cervical lordosis Thoracic/Lumbar Spine: straight leg raise negative bilaterally and paraspinal muscle tenderness Sacroiliac joints: bilaterally (R>L) tender to palpation Skin General skin exam: no rashes or lesions noted, turgor normal, skin not dry, no jaundice, No spider nevi and no striae Rashes: no rashes Nails: normal Neuro General: oriented to person, oriented to place and oriented to time Cranial nerves: Yes Equal, round and reactive pupils present and Yes Normal hearing present Speech: No Abnormal speech present Extrem General: Yes normal to inspection, No clubbing, No cyanosis and No edema Psych Appearance: grossly normal and well kempt Mental Status: mental status grossly normal Speech and movement: Normal speech and movement present Affect: normal affect Attitude: cooperative Thought process: Normal thought process present and not confabulating Thought content: Normal thought content present Insight: Fair insight present (Psych) and Limited insight present (Psych) Judgement: Fair judgement present (Psych) and Limited judgement present (Psych) Assessment & Plan Assessment & Plan (1) Gastritis: Code(s): K29.70 - Gastritis, unspecified, without bleeding (2) Delayed gastric emptying: Comment: She had a bad reaction to Reglan but she also has severe lower esophageal dysmotility that makes her more prone to GERD. a.eb Code(s): K30 - Functional dyspepsia (3) Dysphagia: Comment: Prior barium swallow showed dysmotility in the lower 3rd of the esophagus but repeat swallowing 2021 did not show any problem with motility. 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 She is having an XT of the lumbar spine today, but also has pain at the right buttock at SI joint. Will get SR SI joint, and try to get a MRI of the TS since her past XR shows significant DJD with osteophytes (to see if ther continued pain is radicular. She has soft to watery stools, started back on carafate. Was on bentyl in past, unsure why is was stopped will give another trial. She is having a stomach ache after eating and when lying down she has upper abd discomfort and bloating. She has a hx of gastroparesis, but can not tolerate reglan. She continues on her pantoprazole once a day as well. She has an elevated CRP, but no other inflammatory factors on a general screen. ROV 6 mos and after MRI or T spine. Orders: Orders MR thoracic spine wo con Today M47.24 - Other spondylosis with radiculopathy, thoracic region, R10.9 - Unspecified abdominal pain XR sacroiliac joint min 3V Today M25.559 - Pain in unspecified hip Medications: New dicyclomine 20 mg PO QID 30 days PRN 120 tabs 1RF abdominal pain Refilled sucralfate (Carafate) 20 mL PO QNOON 1,000 mL 2RF R19.7 - Diarrhea, unspecified famotidine 40 mg PO BID 180 tabs 1RF pantoprazole 40 mg PO DAILY 90 tabs 1RF K21.9 - Gastro-esophageal reflux disease without esophagitis Coding Level of Care Code Est Pt Level 4 (57100) Diagnoses Gastritis K29.70 Delayed gastric emptying K30 Dysphagia R13.10 Hypercholesterolemia E78.00 Right flank pain R10.9 Thoracic radiculopathy due to degenerative joint disease of spine M47.24 Hip pain M25.559 Time Spent (min) 41
== END 2023-12-25 09:33 | disposition home or self-care (01) ==
PROVIDERS: Visit Provider Nurse Practitioner
DX: K29.70 Gastritis, unspecified, without bleeding (principal); K30 Functional dyspepsia; R13.10 Dysphagia, unspecified; E78.00 Pure hypercholesterolemia, unspecified; R10.9 Unspecified abdominal pain; M47.24 Other spondylosis with radiculopathy, thoracic region; M25.559 Pain in unspecified hip
CPT/HCPCS: 99214

== ENCOUNTER 2024-06-16 13:38 | Outpatient (AMB) | payer OTHER, SELFPAY ==
[2024-06-16 13:48] VITALS: BP 150/91; BMI 27.8
--- NOTE | 2024-06-16 13:48 | A.OFFVIS_ITS ---
Vital Signs 06/16/24 13:48 Height 5 ft 4 in Weight 161 lb 13.109 oz BMI 27.8 BP 150/91 H Blood Pressure Location Rt brachial Position Sitting Intake Visit Reasons: 6 months follow up Intake Note: Patient presents to in office visit today in follow up of XR and MRI. CC: Patient states that she has a lot of constant pain on her whole left back side, throbbing pain, pain scale 7/10. Pain worst when laying down on that side, and it hurts when she takes a deep breath and sometimes radiates to her left shoulder. She also c/o stomach pain, pain under left ribs area, and occasional nausea. Senior Medical Billing Specialist Required: No Accompanied by: Self / Same As Patient Allergies amoxicillin [Amoxicillin] Allergy (Intermediate, Verified 06/16/24 13:51) Nausea azithromycin [From Zithromax] Allergy (Intermediate, Verified 06/16/24 13:51) Itching environmental allergies Allergy (Intermediate, Verified 06/16/24 13:51) Nasal congestion, watery eyes erythromycin base [Erythromycin Base] Allergy (Intermediate, Verified 06/16/24 13:51) Nausea metoclopramide Allergy (Intermediate, Verified 06/16/24 13:51) swelling hands/feet Sulfa (Sulfonamide Antibiotics) Allergy (Intermediate, Verified 06/16/24 13:51) Nausea trazodone Allergy (Intermediate, Verified 06/16/24 13:51) vivid dreams codeine Allergy (Verified 06/16/24 13:51) Nausea bupropion [From Wellbutrin] Adverse Reaction (Verified 06/16/24 13:51) Headaches HPI HPI 6 months follow up: Details: Assessment & Plan (1) Gastritis: Code(s): K29.70 - Gastritis, unspecified, without bleeding (2) Delayed gastric emptying: Comment: She had a bad reaction to Reglan but she also has severe lower esophageal dysmotility that makes her more prone to GERD. a.eb Code(s): K30 - Functional dyspepsia (3) Dysphagia: Comment: Prior barium swallow showed dysmotility in the lower 3rd of the esophagus but repeat swallowing 2021 did not show any problem with motility. 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 She is having an XT of the lumbar spine today, but also has pain at the right buttock at SI joint. Will get SR SI joint, and try to get a MRI of the TS since her past XR shows significant DJD with osteophytes (to see if ther continued pain is radicular. She has soft to watery stools, started back on carafate. Was on bentyl in past, unsure why is was stopped will give another trial. She is having a stomach ache after eating and when lying down she has upper abd discomfort and bloating. She has a hx of gastroparesis, but can not tolerate reglan. She continues on her pantoprazole once a day as well. She has an elevated CRP, but no other inflammatory factors on a general screen. ROV 6 mos and after MRI or T spine. Orders: Orders MR thoracic spine wo con Today M47.24 - Other spondylosis with radiculopathy, thoracic region, R10.9 - Unspecified abdominal pain XR sacroiliac joint min 3V Today M25.559 - Pain in unspecified hip Medications: New dicyclomine 20 mg PO QID 30 days PRN 120 tabs 1RF abdominal pain Refilled sucralfate (Carafate) 20 mL PO QNOON 1,000 mL 2RF R19.7 - Diarrhea, unspecified famotidine 40 mg PO BID 180 tabs 1RF pantoprazole 40 mg PO DAILY 90 tabs 1RF K21.9 - Gastro-esophageal reflux disease without esophagitis X-RAY OF THE SI JOINT 12/28/23 FINDINGS: No acute visible fracture or dislocation. Bilateral sacroiliac joints are patent. Suggestion of L5-S1 neuroforaminal narrowing. Multilevel degenerative changes with disc space narrowing, osteophyte formation, facet arthropathy. Vertebral body heights and disc spaces are maintained. Posterior elements are intact. Paraspinal soft tissues are unremarkable. Visualized bowel gas is unremarkable. Pelvic phleboliths are noted. XR/XR sacroiliac joint min 3V IMPRESSION: 1. No acute visible fracture or dislocation. 2. Bilateral sacroiliac joints are patent. 3. Suggestion of L5-S1 neuroforaminal narrowing. 4. Multilevel degenerative changes. MR OF THE THORACIC SPINE cancelled as can't get PA CORRESPONDENCE On 05/17/24 @ 14:56 Esmer Foster Wrote To Esmer Foster (2) I don't know what this pain is, we have not found a GI cause in the past. I recommend that she call her PCP or present to and urgent care or ER for evaluation. On 05/16/24 @ 15:39 Prasanna Marsh Wrote To Esmer Foster Patient wanted to let Esmer Foster know that her Rt side kidney area still painful and that now her whole Rt side up to the shoulder blade and right back is painful. Please advise. On 01/12/24 @ 08:32 Esmer Foster Wrote To Esmer Foster (2) No, its okay I'll just tell her we could not get this and she needs to see ortho. On 01/11/24 @ 16:10 Catrachita Ledezma Wrote To Esmer Foster Let me know if you would like to set up a peer to peer. On 01/11/24 @ 12:11 Catrachita Ledezma Wrote To Esmer Foster Insurance denied her MRI. On 10/01/23 @ 07:53 Esmer Foster Wrote To Florinda Alston He did comment on the gallbladder that there were no gallstones on my report. The did show possible compression of the celiac artery which can cause pain but this is a very rare condition and would need additional testing to tease out if that is the problem. I suggest we get on HIDA scan to see if the gallbladder is injecting properly, and if you want we can progress with a CT angiogram and a referral to pain management for possible ganglion nerve block to see if the celiac artery is part of the problem. I am sorry that I do not have an i mmediate solution. Please let me know if you want me to order these tests. Your cases really quite puzzling I know that is not comforting to you when your in pain. On 09/30/23 @ 13:35 Florinda Alston (Regarding Self / Same As Patient) Wrote To Esmer Foster I read your msg. Is there anyway to contact Dr that reads the ultrasound as the ultrasound nurse also did scan on gallbladder due to the pain. I asked her about the pain when scanning and she advised me to let you know. So, the report should also have the results on my gallbladder that even though the order didn't have that area to scan. She did scan due to the severe sharp pains I was getting under right rib and had to stop scan due to sharp pain under rib and give me moment to recover before proceeding. I went to ER months ago and scan showed nothing per report and pain was still there but pain has progressed further and pain is excruciating and and was painful extremely when scan was pressed under right rib cage. I can't sit there waiting over 7hours and then get sent home after blood work if it might show an infection. I can't sit so uncomfortable in serious pain for them to think I have a belly ache again. It was very painful too when scan tool was pressed straight line down from breastbone to lower left of stomach. Only sharp pains under ribcage. So, if you could try to get it read and if it does show gallbladder I will go to ER! Thankm you If there is a Stat to the Dr that reads the xray to tell what is going on. On 09/30/23 @ 09:16 Esmer Foster Wrote To Florinda Alston Thank you Florinda Rice, It can take up to a week to get the results but this sounds like what we call a positive Fulton sign, for gallbladder....but this is not 100% conclusive since there are so many organs in that area. If this does not improve consider going to the ER, as sometimes an emergency gallbladder removal is necessary. I hope it improves and I'll keep an eye out for the results. On 09/29/23 @ 16:07 Florinda Alston (Regarding Self / Same As Patient) Wrote To KristinEsmer I had my ultrasound today and while she was pressing I was getting severe pain in middle upper, middle stomach too. She also looked at my gallbladder too as I was getting sharp pain under rib when I had to hold my breath. sharp pain when pressing along ribcage right side was bad. I have been in constant pain under right rib and around right back. Nausea, no appetite, lising weight, stomach hurts after eating. That started couple weeks ago and vision bothering me. I did have eye exam in Oct 2022 when I was getting headaches and it was good. It hurts to lie on back still, bloating, headaches and I noticed a little cough now. I also noticed I have been urinating more than usual and after I void I get the feeling to go again even though I just went. I haven't taken the calfate and still have headaches. I have bone scan scheduled for 10/16. Do you want to schedule appt to see you after 10/16? I don't know how long before results are in on bone scan. Thank you Esmer I wanted to let you know as it TODAYS VISIT Her right sided pain continues and slowly is worsening and spreading. It is now her whole right side, and radiates up to her shoulder and down her back. It is described as throbbing and constant and not r/t eating or moving her bowels. She still has appetite problems that we have not been able to pin down. The pain under her ribcage does not respond to bentyl, so not likely the bowel. She has had an EGD, colonoscopy, multiple CT's, XR's, even a mesenteric US. Her sx are not c/w gastroparesis, and she could not tolerate reglan in the past anyway, and she has no gallstones. I would consider HIDA if the sx were driven by eating, but since they do not change this likely would not be warranted. She continues on pantoprazole, famotidine and bentyl. She has not been needing the carafate recently. She is concerned regarding her kidneys for the pain, but this is out of my area of expertise. She has labs pending from her PCP but her renal fxn has been normal in the past. I suggest she start with the labs and consider if referral to specilsts is warranted. ROV 6 mos. [facility] Medical History (Updated 06/16/24 @ 14:59 by ROSANNE Del Toro) Hyperkalemia Gastritis Right flank pain Abnormal x-ray of bone UTI (urinary tract infection) C. difficile diarrhea Annual physical exam COVID-19 virus infection Breast cancer screening by mammogram Diverticulitis Annual physical exam Wheezing Dysphagia Achalasia of esophagus Colon polyp Hiatal hernia PONV (postoperative nausea and vomiting) Colon cancer screening Abdominal bloating Diverticulitis Tobacco abuse Impaired glucose tolerance Bilateral carpal tunnel syndrome Obesity (BMI 30-39.9) Insomnia GERD (gastroesophageal reflux disease) Hypercholesterolemia Surgical History H/O colonoscopy History of esophagogastroduodenoscopy (EGD) History of rotator cuff surgery H/O left knee surgery History of arthroscopy of left knee History of right knee surgery History of D&C History of shoulder surgery History of carpal tunnel release History of fusion of cervical spine Family History Father Myocardial infarction Skin cancer Colon polyps Mother Myocardial infarction Maternal Grandmother Bone cancer Paternal Aunt Skin cancer Lupus Brother Myocardial infarction Substance abuse Sister Myocardial infarction Father Skin cancer Paternal Grandmother Lupus Social History Household Members: Spouse Housing: House Do you presently have visiting nurse or other home services: No Alcohol intake: current Alcohol intake frequency: does not drink Comment: QD supper time 1-2 glasses Patient Tobacco Use Status: Former Tobacco user Tobacco use type: Cigarette Cigarettes Per Day: 6 Years Smoked: e-Cigarette/Vaping Use: Never Used Second Hand Smoke Exposure: No Advance Directives Date on File: 01/07/21 service: No Current occupational status: employed Cognitive needs: No Hearing needs: No Vision needs: Yes (Glasses) Review of Systems Const Denies fatigue, Denies fever(s), Denies night sweats, Denies poor appetite and Denies weight loss Eyes Details: glasses Reports requires corrective lenses ENT Reports Normal hearing present, Denies dental pain, Denies dysphagia, Denies hearing loss, Denies mouth pain, Denies odynophagia, Denies throat swelling, Denies tongue swelling and Reports other (Dentition adequate) Card Reports no additional complaints Resp Reports no additional complaints GI Details: Denies abdominal pain, Denies melena, Denies bloating, Denies hematochezia, Reports constipation, Denies GI cramping, Denies dysphagia, Denies excessive flatus, Reports early satiety, Reports heartburn, Denies diarrhea, Reports nausea, Denies odynophagia, Reports vomiting and Denies hematemesis Skin/Breast Denies pruritus, Denies lesions, Denies rash and Denies jaundice Neuro Reports Normal hearing present and Denies Abnormal speech present Endo Denies fatigue Aller/Immun Denies throat swelling and Denies tongue swelling Physical Exam Vital Signs: Last Vital Signs BP 150/91 H 06/16/24 13:48 BMI result Body Mass Index 27.8 Const General: cooperative, no acute distress, well developed and well groomed Nutritional Appearance: average body habitus and well nourished Orientation/consciousness: oriented to person, oriented to place and oriented to time Limitations: No language barrier HEENT Head: Yes normocephalic and Yes atraumatic Eyes General: appearance normal, both eyes and all related structures Pupils: Equal, round and reactive pupils present Neck Neck: Yes normal visual inspection and Yes no lymphadenopathy Thyroid: Thyroid normal Resp Effort & Inspection: normal respiratory effort and able to speak in complete sentences Auscultation: clear to auscultation bilaterally Cardio Rate: regular rate Rhythm: regular rhythm Heart sounds: Normal, physiologic split S2 sound present Peripheral pulses: radial pulses present and posterior tibial pulses present GI Inspection: No distended and No Abdominal panniculus present Palpation (GI): Soft to palpation, nontender, no guarding, not rigid and No hepatosplenomegaly present Percussion: Yes normal to percussion Auscultation: normal bowel sounds Rectal Exam - Female: deferred Skin General skin exam: no rashes or lesions noted, turgor normal, skin not dry, no jaundice, No spider nevi and no striae Rashes: no rashes Nails: normal Neuro General: oriented to person, oriented to place and oriented to time Cranial nerves: Yes Equal, round and reactive pupils present and Yes Normal hearing present Speech: No Abnormal speech present Extrem General: Yes normal to inspection, No clubbing, No cyanosis and No edema Psych Appearance: grossly normal and well kempt Mental Status: mental status grossly normal Speech and movement: Normal speech and movement present Affect: normal affect Attitude: cooperative Thought process: Normal thought process present and not confabulating Thought content: Normal thought content present Insight: Limited insight present (Psych) Judgement: Limited judgement present (Psych) Assessment & Plan Assessment & Plan (1) Delayed gastric emptying: Comment: She had a bad reaction to Reglan but she also has severe lower esophageal dysmotility that makes her more prone to GERD. a.eb Code(s): K30 - Functional dyspepsia Category: Medical (2) GERD (gastroesophageal reflux disease): Code(s): K21.9 - Gastro-esophageal reflux disease without esophagitis Category: Medical Qualifiers: Esophagitis presence: without esophagitis Qualified Code(s): K21.9 - Gastro-esophageal reflux disease without esophagitis Plan Her right sided pain continues and slowly is worsening and spreading. It is now her whole right side, and radiates up to her shoulder and down her back. It is described as throbbing and constant and not r/t eating or moving her bowels. She still has appetite problems that we have not been able to pin down. The pain under her ribcage does not respond to bentyl, so not likely the bowel. She has had an EGD, colonoscopy, multiple CT's, XR's, even a mesenteric US. Her sx are not c/w gastroparesis, and she could not tolerate reglan in the past anyway, and she has no gallstones. I would consider HIDA if the sx were driven by eating, but since they do not change this likely would not be warranted. She continues on pantoprazole, famotidine and bentyl. She has not been needing the carafate recently. She is concerned regarding her kidneys for the pain, but this is out of my area of expertise. She has labs pending from her PCP but her renal fxn has been normal in the past. I suggest she start with the labs and consider if referral to specilsts is warranted. ROV 6 mos. Medications: Refilled famotidine 40 mg PO BID 180 tabs 1RF sucralfate (Carafate) 20 mL PO QNOON 1,000 mL 2RF R19.7 - Diarrhea, unspecified dicyclomine 20 mg PO QID PRN 120 tabs 1RF for abdominal pain 90 days pantoprazole 40 mg PO DAILY 90 tabs 1RF K21.9 - Gastro-esophageal reflux disease without esophagitis Coding Level of Care Code Est Pt Level 3 (62903) Diagnoses Delayed gastric emptying K30 Gastroesophageal reflux disease without esophagitis K21.9 Esophagitis presence: without esophagitis
== END 2024-06-16 14:37 | disposition home or self-care (01) ==
PROVIDERS: PCP Internal Medicine; Visit Provider Nurse Practitioner
DX: K30 Functional dyspepsia (principal); K21.9 Gastro-esophageal reflux disease without esophagitis
CPT/HCPCS: 99213

== ENCOUNTER → 2024-06-16 13:38 | Outpatient (BNVA) | payer OTHER, SELFPAY | PROVIDERS: PCP Internal Medicine; Visit Provider Nurse Practitioner | DX: K29.70 Gastritis, unspecified, without bleeding (principal); K30 Functional dyspepsia; K21.9 Gastro-esophageal reflux disease without esophagitis; R13.10 Dysphagia, unspecified; E78.00 Pure hypercholesterolemia, unspecified; R10.9 Unspecified abdominal pain; M47.24 Other spondylosis with radiculopathy, thoracic region; R19.7 Diarrhea, unspecified | CPT/HCPCS: 99212 ==

== ENCOUNTER 2024-06-22 08:29 | Outpatient (REF) | payer OTHER, SELFPAY ==
[2024-06-22 10:14] LABS: MANUAL DIFF FLAG NO
[2024-06-22 10:20] LABS: Basophils Absolute Auto 0.1 X10*3/uL (0.0-0.2); Basophils Percent Auto 0.7 % (0-2); Eosinophils Absolute Auto 0.2 X10*3/uL (0.0-0.4); Eosinophils Percent Auto 2.2 % (0-4); Hematocrit 42.7 % (37.0-47.0); Hemoglobin 14.4 g/dl (12.0-16.0); Imm Gran Abs Auto 0.06 X10*3/uL (0.00-0.03); Imm Gran Pct Auto 0.8 % (0.0-0.4); Lymphocytes Absolute Auto 1.7 X10*3/uL (1.2-4.9); Lymphocytes Percent Auto 22.4 % (20-40); Mean Corpuscular HGB Conc 33.7 g/dl (31.0-35.0); Mean Corpuscular Hemoglobin 29.9 pg (27.0-33.0); Mean Corpuscular Volume 88.8 fL (80.0-98.0); Mean Platelet Volume 10.9 fL (9.4-12.3); Monocytes Absolute Auto 0.7 X10*3/uL (0.1-1.2); Monocytes Percent Auto 8.8 % (2-11); Neutrophils Absolute Auto 4.8 x10*3/uL (2.0-8.3); Neutrophils Percent Auto 65.1 % (45-73); Platelet Count 272 X10*3/uL (160-400); Red Blood Count 4.81 X10*6/uL (4.20-5.50); Red Cell Distribution Width 13.2 % (11.0-16.0); White Blood Count 7.4 X10*3/uL (4.8-10.8)
[2024-06-22 10:33] LABS: Estimated Average Glucose 114 mg/dL; Hemoglobin A1c % 5.6 % (<6.0)
[2024-06-22 10:56] LABS: Alanine Aminotransferase 40 U/L (0-31); Albumin Level 4.6 g/dL (3.5-5.0); Alkaline Phosphatase 93 U/L (39-117); Anion Gap 14 (12-20); Aspartate Amino Transferase 30 U/L (5-31); Bilirubin Total 0.3 mg/dL (0.0-1.0); Blood Urea Nitrogen 11 mg/dL (9-16); Calcium 9.4 mg/dL (8.4-10.2); Carbon Dioxide 27 mmol/L (22-29); Chloride 106 mmol/L (96-108); Cholesterol 267 mg/dL (<200); Estimated Glomerular Filt Rate > 60; Glucose Random 113 mg/dL (60-115); HDL Cholesterol 69 mg/dL (>40); LDL Cholesterol Calculated 167 mg/dL (<100); Potassium 4.6 mmol/L (3.3-5.1); Sodium 142 mmol/L (135-145); Total Protein 7.2 g/dL (6.5-8.0); Triglycerides 158 mg/dL (<150)
[2024-06-22 10:57] LABS: Free T4 (Free Thyroxine) 0.94 ng/dL (0.71-1.85); Thyroid Stimulating Hormone 3.28 uIU/mL (0.32-4.0); Vitamin D 25-OH Total 63.9 ng/mL (>30)
[2024-06-22 11:07] LABS: Folate 3.3 ng/mL (> or = 4.0); Vitamin B12 328 pg/mL (200-900)
== END 2024-06-22 08:30 | disposition home or self-care (01) ==
LOC: HO.HMGCLDS 08:29
PROVIDERS: PCP Internal Medicine; Visit Provider Internal Medicine
DX: E78.00 Pure hypercholesterolemia, unspecified (principal)
CPT/HCPCS: 36415; 80053; 80061; 82306; 82607; 82746; 83036; 84439; 84443; 85025

== ENCOUNTER 2024-06-28 08:42 | Outpatient (AMB) | payer OTHER, SELFPAY ==
[2024-06-28 09:01] VITALS: BP 114/76; PULSE 75; O2SAT 97; BMI 27.1
--- NOTE | 2024-06-28 09:01 | A.OFFPC_ITS ---
Vital Signs 06/28/24 09:01 Height 5 ft 4 in Weight 158 lb BMI 27.1 BP 114/76 Blood Pressure Location Lt brachial Position Sitting Pulse 75 Pulse Source Pulse Oximeter Pulse Oximetry (%) 97 Oxygen Delivery Method Room Air Intake Visit Reasons: low back pain Allergies amoxicillin [Amoxicillin] Allergy (Intermediate, Verified 06/28/24 09:02) Nausea azithromycin [From Zithromax] Allergy (Intermediate, Verified 06/28/24 09:02) Itching environmental allergies Allergy (Intermediate, Verified 06/28/24 09:02) Nasal congestion, watery eyes erythromycin base [Erythromycin Base] Allergy (Intermediate, Verified 06/28/24 09:02) Nausea metoclopramide Allergy (Intermediate, Verified 06/28/24 09:02) swelling hands/feet Sulfa (Sulfonamide Antibiotics) Allergy (Intermediate, Verified 06/28/24 09:02) Nausea trazodone Allergy (Intermediate, Verified 06/28/24 09:02) vivid dreams codeine Allergy (Verified 06/28/24 09:02) Nausea bupropion [From Wellbutrin] Adverse Reaction (Verified 06/28/24 09:02) Headaches Tobacco use date assessed: 12/23/23 Dental Screening Dental Screen Date: 06/28/24 Did you have a dental visit in the last 12 months?: No Did you have a dental problem in the last 6 months where you did not have access to dental care?: No Was dental information given to patient?: Patient has dentist HPI low back pain HPI Details 58-year-old overweight female with hyper cholesterolemia GERD impaired glucose tolerance generalized anxiety disorder obstructive sleep apnea coming in for follow-up. Last seen in December 2023 for physical exam. Patient had some low back pain x-ray requested. As for colonoscopy 11/04/2021, mammogram reminded bone density up-to-date. Patient has seen gastroenterology in June whole left back side pain patient has severe lower esophageal dysmotility but had a bad reaction to Reglan. As for the x-ray of the spine showing sacroiliac joints patent, L5-S1 neural foraminal narrowing with multilevel degenerative changes. complains of RUQ radiating to the R flank then to R upper back with pain on deep breath. epigastric area- eating makes . BM no problem has frequency. [facility] Medical History (Updated 06/28/24 @ 09:36 by Roney Merino MD) Right flank pain COVID-19 virus infection Abdominal pain Hyperkalemia Gastritis Abnormal x-ray of bone UTI (urinary tract infection) C. difficile diarrhea Annual physical exam Breast cancer screening by mammogram Diverticulitis Annual physical exam Wheezing Dysphagia Achalasia of esophagus Colon polyp Hiatal hernia PONV (postoperative nausea and vomiting) Colon cancer screening Abdominal bloating Diverticulitis Tobacco abuse Impaired glucose tolerance Bilateral carpal tunnel syndrome Obesity (BMI 30-39.9) Insomnia GERD (gastroesophageal reflux disease) Hypercholesterolemia Surgical History H/O colonoscopy History of esophagogastroduodenoscopy (EGD) History of rotator cuff surgery H/O left knee surgery History of arthroscopy of left knee History of right knee surgery History of D&C History of shoulder surgery History of carpal tunnel release History of fusion of cervical spine Family History Father Myocardial infarction Skin cancer Colon polyps Mother Myocardial infarction Maternal Grandmother Bone cancer Paternal Aunt Skin cancer Lupus Brother Myocardial infarction Substance abuse Sister Myocardial infarction Father Skin cancer Paternal Grandmother Lupus Social History Household Members: Spouse Housing: House Do you presently have visiting nurse or other home services: No Alcohol intake: current Alcohol intake frequency: does not drink Comment: QD supper time 1-2 glasses Patient Tobacco Use Status: Former Tobacco user Tobacco use type: Cigarette Cigarettes Per Day: 6 Years Smoked: e-Cigarette/Vaping Use: Never Used Second Hand Smoke Exposure: No Advance Directives Date on File: 01/07/21 service: No Current occupational status: employed Cognitive needs: No Hearing needs: No Vision needs: Yes (Glasses) Questionnaire PHQ-9 Over the last 2 weeks, how often have you been bothered by any of the following problems? 1. Little interest or pleasure in doing things: not at all 2. Feeling down, depressed, or hopeless: not at all 3. Trouble falling or staying asleep, or sleeping too much: not at all 4. Feeling tired or having little energy: not at all 5. Poor appetite or overeating: not at all 6. Feeling bad about yourself - or that you are a failure or have let yourself or your family down: not at all 7. Trouble concentrating on things, such as reading the newspaper or watching television: not at all 8. Moving or speaking so slowly that other people could have noticed. Or the opposite - being so fidgety or restless that you have been moving around a lot more than usual: not at all 9. Thoughts that you would be better off or of hurting yourself in some way: not at all Total score: 0 Depression Screening Interpretation: Positive Depression Screening Follow-up: Existing condition and In treatment Depression Screening Done: Yes Source: Developed by Drs. Sunny Thurston, Marlene Grigsby, Salomon Soares and colleagues, with an educational rajesh from [employer] Thrive Questionnaire Date Thrive assessed: 12/23/23 AUDIT C Alcohol Use Questionnaire (AUDIT-C) 1. How often do you have a drink containing alcohol?: Never 3. How often do you have six or more drinks on one occasion?: Never Total Score: 0 VALENTIN-7 AMB Questionnaire VALENTIN-7 Date VALENTIN - 7 assessed: 12/23/23 Source: Developed by Drs. Sunny Thurston, Salomon Cifuentes and colleagues, with an educational rajesh from [employer] Physical exam (Primary Care) Vital Signs: Last Vital Signs Pulse 75 06/28/24 09:01 BP 114/76 06/28/24 09:01 Pulse Ox 97 06/28/24 09:01 Oxygen Delivery Method Room Air 06/28/24 09:01 BMI result Body Mass Index 27.1 Tobacco/Smoking Status: Tobacco use Status Tobacco use date assessed 12/23/23 06/28/24 09:07 Patient Tobacco Use Status Former Tobacco user 06/28/24 09:07 Tobacco use type Cigarette 06/28/24 09:07 e-Cigarette/Vaping Use Never Used 06/28/24 09:07 PHQ-9: PHQ-9 Score PHQ-9: Total score 0 06/28/24 09:07 Depression Screening Interpretation: Positive Depression Screening Follow-up: Existing condition and In treatment Thrive Assessment: Date of Thrive Assessment Date Thrive assessed 12/23/23 06/28/24 09:07 Const General: alert; No acute distress Eyes Conjunctivae: conjunctivae normal Resp Auscultation: clear to auscultation bilaterally Cardio Rate: regular rate Rhythm: regular rhythm GI Inspection: Yes normal to inspection Extrem General: Yes normal to inspection and No edema Assessment and Plan Assessment & Plan (1) LFT elevation: Code(s): R79.89 - Other specified abnormal findings of blood chemistry Plan: Advised to get repeat testing with hepatitis profile and ultrasound of the abdomen (2) Low back pain: Code(s): M54.50 - Low back pain, unspecified (3) Impaired glucose tolerance: Code(s): R73.02 - Impaired glucose tolerance (oral) Plan: Folic acid prescription sent in (4) GERD (gastroesophageal reflux disease): Code(s): K21.9 - Gastro-esophageal reflux disease without esophagitis Qualifiers: Esophagitis presence: without esophagitis Qualified Code(s): K21.9 - Gastro-esophageal reflux disease without esophagitis Plan: Avoid the foods that causes that usually spicy foods, tomato products, juices, coffee, soda and foods that your sensitive to. After eating do not lie down, allow 3-4 hours before in lie down. And keep the head of bed above 30 degrees to avoid the acid from going up. (5) Hypercholesterolemia: Code(s): E78.00 - Pure hypercholesterolemia, unspecified Plan: Avoid fried foods, chicken skin, eggs, butter margarine, pastries and meat. Be it pork or beef they have a lot of cholesterol LDL goal of less than 130 and triglyceride of less than 150 (6) Lumbar degenerative disc disease: Code(s): M51.36 - Other intervertebral disc degeneration, lumbar region Plan: Patient was advised physical therapy. MRI declined. (7) COVID-19 virus infection: Comment: 05/28/2022, 05/2023 Code(s): U07.1 - COVID-19 (8) Right flank pain: Code(s): R10.9 - Unspecified abdominal pain Orders: Orders XR chest 2V Today U07.1 - COVID-19 UA CC w/rflx Micro + Cult Today R10.9 - Unspecified abdominal pain, R30.0 - Dysuria Coding Level of Care Code Est Pt Level 4 (40023) Diagnoses LFT elevation R79.89 Low back pain M54.50 Impaired glucose tolerance R73.02 Gastroesophageal reflux disease without esophagitis K21.9 Esophagitis presence: without esophagitis Hypercholesterolemia E78.00 Lumbar degenerative disc disease M51.36 COVID-19 virus infection U07.1 Right flank pain R10.9
== END 2024-06-28 09:46 | disposition home or self-care (01) ==
PROVIDERS: PCP Internal Medicine; Visit Provider Internal Medicine
DX: R79.89 Other specified abnormal findings of blood chemistry (principal); M54.50 Low back pain, unspecified; R73.02 Impaired glucose tolerance (oral); K21.9 Gastro-esophageal reflux disease without esophagitis; E78.00 Pure hypercholesterolemia, unspecified; M51.36 Other intervertebral disc degeneration, lumbar region; U07.1 COVID-19; R10.9 Unspecified abdominal pain
CPT/HCPCS: 99214

== ENCOUNTER 2024-06-28 11:22 | Outpatient (REF) | payer OTHER, SELFPAY ==
--- NOTE | ~2024-06-28 | XR_ITS ---
EXAMINATION: XR chest 2V CLINICAL INFORMATION: Reason for Exam U07.1 - COVID-19 COMPARISON: Multiple prior chest x-ray 09/11/2022 and November 2023 TECHNIQUE: XR chest 2V, 2 Views Lungs and Laure: Lungs are clear, density projecting over the left upper lobe likely correlate with osteophyte at the first costochondral junction unchanged from prior exam. Pleura: Normal. Costophrenic angles are sharp. No pneumothorax. Heart: The heart is normal in size. Mediastinum: The mediastinum is within normal limits.. Bones: Skeletal structures included are normal for patient's age. XR/XR chest 2V IMPRESSION: No radiographic evidence of acute cardiopulmonary disease.
--- NOTE | ~2024-06-28 | US_ITS ---
EXAMINATION: US ABDOMEN LIMITED CLINICAL INFORMATION: Elevated LFTs. COMPARISON: CT abdomen and pelvis 04/20/2023. TECHNIQUE: Real-time imaging of the right upper quadrant abdominal viscera. FINDINGS: PANCREAS: Normal head, body and proximal tail of the pancreas. The distal tail of the pancreas is obscured by bowel gas. LIVER: The liver is normal in size. The liver contour is normal. There is diffuse increased liver parenchymal echogenicity, consistent with hepatic steatosis. No focal hepatic lesion. There is no intrahepatic biliary duct dilatation seen. GALLBLADDER: Normal. The gallbladder is physiologically distended without evidence of stones, sludge, polyps, wall thickening or pericholecystic fluid. No sonographic Chapa's sign COMMON BILE DUCT: Normal in caliber measuring 0.13 cm in diameter. RIGHT KIDNEY: Normal. No hydronephrosis. No renal calculi or focal parenchymal lesions. The kidney measures 9.7 cm in maximum dimension. FREE FLUID: None. US/US abdomen limited IMPRESSION: Hepatic steatosis.
[2024-06-28 13:39] LABS: Appearance Urine Cloudy; Color Urine Yellow; Glucose Urine UA Negative (Negative); Leukocyte Esterase Urine Small (1+) (Negative); Nitrite Urine Negative (Negative); Specific Gravity - Urine >= 1.030 (1.005-1.025); UMIC TRIGGER UACC YES; Urine Blood Trace (Negative); Urine Ketones 15 mg/dL (Negative); Urine Protein Negative (Neg-Trace)
[2024-06-28 13:43] LABS: Bacteria Urine 4+ (None Seen); Hyaline Casts Urine 0-2 /LPF (0-2); Squamous Epithelial Cell Urine >20 /HPF (0-2); UACC Culture Trigger YES; WBC Urine >50 /HPF (0-5)
== END 2024-06-28 11:23 | disposition home or self-care (01) ==
LOC: HO.HMGCX 11:22
PROVIDERS: PCP Internal Medicine; Visit Provider Internal Medicine
DX: R79.89 Other specified abnormal findings of blood chemistry (principal); U07.1 COVID-19
CPT/HCPCS: 71046; 76705; 81001; 87086

== ENCOUNTER 2024-07-12 10:09 | Outpatient (REF) | payer OTHER, SELFPAY ==
[2024-07-12 13:21] LABS: Appearance Urine Clear; Color Urine Yellow; Glucose Urine UA Negative (Negative); Leukocyte Esterase Urine Small (1+) (Negative); Nitrite Urine Negative (Negative); Specific Gravity - Urine <= 1.005 (1.005-1.025); UMIC TRIGGER UACC YES; Urine Blood Negative (Negative); Urine Ketones Negative (Negative); Urine Protein Negative (Neg-Trace)
[2024-07-12 13:35] LABS: Bacteria Urine None Seen (None Seen); Hyaline Casts Urine 0-2 /LPF (0-2); RBC Urine 0-2 /HPF (0-2); Squamous Epithelial Cell Urine 0-2 /HPF (0-2); UACC Culture Trigger YES; WBC Urine 0-5 /HPF (0-5)
== END 2024-07-12 10:10 | disposition home or self-care (01) ==
LOC: HO.HMGCLDS 10:09
PROVIDERS: PCP Internal Medicine; Visit Provider Internal Medicine
DX: R79.89 Other specified abnormal findings of blood chemistry (principal); R30.0 Dysuria; R10.9 Unspecified abdominal pain
CPT/HCPCS: 81001; 86704; 86706; 87086; 87340

== ENCOUNTER 2024-08-18 11:37 | Outpatient (REF) | payer OTHER, SELFPAY ==
[2024-08-18 13:20] LABS: Appearance Urine Clear; Color Urine Yellow; Glucose Urine UA Negative (Negative); Leukocyte Esterase Urine Trace (Negative); Nitrite Urine Negative (Negative); PH 6.5 (5.0-9.0); UMIC TRIGGER UACC YES; Urine Blood Negative (Negative); Urine Ketones Negative (Negative); Urine Protein Negative (Neg-Trace)
[2024-08-18 13:26] LABS: Bacteria Urine None Seen (None Seen); Hyaline Casts Urine 0-2 /LPF (0-2); RBC Urine 0-2 /HPF (0-2); Squamous Epithelial Cell Urine 0-2 /HPF (0-2); WBC Urine 0-5 /HPF (0-5)
== END 2024-08-18 11:38 | disposition home or self-care (01) ==
LOC: HO.HMGCLDS 11:37
PROVIDERS: PCP Internal Medicine; Visit Provider Internal Medicine
DX: R30.0 Dysuria (principal); R10.9 Unspecified abdominal pain
CPT/HCPCS: 81001

== ENCOUNTER 2024-10-11 14:05 | Outpatient (AMB) | payer OTHER, SELFPAY ==
[2024-10-11 14:12] VITALS: BP 128/68; PULSE 78; O2SAT 97; BMI 26.1
--- NOTE | 2024-10-11 14:12 | A.OFFPC_ITS ---
Vital Signs 10/11/24 14:12 Height 5 ft 4 in Weight 152 lb BMI 26.1 BP 128/68 Blood Pressure Location Lt brachial Position Sitting Pulse 78 Pulse Source Pulse Oximeter Pulse Oximetry (%) 97 Oxygen Delivery Method Room Air Intake Visit Reasons: 3 month follow up Allergies amoxicillin [Amoxicillin] Allergy (Intermediate, Verified 10/11/24 14:12) Nausea azithromycin [From Zithromax] Allergy (Intermediate, Verified 10/11/24 14:12) Itching environmental allergies Allergy (Intermediate, Verified 10/11/24 14:12) Nasal congestion, watery eyes erythromycin base [Erythromycin Base] Allergy (Intermediate, Verified 10/11/24 14:12) Nausea metoclopramide Allergy (Intermediate, Verified 10/11/24 14:12) swelling hands/feet Sulfa (Sulfonamide Antibiotics) Allergy (Intermediate, Verified 10/11/24 14:12) Nausea trazodone Allergy (Intermediate, Verified 10/11/24 14:12) vivid dreams codeine Allergy (Verified 10/11/24 14:12) Nausea bupropion [From Wellbutrin] Adverse Reaction (Verified 10/11/24 14:12) Headaches Tobacco use date assessed: 10/11/24 Dental Screening Dental Screen Date: 06/28/24 HPI 3 month follow up HPI Details 59 year old overweight female with impai red glucose tolerance GERD hypercholesterol lumbar degenerative disc disease coming in for follow-up. Last seen in June 2024 patient had elevated liver function tests also. As for colonoscopy 2020, mammogram is being done in a different hospital. For the blood work that was done showing elevated liver function tests an ultrasound of the liver done showing hepatic steatosis. noted weight drop and quit alcohol. 3 days under the breast noted rash picture given showing L breast rash. Patient is relating to be that she has been eating better and that she will told drinking the pineapple juice is healthy and so she has been drinking and eating pineapple cans for times a week. Concerned brought up to the patient as the patient complained about rash on the left breast that it is fungal infection and so will check for blood sugar also [facility] Medical History (Updated 10/11/24 @ 14:43 by Roney Merino MD) LFT elevation Right flank pain COVID-19 virus infection Abdominal pain Hyperkalemia Gastritis Abnormal x-ray of bone UTI (urinary tract infection) C. difficile diarrhea Annual physical exam Breast cancer screening by mammogram Diverticulitis Annual physical exam Wheezing Dysphagia Achalasia of esophagus Colon polyp Hiatal hernia PONV (postoperative nausea and vomiting) Colon cancer screening Abdominal bloating Diverticulitis Tobacco abuse Impaired glucose tolerance Bilateral carpal tunnel syndrome Obesity (BMI 30-39.9) Insomnia GERD (gastroesophageal reflux disease) Hypercholesterolemia Surgical History H/O colonoscopy History of esophagogastroduodenoscopy (EGD) History of rotator cuff surgery H/O left knee surgery History of arthroscopy of left knee History of right knee surgery History of D&C History of shoulder surgery History of carpal tunnel release History of fusion of cervical spine Family History Father Myocardial infarction Skin cancer Colon polyps Mother Myocardial infarction Maternal Grandmother Bone cancer Paternal Aunt Skin cancer Lupus Brother Myocardial infarction Substance abuse Sister Myocardial infarction Father Skin cancer Paternal Grandmother Lupus Social History Household Members: Spouse Housing: House Do you presently have visiting nurse or other home services: No Alcohol intake: current Alcohol intake frequency: does not drink Comment: QD supper time 1-2 glasses Patient Tobacco Use Status: Former Tobacco user Tobacco use type: Cigarette Cigarettes Per Day: 6 Years Smoked: Packs per year/per ci.00 e-Cigarette/Vaping Use: Never Used Second Hand Smoke Exposure: No Advance Directives Date on File: 01/07/21 service: No Current occupational status: employed Cognitive needs: No Hearing needs: No Vision needs: Yes (Glasses) Questionnaire PHQ-9 Over the last 2 weeks, how often have you been bothered by any of the following problems? 1. Little interest or pleasure in doing things: not at all 2. Feeling down, depressed, or hopeless: not at all 3. Trouble falling or staying asleep, or sleeping too much: not at all 4. Feeling tired or having little energy: not at all 5. Poor appetite or overeating: not at all 6. Feeling bad about yourself - or that you are a failure or have let yourself or your family down: not at all 7. Trouble concentrating on things, such as reading the newspaper or watching television: not at all 8. Moving or speaking so slowly that other people could have noticed. Or the opposite - being so fidgety or restless that you have been moving around a lot more than usual: not at all 9. Thoughts that you would be better off or of hurting yourself in some way: not at all Total score: 0 Depression Screening Interpretation: Positive Depression Screening Follow-up: Existing condition and In treatment Depression Screening Done: Yes Source: Developed by Drs. Sunny Thurston, Marlene Grigsby, Salomon Soares and colleagues, with an educational rajesh from [employer]. Thrive Questionnaire Date Thrive assessed: 12/23/23 AUDIT C Alcohol Use Questionnaire (AUDIT-C) 1. How often do you have a drink containing alcohol?: Never 3. How often do you have six or more drinks on one occasion?: Never Total Score: 0 VALENTIN-7 AMB Questionnaire VALENTIN-7 Date VALENTIN - 7 assessed: 12/23/23 Source: Developed by Drs. Sunny Thurston, Marlene Grigsby, Salomon Soares and colleagues, with an educational rajesh from [employer]. Physical exam (Primary Care) Vital Signs: Last Vital Signs Pulse 78 10/11/24 14:12 BP 128/68 10/11/24 14:12 Pulse Ox 97 10/11/24 14:12 Oxygen Delivery Method Room Air 10/11/24 14:12 Next steps: Left breast picture inframammary area with maculopapular rash with satellite lesions about 2-3 cm all-in-all BMI result Body Mass Index 26.1 Tobacco/Smoking Status: Tobacco use Status Tobacco use date assessed 10/11/24 10/11/24 14:14 Patient Tobacco Use Status Former Tobacco user 10/11/24 14:14 Tobacco use type Cigarette 10/11/24 14:14 e-Cigarette/Vaping Use Never Used 10/11/24 14:14 PHQ-9: PHQ-9 Score PHQ-9: Total score 0 10/11/24 14:19 Depression Screening Interpretation: Positive Depression Screening Follow-up: E xisting condition and In treatment Thrive Assessment: Date of Thrive Assessment Date Thrive assessed 12/23/23 10/11/24 14:14 Const General: alert; No acute distress Eyes Conjunctivae: conjunctivae normal Resp Auscultation: clear to auscultation bilaterally Cardio Rate: regular rate Rhythm: regular rhythm GI Inspection: Yes normal to inspection Extrem General: Yes normal to inspection and No edema Coding Level of Care Code Est Pt Level 4 (90567) Complex EM visit Add On G2211 Diagnoses Hepatic steatosis K76.0 Obstructive sleep apnea (adult) (pediatric) G47.33 Gastroesophageal reflux disease without esophagitis K21.9 Esophagitis presence: without esophagitis Hypercholesterolemia E78.00 Impaired glucose tolerance R73.02 Generalized anxiety disorder F41.1 Tinea corporis B35.4 Assessment & Plan Assessment & Plan (1) Hepatic steatosis: Comment: June 2024 Code(s): K76.0 - Fatty (change of) liver, not elsewhere classified Category: Medical Plan: Low-fat diet and exercise (2) Obstructive sleep apnea (adult) (pediatric): Comment: October 2022 [facility] BiPAP Code(s): G47.33 - Obstructive sleep apnea (adult) (pediatric) Category: Medical Plan: Continue to use the CPAP more than 4 hours a night and benefits from this. (3) GERD (gastroesophageal reflux disease): Code(s): K21.9 - Gastro-esophageal reflux disease without esophagitis Category: Medical Qualifiers: Esophagitis presence: without esophagitis Qualified Code(s): K21.9 - Gastro-esophageal reflux disease without esophagitis Plan: Avoid the foods that causes that usually spicy foods, tomato products, juices, coffee, soda and foods that your sensitive to. After eating do not lie down, allow 3-4 hours before in lie down. And keep the head of bed above 30 degrees to avoid the acid from going up. (4) Hypercholesterolemia: Code(s): E78.00 - Pure hypercholesterolemia, unspecified Category: Medical Plan: Avoid fried foods, chicken skin, eggs, butter margarine, pastries and meat. Be it pork or beef they have a lot of cholesterol LDL goal of less than 130 and triglyceride of less than 150 on atorvastatin 20 mg once a day (5) Impaired glucose tolerance: Code(s): R73.02 - Impaired glucose tolerance (oral) Category: Medical Plan: Decrease the amount of carbohydrate intake, pasta, bread, rice and potatoes are all sugar and that is aside from all the sweet stuff, remember that fruits are good but they are Sweet also. Concerned that the patient has been eating pineapple and drinking the juice 4 cans a week as this are high glucose loads. (6) Generalized anxiety disorder: Comment: Patient has counseling 2 times a week(September 2021) [facility] (05/2022) Code(s): F41.1 - Generalized anxiety disorder Category: Medical Plan: Continue with counseling and therapy (7) Tinea corporis: Code(s): B35.4 - Tinea corporis Category: Medical Plan: cream and powder sent antifungal. will send for blood sugar test Orders: Orders Comprehensive Met. Panel Today R73.02 - Impaired glucose tolerance (oral) Hemoglobin A1c Today R73.02 - Impaired glucose tolerance (oral) Medications: New clotrimazole 1% 1 appl topical BID 4 weeks 30 grams 0RF B35.4 - Tinea corporis miconazole nitrate 2% (Zeasorb AF) 1 appl topical DAILY 85 grams 0RF B35.4 - Tinea corporis
== END 2024-10-11 16:09 | disposition home or self-care (01) ==
PROVIDERS: PCP Internal Medicine; Visit Provider Internal Medicine
DX: K76.0 Fatty (change of) liver, not elsewhere classified (principal); G47.33 Obstructive sleep apnea (adult) (pediatric); K21.9 Gastro-esophageal reflux disease without esophagitis; E78.00 Pure hypercholesterolemia, unspecified; R73.02 Impaired glucose tolerance (oral); F41.1 Generalized anxiety disorder; B35.4 Tinea corporis

== ENCOUNTER → 2024-10-11 14:05 | Outpatient (BNVA) | payer OTHER, SELFPAY | PROVIDERS: PCP Internal Medicine; Visit Provider Internal Medicine | DX: K76.0 Fatty (change of) liver, not elsewhere classified (principal); G47.33 Obstructive sleep apnea (adult) (pediatric); K21.9 Gastro-esophageal reflux disease without esophagitis; E78.00 Pure hypercholesterolemia, unspecified; R73.02 Impaired glucose tolerance (oral); F41.1 Generalized anxiety disorder; B35.4 Tinea corporis | CPT/HCPCS: 99212 ==

== ENCOUNTER 2025-01-02 09:04 | Outpatient (AMB) | payer OTHER, SELFPAY ==
[2025-01-02 09:07] VITALS: BP 118/76; PULSE 82; O2SAT 97; BMI 28.5
--- NOTE | 2025-01-02 09:07 | A.OFFPC_ITS ---
Vital Signs 01/02/25 09:07 Height 5 ft 2 in Weight 156 lb BMI 28.5 BP 118/76 Blood Pressure Location Lt brachial Position Sitting Pulse 82 Pulse Source Pulse Oximeter Pulse Oximetry (%) 97 Oxygen Delivery Method Room Air Intake Visit Reasons: Annual Exam Allergies amoxicillin [Amoxicillin] Allergy (Intermediate, Verified 01/02/25 09:07) Nausea azithromycin [From Zithromax] Allergy (Intermediate, Verified 01/02/25 09:07) Itching environmental allergies Allergy (Intermediate, Verified 01/02/25 09:07) Nasal congestion, watery eyes erythromycin base [Erythromycin Base] Allergy (Intermediate, Verified 01/02/25 09:07) Nausea metoclopramide Allergy (Intermediate, Verified 01/02/25 09:07) swelling hands/feet Sulfa (Sulfonamide Antibiotics) Allergy (Intermediate, Verified 01/02/25 09:07) Nausea trazodone Allergy (Intermediate, Verified 01/02/25 09:07) vivid dreams codeine Allergy (Verified 01/02/25 09:07) Nausea bupropion [From Wellbutrin] Adverse Reaction (Verified 01/02/25 09:07) Headaches Medication List - Last Reconciled 01/02/25 by Roney Merino MD atorvastatin 20 mg PO DAILY biotin 1 mg PO DAILY calcium carbonate-vitamin D3 600 mg-10 mcg (400 unit) (Calcium 600 + D(3)) 2 tabs PO DAILY clotrimazole 1% 1 appl topical BID 4 weeks cyclobenzaprine 10 mg PO TID PRN dicyclomine 20 mg PO QID PRN 90 days famotidine 40 mg PO BID folic acid 1 mg PO DAILY lorazepam (Ativan) 0.5 mg PO BEDTIME PRN miconazole nitrate 2% (Zeasorb AF) 1 appl topical DAILY [nasal spray intranasal PRN] omega-3 fatty acids (Fish Oil Concentrate) 1,000 mg PO DAILY pantoprazole 40 mg PO DAILY Saccharomyces boulardii (Probiotic (S.boulardii)) 250 mg PO BID sertraline 200 mg PO QAM zolpidem 10 mg PO BEDTIME PRN Tobacco use date assessed: 01/02/25 Dental Screening Dental Screen Date: 01/02/25 Did you have a dental visit in the last 12 months?: Yes Did you have a dental problem in the last 6 months where you did not have access to dental care?: No Was dental information given to patient?: Patient has dentist HPI Annual Exam HPI Details The patient is a 59-year-old female presenting with a focus on wellness and the management of chronic conditions during this visit. The patient has a h istory of gastroesophageal reflux disease, characterized by the use of famotidine and pantoprazole, though she reports not using Carafate recently. Hypercholesterolemia is managed with atorvastatin 20 mg daily, with recent labs indicating elevated LDL at 167 mg/dL. The patient also manages a generalized anxiety disorder with sertraline 200 mg daily and lorazepam as needed, alongside obstructive sleep apnea for which she utilizes CPAP therapy more than four hours nightly. The patient has hepatic steatosis, though no specific discussion about its management occurred. Recently, the patient experienced a third COVID-19 infection starting late November to December, for which Paxlovid was prescribed. The patient also reports a familial history of cardiac disease and cancer, though she herself stopped alcohol consumption last summer and ceased smoking three years ago. Previous labs showed elevated blood sugar levels with normal hemoglobin A1c, and there remains an emphasis on monitoring these levels. - Colonoscopy completed in October 2021 . - [place] [facility] [id number] - Last mammogram conducted in Spring, specific record unavailable. - Last blood work in June, showing tashia vated blood sugar, elevated LDL at 167 mg/dL, and low folate levels. - Discussions on low-fat diet and exerci se. - COVID-19 monitoring and vaccination. - Discussion on reducing sugar intake in itiated by the patient. - Stopped alcohol consumption last due to stomach issues. - Quit smoking three years ago. - Active management and monitoring of ch ronic conditions like GERD, anxiety, and sleep apnea. - Respiratory: Reports dry cough, ongoin g post-COVID. - Musculoskeletal: No recent joint or mu scle pain noted. - Gastrointestinal: Describes good bowel movements. - Genitourinary: Reports waking up to ur inate 0 to 1 times per night. - General: Denies fever post-COVID. - Labs: Elevated LDL at 167 mg/dL, eleva steven blood sugar, normal hemoglobin A1c, low folate levels. [facility] Medical History (Updated 01/02/25 @ 09:18 by Roney Merino MD) Annual physical exam LFT elevation Right flank pain COVID-19 virus infection Abdominal pain Hyperkalemia Gastritis Abnormal x-ray of bone UTI (urinary tract infection) C. difficile diarrhea Breast cancer screening by mammogram Diverticulitis Annual physical exam Wheezing Dysphagia Achalasia of esophagus Colon polyp Hiatal hernia PONV (postoperative nausea and vomiting) Colon cancer screening Abdominal bloating Diverticulitis Tobacco abuse Impaired glucose tolerance Bilateral carpal tunnel syndrome Obesity (BMI 30-39.9) Insomnia GERD (gastroesophageal reflux disease) Hypercholesterolemia Surgical History H/O colonoscopy History of esophagogastroduodenoscopy (EGD) History of rotator cuff surgery H/O left knee surgery History of arthroscopy of left knee History of right knee surgery History of D&C History of shoulder surgery History of carpal tunnel release History of fusion of cervical spine Family History Father Myocardial infarction Skin cancer Colon polyps Mother Myocardial infarction Maternal Grandmother Bone cancer Paternal Aunt Skin cancer Lupus Brother Myocardial infarction Substance abuse Sister Myocardial infarction Father Skin cancer Paternal Grandmother Lupus Social History (Updated 01/02/25 @ 09:19 by Roney Merino MD) Household Members: Spouse Housing: House Do you presently have visiting nurse or other home services: No Alcohol intake: current Alcohol intake frequency: does not drink Comment: QD supper time 1-2 glasses, stopped 05/2024 Patient Tobacco Use Status: Former Tobacco user Tobacco use type: Cigarette Cigarettes Per Day: 6 Years Smoked: e-Cigarette/Vaping Use: Never Used Second Hand Smoke Exposure: No Advance Directives Date on File: 01/07/21 service: No Current occupational status: employed Cognitive needs: No Hearing needs: No Vision needs: Yes (Glasses) Questionnaire PHQ-9 Over the last 2 weeks, how often have you been bothered by any of the following problems? 1. Little interest or pleasure in doing things: not at all 2. Feeling down, depressed, or hopeless: not at all 3. Trouble falling or staying asleep, or sleeping too much: not at all 4. Feeling tired or having little energy: not at all 5. Poor appetite or overeating: not at all 6. Feeling bad about yourself - or that you are a failure or have let yourself or your family down: not at all 7. Trouble concentrating on things, such as reading the newspaper or watching television: not at all 8. Moving or speaking so slowly that other people could have noticed. Or the opposite - being so fidgety or restless that you have been moving around a lot more than usual: not at all 9. Thoughts that you would be better off or of hurting yourself in some way: not at all Total score: 0 Depression Screening Interpretation: Positive Depression Screening Follow-up: Existing condition and In treatment Depression Screening Done: Yes Source: Developed by Drs. Sunny Thurston, Marlene Grigsby, Salomon Soares and colleagues, with an educational rajesh from [employer] Thrive Questionnaire Date Thrive assessed: 01/02/25 I am a: Patient What is your living situation today?: I choose not to answer this question Within the past 12 months, did the food you bought not last and you didn't have the money to get more?: I choose not to answer this question Within the past 12 months, did you worry whether your food would run out before you got money to buy more?: I choose not to answer this question Do you have trouble paying for medicines?: I choose not to answer this question Do you have trouble getting transportation to medical appointments?: I choose not to answer this question Do you have trouble paying your heating and electricity bill?: I choose not to answer this question Do you have trouble taking care of your child, family member or friend?: I choose not to answer this question Do you have trouble with day-to-day activities such as bathing, preparing meals, shopping, managing finances, etc.?: I choose not to answer this question Are you currently unemployed and looking for a job?: I choose not to answer this question Are you interested in more education?: I choose not to answer this question Please select the resources that you would like help with: None Currently or been in a relationship where the following occur: I choose not to answer THRIVE Score: 0 AUDIT C Alcohol Use Questionnaire (AUDIT-C) 1. How often do you have a drink containing alcohol?: Never 3. How often do you have six or more drinks on one occasion?: Never Total Score: 0 VALENTIN-7 AMB Questionnaire VALENTIN-7 Date VALENTIN - 7 assessed: 01/02/25 Feeling nervous, anxious, or on edge: 0 = Not at all Not being able to stop or control worryin = Not at all Worrying too much about different things: 0 = Not at all Trouble relaxin = Not at all Being so restless that it is hard to sit still: 0 = Not at all Becoming easily annoyed or irritable: 0 = Not at all Feeling afraid as if something awful might happen: 0 = Not at all Total VALENTIN-7 score (0-4 normal; 5-9 mild; 10-14 moderate; 15-21 severe): 0 Source: Developed by Drs. Sunny Thurston, Marlene Grigsby, Salomon Soares and colleagues, with an educational rajesh from [employer] VALENTIN-7 Assessment Billing VALENTIN-7 Assessment Tool: VALENTIN-7 Assessment 57666 Review of Systems Const Denies poor appetite and Denies weakness Eyes Denies no additional complaints ENT Reports Normal hearing present, Denies dizziness, Denies nasal congestion, Denies tinnitus and Denies sore throat Card Denies chest pain, Denies syncope, Denies rapid heart rate and Denies dyspnea Resp Denies cough and Denies dyspnea GI Denies change in stool character, Reports constipation, Denies diarrhea, Denies nausea and Denies vomiting Denies urinary frequency, Denies difficulty voiding and Denies dysuria Neuro Reports Normal hearing present, Denies confusion, Denies dizziness, Denies syncope and Denies weakness Psych Denies confusion Physical exam (Primary Care) Vital Signs: Oxygen Delivery Method Room Air 01/02/25 09:07 Tobacco/Smoking Status: Tobacco use Status Tobacco use date assessed 10/11/24 10/11/24 14:14 Patient Tobacco Use Status Former Tobacco user 10/11/24 14:14 Tobacco use type Cigarette 10/11/24 14:14 e-Cigarette/Vaping Use Never Used 10/11/24 14:14 Depression Screening Interpretation: Positive Depression Screening Follow-up: Existing condition and In treatment Thrive Assessment: Date of Thrive Assessment Date Thrive assessed 01/02/25 01/02/25 09:04 Currently or been in a relationship where the following occur: I choose not to answer Const General: No confusion Orientation/consciousness: No confusion HENMT Head: Yes normocephalic Ears: external ears normal and TM's normal bilaterally Face and sinus: Yes normal facial exam Mouth: moist mucous membranes Throat: Yes tonsils normal Eyes Conjunctivae: conjunctivae normal Pupils: Equal, round and reactive pupils present and Pupil accommodation reflex normal Direct Ophthalmoscopy: normal light reflex Neck Neck: No lymphadenopathy Thyroid: Thyroid normal Chest Chest palpation & inspection: normal inspection of the chest Resp Effort & Inspection: normal respiratory effort and no audible wheezes Auscultation: clear to auscultation bilaterally, no crackles, no wheezes and lung sounds not diminished Cardio Rate: regular rate Rhythm: regular rhythm Peripheral pulses: radial pulses present and dorsalis pedis present GI Palpation (GI): no masses Auscultation: normal bowel sounds and normoactive bowel sounds Rectal Exam - Female: deferred Skin General skin exam: no rashes or lesions noted Rashes: no rashes Neuro General: No confusion Cranial nerves: Yes Equal, round and reactive pupils present and Yes Normal hearing present Cognition (Neuro): normal cognition Gait exam (Neuro): Normal gait present Motor exam (neuro): 5/5 motor strength present throughout Deep tendon reflexes (DTR's): Right brachioradialis reflex intensity grade: 2+, Left brachioradialis reflex intensity grade: 2+, Right patellar reflex intensity grade: 2+ and Left patellar reflex intensity grade: 2+ Extrem General: No edema Coding Level of Care Code Est Pt Prev Care 40-64y([id number]) Diagnoses Annual physical exam Z00.00 Hypercholesterolemia E78.00 Gastroesophageal reflux disease without esophagitis K21.9 Esophagitis presence: without esophagitis Impaired glucose tolerance R73.02 Generalized anxiety disorder F41.1 Obstructive sleep apnea (adult) (pediatric) G47.33 Hepatic steatosis K76.0 Additional Codes VALENTIN-7 Assessment Billing - VALENTIN-7 Assessment Tool: VALENTIN-7 Assessment [id number] ([id number]) Assessment & Plan Assessment & Plan (1) Annual physical exam: Code(s): Z00.00 - Encounter for general adult medical examination without abnormal findings Category: Medical Plan: Patient is advised to eat healthy, keep well hydrated, keep active and have adequate sleep. (2) Hypercholesterolemia: Code(s): E78.00 - Pure hypercholesterolemia, unspecified Category: Medical Plan: Avoid fried foods, chicken skin, eggs, butter margarine, pastries and meat. Be it pork or beef they have a lot of cholesterol patient is on atorvastatin 20 mg once a day will need a repeat blood test. (3) GERD (gastroesophageal reflux disease): Code(s): K21.9 - Gastro-esophageal reflux disease without esophagitis Category: Medical Qualifiers: Esophagitis presence: without esophagitis Qualified Code(s): K21.9 - Gastro-esophageal reflux disease without esophagitis Plan: Avoid the foods that causes that usually spicy foods, tomato products, juices, coffee, soda and foods that your sensitive to. After eating do not lie down, allow 3-4 hours before in lie down. And keep the head of bed above 30 degrees to avoid the acid from going up. On Carafate and pantoprazole and famotidine (4) Impaired glucose tolerance: Code(s): R73.02 - Impaired glucose tolerance (oral) Category: Medical Plan: Decrease the amount of carbohydrate intake, pasta, bread, rice and potatoes are all sugar and that is aside from all the sweet stuff, remember that fruits are good but they are Sweet also. (5) Generalized anxiety disorder: Comment: Patient has counseling 2 times a week(September 2021) [facility] (05/2022) Code(s): F41.1 - Generalized anxiety disorder Category: Medical Plan: Continue with counseling and therapy. On sertraline 200 mg once a day and lorazepam as needed (6) Obstructive sleep apnea (adult) (pediatric): Comment: October 2022 [facility] BiPAP Code(s): G47.33 - Obstructive sleep apnea (adult) (pediatric) Category: Medical Plan: Continue to use the CPAP more than 4 hours a night and benefits from this. (7) Hepatic steatosis: Comment: June 2024 Code(s): K76.0 - Fatty (change of) liver, not elsewhere classified Category: Medical Plan: Low-fat diet and exercise Plan - Continue atorvastatin 20 mg for hypercholesterolemia, with follow-up blood tests. - Maintain famotidine and pantoprazole regimen for GERD; Carafate use as needed. - Continue sertraline 200 mg daily and lorazepam as needed for anxiety ma nagement. - Encourage CPAP usage >4 hours nightly for obstructive sleep apnea management. - Follow up on elevated blood sugar with regular monitoring and dietary adjustments. - Monitor ongoing cough post-COVID; consider x-ray if persistent beyond a couple of weeks. - Encourage lifestyle modifications such as a low-fat diet and regular exercise. I discussed with the patient the continued management of her chronic conditions, including the need for a follow-up blood test for hypercholesterolemia and monitoring of blood sugar levels due to a previously elevated reading. We reviewed her medication regimen, which includes atorvastatin for cholesterol management, sertraline and lorazepam for anxiety disorder, and the use of CPAP for obstructive sleep apnea. Given her history of recurrent COVID-19, I advised maintaining vigilance with hygiene and flu precautions. We will reassess the reliance on medications like Carafate for GERD as needed. I emphasized the importance of lifestyle modifications such as diet adjustments and regular physical activity to support her overall health. Next steps include obtaining recent test results and adjusting medications as required based on ongoing assessments. - Continue taking atorvastatin 20 mg daily as prescribed. - Take famotidine and pantoprazole regularly for GERD; use Carafate as needed. - Continue sertraline 200 mg daily and lorazepam as needed for anxiety. - Ensure CPAP machine is used for more than 4 hours each night. - Monitor blood sugar levels closely; adjust diet to reduce sugar intake. - Report any persistent cough beyond several weeks for possible x-ray testing. - Maintain a low-fat diet and engage in regular exercise to support wellness. - Schedule and attend follow-up blood tests to monitor cholesterol and blood sugar levels. - Maintain vigilant hygiene practices, especially during flu season.
== END 2025-01-02 09:40 | disposition home or self-care (01) ==
PROVIDERS: PCP Internal Medicine; Visit Provider Internal Medicine
DX: Z00.00 Encounter for general adult medical examination without abnormal findings (principal); E78.00 Pure hypercholesterolemia, unspecified; K21.9 Gastro-esophageal reflux disease without esophagitis; R73.02 Impaired glucose tolerance (oral); F41.1 Generalized anxiety disorder; G47.33 Obstructive sleep apnea (adult) (pediatric); K76.0 Fatty (change of) liver, not elsewhere classified

== ENCOUNTER → 2025-01-02 09:04 | Outpatient (BNVA) | payer OTHER, SELFPAY | PROVIDERS: PCP Internal Medicine; Visit Provider Internal Medicine | DX: Z00.00 Encounter for general adult medical examination without abnormal findings (principal); E78.00 Pure hypercholesterolemia, unspecified; R73.02 Impaired glucose tolerance (oral); F41.1 Generalized anxiety disorder; G47.33 Obstructive sleep apnea (adult) (pediatric); K76.0 Fatty (change of) liver, not elsewhere classified; K21.9 Gastro-esophageal reflux disease without esophagitis | CPT/HCPCS: 96127; 99396 ==

== ENCOUNTER 2025-03-09 09:17 | Outpatient (AMB) | payer OTHER, SELFPAY ==
[2025-03-09 09:25] VITALS: BP 124/57; PULSE 79; BMI 30.4
--- NOTE | 2025-03-09 09:25 | A.OFFVIS_ITS ---
Vital Signs 03/09/25 09:25 Height 5 ft 1 in Weight 160 lb 14.999 oz BMI 30.4 BP 124/57 L Blood Pressure Location Lt brachial Position Sitting Pulse 79 Intake Visit Reasons: 6 mo IBS GERD Intake Note: Florinda presents in the office as a 6 month follow up for GERD and IBS. CC: She states that she is not having any GI concerns at this time. [facility] Director Required: No Allergies amoxicillin [Amoxicillin] Allergy (Intermediate, Verified 03/09/25 09:25) Nausea azithromycin [From Zithromax] Allergy (Intermediate, Verified 03/09/25 09:25) Itching environmental allergies Allergy (Intermediate, Verified 03/09/25 09:25) Nasal congestion, watery eyes erythromycin base [Erythromycin Base] Allergy (Intermediate, Verified 03/09/25 09:25) Nausea metoclopramide Allergy (Intermediate, Verified 03/09/25 09:25) swelling hands/feet Sulfa (Sulfonamide Antibiotics) Allergy (Intermediate, Verified 03/09/25 09:25) Nausea trazodone Allergy (Intermediate, Verified 03/09/25 09:25) vivid dreams codeine Allergy (Verified 03/09/25 09:25) Nausea bupropion [From Wellbutrin] Adverse Reaction (Verified 03/09/25 09:25) Headaches HPI HPI 6 mo IBS GERD: Details: Assessment & Plan (1) Delayed gastric emptying: Comment: She had a bad reaction to Reglan but she also has severe lower esophageal dysmotility that makes her more prone to GERD. a.eb Code(s): K30 - Functional dyspepsia Category: Medical (2) GERD (gastroesophageal reflux disease): Code(s): K21.9 - Gastro-esophageal reflux disease without esophagitis Category: Medical Qualifiers: Esophagitis presence: without esophagitis Qualified Code(s): K21.9 - Gastro-esophageal reflux disease without esophagitis Plan Her right sided pain continues and slowly is worsening and spreading. It is now her whole right side, and radiates up to her shoulder and down her back. It is described as throbbing and constant and not r/t eating or moving her bowels. She still has appetite problems that we have not been able to pin down. The pain under her ribcage does not respond to bentyl, so not likely the bowel. She has had an EGD, colonoscopy, multiple CT's, XR's, even a mesenteric US. Her sx are not c/w gastroparesis, and she could not tolerate reglan in the past anyway, and she has no gallstones. I would consider HIDA if the sx were driven by eating, but since they do not change this likely would not be warranted. She continues on pantoprazole, famotidine and bentyl. She has not been needing the carafate recently. She is concerned regarding her kidneys for the pain, but this is out of my area of expertise. She has labs pending from her PCP but her renal fxn has been normal in the past. I suggest she start with the labs and consider if referral to specilsts is warranted. ROV 6 mos. Medications: Refilled famotidine 40 mg PO BID 180 tabs 1RF sucralfate (Carafate) 20 mL PO QNOON 1,000 mL 2RF R19.7 - Diarrhea, unspecified dicyclomine 20 mg PO QID PRN 120 tabs 1RF for abdominal pain 90 days pantoprazole 40 mg PO DAILY 90 tabs 1RF K21.9 - Gastro-esophageal reflux disease without esophagit CORRESPONDENCE On 06/24/24 @ 09:51 Prasanna Marsh Wrote To I called pharmacy and spoke to Laurita who stated that the brand name liquid is no longer made but the insurance would cover the tablets. If patient can do the tablets a new Rx needs to be sent to the pharmacy. I spoke to patient and explained this to her, and she stated that she still has a lot of bottles of the Sucralfate and does not needs anymore right now. She states that she is concerned about labs values as she noticed some are very high. Also, she mentioned something you spoke to her about the labs that Dr. Merino ordered to check her liver and gallbladder and you mentioning that it was not getting better. Please advise. On 06/23/24 @ 13:38 Prasanna Marsh Wrote To Prasanna Marsh PA denied. Per insurance preferred list Brand name is preferred for sucralfate. I called the pharmacy to inquire if they can do Brand name instead. Pharmacy at lunch until 2PM. Will try again later. TODAYS VISIT She recounts the story of her brother's , which as been really bothering her. She continues on pantoprazole, famotidine and bentyl. She has not used the bentyl as much, but she has alot of right flank pain that originates in the back at about L2 and radiates around. She has spasm and pain at thi level with exam. I suggest she consider PT for her back, and then if it is not resolving consider asking her PCP for an MRI. 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 ROV 6 mos. [facility] Medical History Annual physical exam LFT elevation Right flank pain COVID-19 virus infection Abdominal pain Hyperkalemia Gastritis Abnormal x-ray of bone UTI (urinary tract infection) C. difficile diarrhea Breast cancer screening by mammogram Diverticulitis Annual physical exam Wheezing Dysphagia Achalasia of esophagus Colon polyp Hiatal hernia PONV (postoperative nausea and vomiting) Colon cancer screening Abdominal bloating Diverticulitis Tobacco abuse Impaired glucose tolerance Bilateral carpal tunnel syndrome Obesity (BMI 30-39.9) Insomnia GERD (gastroesophageal reflux disease) Hypercholesterolemia Surgical History H/O colonoscopy History of esophagogastroduodenoscopy (EGD) History of rotator cuff surgery H/O left knee surgery History of arthroscopy of left knee History of right knee surgery History of D&C History of shoulder surgery History of carpal tunnel release History of fusion of cervical spine Family History Father Myocardial infarction Skin cancer Colon polyps Mother Myocardial infarction Maternal Grandmother Bone cancer Paternal Aunt Skin cancer Lupus Brother Myocardial infarction Substance abuse Sister Myocardial infarction Father Skin cancer Paternal Grandmother Lupus Social History Household Members: Spouse Housing: House Do you presently have visiting nurse or other home services: No Alcohol intake: current Alcohol intake frequency: does not drink Comment: QD supper time 1-2 glasses, stopped 05/2024 Patient Tobacco Use Status: Former Tobacco user Tobacco use type: Cigarette Cigarettes Per Day: 6 Years Smoked: e-Cigarette/Vaping Use: Never Used Second Hand Smoke Exposure: No Advance Directives Date on File: 01/07/21 service: No Current occupational status: employed Cognitive needs: No Hearing needs: No Vision needs: Yes (Glasses) Review of Systems Const Denies fatigue, Denies fever(s), Denies night sweats, Denies poor appetite and Denies weight loss Eyes Details: glasses Reports requires corrective lenses ENT Reports Normal hearing present, Denies dental pain, Denies dysphagia, Denies hearing loss, Denies mouth pain, Denies odynophagia, Denies throat swelling, Denies tongue swelling and Reports other (Dentition adequate) Card Reports no additional complaints Resp Reports no additional complaints GI Details: Denies abdominal pain, Denies melena, Denies bloating, Denies hematochezia, Denies constipation, Denies GI cramping, Denies dysphagia, Denies excessive flatus, Denies early satiety, Reports heartburn, Denies diarrhea, Denies nausea, Denies odynophagia, Denies vomiting and Denies hematemesis Reports flank pain Musc Reports back pain Skin/Breast Denies pruritus, Denies lesions, Denies rash and Denies jaundice Neuro Reports Normal hearing present and Denies Abnormal speech present Endo Denies fatigue Aller/Immun Denies throat swelling and Denies tongue swelling Physical Exam Vital Signs: Last Vital Signs Pulse 79 03/09/25 09:25 BP 124/57 L 03/09/25 09:25 BMI result Body Mass Index 30.4 Const General: cooperative, no acute distress, well developed and well groomed Nutritional Appearance: well nourished and obese Orientation/consciousness: oriented to person, oriented to place and oriented to time Limitations: No language barrier HEENT Head: Yes normocephalic and Yes atraumatic Eyes General: appearance normal, both eyes and all related structures Pupils: Equal, round and reactive pupils present Neck Neck: Yes normal visual inspection and Yes no lymphadenopathy Thyroid: Thyroid normal Resp Effort & Inspection: normal respiratory effort and able to speak in complete sentences Auscultation: clear to auscultation bilaterally Cardio Rate: regular rate Rhythm: regular rhythm Heart sounds: Normal, physiologic split S2 sound present Peripheral pulses: radial pulses present and posterior tibial pulses present GI Inspection: No distended, No Abdominal panniculus present and Yes obesity Palpation (GI): Soft to palpation, nontender, no guarding, not rigid and No hepatosplenomegaly present Percussion: Yes normal to percussion Auscultation: normal bowel sounds Rectal Exam - Female: deferred Back/Spine/Pelvis Thoracic/Lumbar Spine: thoracic and lumbar spine normal to inspection, paraspinal muscle tenderness, thoraco-lumbar spasm, thoracic spinal tenderness and lumbar spinal tenderness Skin General skin exam: no rashes or lesions noted, turgor normal, skin not dry, no jaundice, No spider nevi and no striae Rashes: no rashes Nails: normal Neuro General: oriented to person, oriented to place and oriented to time Cranial nerves: Yes Equal, round and reactive pupils present and Yes Normal hearing present Speech: No Abnormal speech present Extrem General: Yes normal to inspection, No clubbing, No cyanosis and No edema Psych Appearance: grossly normal and well kempt Mental Status: mental status grossly normal Speech and movement: Normal speech and movement present Affect: normal affect Attitude: cooperative Thought process: Normal thought process present and not confabulating Thought content: Normal thought content present Insight: Good insight present (Psych) Judgement: Good judgement present (Psych) Assessment & Plan Assessment & Plan (1) Delayed gastric emptying: Comment: She had a bad reaction to Reglan but she also has severe lower esophageal dysmotility that makes her more prone to GERD. a.eb Code(s): K30 - Functional dyspepsia Category: Medical (2) GERD (gastroesophageal reflux disease): Code(s): K21.9 - Gastro-esophageal reflux disease without esophagitis Category: Medical Qualifiers: Esophagitis presence: without esophagitis Qualified Code(s): K21.9 - Gastro-esophageal reflux disease without esophagitis Plan She recounts the story of her brother's , which as been really bothering her. She continues on pantoprazole, famotidine and bentyl. She has not used the bentyl as much, but she has alot of right flank pain that originates in the back at about L2 and radiates around. She has spasm and pain at thi level with exam. I suggest she consider PT for her back, and then if it is not resolving consider asking her PCP for an MRI. 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 ROV 6 mos. Medications: Refilled pantoprazole 40 mg PO DAILY 90 tabs 1RF K21.9 - Gastro-esophageal reflux disease without esophagitis famotidine 40 mg PO BID 180 tabs 1RF Coding Level of Care Code Est Pt Level 3 (85184) Diagnoses Delayed gastric emptying K30 Gastroesophageal reflux disease without esophagitis K21.9 Esophagitis presence: without esophagitis
== END 2025-03-09 10:09 | disposition home or self-care (01) ==
LOC: HO.HGI 09:18
PROVIDERS: PCP Internal Medicine; Visit Provider Nurse Practitioner
DX: K30 Functional dyspepsia (principal); K21.9 Gastro-esophageal reflux disease without esophagitis
CPT/HCPCS: 99213

== ENCOUNTER → 2025-03-09 09:17 | Outpatient (BNVA) | payer OTHER, SELFPAY | PROVIDERS: PCP Internal Medicine; Visit Provider Nurse Practitioner | DX: K30 Functional dyspepsia (principal); K21.9 Gastro-esophageal reflux disease without esophagitis | CPT/HCPCS: 99212 ==

== ENCOUNTER 2025-04-06 08:35 | Outpatient (AMB) | payer OTHER, SELFPAY ==
--- NOTE | 2025-04-06 08:38 | A.OFFPC_ITS ---
Vital Signs 04/06/25 08:39 Height 5 ft 1 in Weight 159 lb BMI 30.0 BP 132/76 Blood Pressure Location Lt brachial Position Sitting Pulse 90 Pulse Source Pulse Oximeter Pulse Oximetry (%) 97 Oxygen Delivery Method Room Air Intake Visit Reasons: 3 months follow up Allergies amoxicillin [Amoxicillin] Allergy (Intermediate, Verified 04/06/25 08:39) Nausea azithromycin [From Zithromax] Allergy (Intermediate, Verified 04/06/25 08:39) Itching environmental allergies Allergy (Intermediate, Verified 04/06/25 08:39) Nasal congestion, watery eyes erythromycin base [Erythromycin Base] Allergy (Intermediate, Verified 04/06/25 08:39) Nausea metoclopramide Allergy (Intermediate, Verified 04/06/25 08:39) swelling hands/feet Sulfa (Sulfonamide Antibiotics) Allergy (Intermediate, Verified 04/06/25 08:39) Nausea trazodone Allergy (Intermediate, Verified 04/06/25 08:39) vivid dreams codeine Allergy (Verified 04/06/25 08:39) Nausea bupropion [From Wellbutrin] Adverse Reaction (Verified 04/06/25 08:39) Headaches Medication List - Last Reconciled 04/06/25 by Roney Merino, atorvastatin 20 mg PO DAILY biotin 1 mg PO DAILY calcium carbonate-vitamin D3 600 mg-10 mcg (400 unit) (Calcium 600 + D(3)) 2 tabs PO DAILY clotrimazole 1% 1 appl topical BID 4 weeks cyclobenzaprine 10 mg PO TID PRN dicyclomine 20 mg PO QID PRN 90 days famotidine 40 mg PO BID folic acid 1 mg PO DAILY lorazepam (Ativan) 0.5 mg PO BEDTIME PRN miconazole nitrate 2% (Zeasorb AF) 1 appl topical DAILY [nasal spray intranasal PRN] omega-3 fatty acids (Fish Oil Concentrate) 1,000 mg PO DAILY pantoprazole 40 mg PO DAILY Saccharomyces boulardii (Probiotic (S.boulardii)) 250 mg PO BID sertraline 200 mg PO QAM zolpidem 5 mg PO BEDTIME Tobacco use date assessed: 01/02/25 Dental Screening Dental Screen Date: 01/02/25 HPI 3 months follow up HPI Details R side cheek pain and swelling- concern on pressure, deny stuffiness PFSH Medical History Annual physical exam LFT elevation Right flank pain COVID-19 virus infection Abdominal pain Hyperkalemia Gastritis Abnormal x-ray of bone UTI (urinary tract infection) C. difficile diarrhea Breast cancer screening by mammogram Diverticulitis Annual physical exam Wheezing Dysphagia Achalasia of esophagus Colon polyp Hiatal hernia PONV (postoperative nausea and vomiting) Colon cancer screening Abdominal bloating Diverticulitis Tobacco abuse Impaired glucose tolerance Bilateral carpal tunnel syndrome Obesity (BMI 30-39.9) Insomnia GERD (gastroesophageal reflux disease) Hypercholesterolemia Surgical History H/O colonoscopy History of esophagogastroduodenoscopy (EGD) History of rotator cuff surgery H/O left knee surgery History of arthroscopy of left knee History of right knee surgery History of D&C History of shoulder surgery History of carpal tunnel release History of fusion of cervical spine Family History Father Myocardial infarction Skin cancer Colon polyps Mother Myocardial infarction Maternal Grandmother Bone cancer Paternal Aunt Skin cancer Lupus Brother Myocardial infarction Substance abuse Sister Myocardial infarction Father Skin cancer Paternal Grandmother Lupus Social History Household Members: Spouse Housing: House Do you presently have visiting nurse or other home services: No Alcohol intake: current Alcohol intake frequency: does not drink Comment: QD supper time 1-2 glasses, stopped 05/2024 Patient Tobacco Use Status: Former Tobacco user Tobacco use type: Cigarette Cigarettes Per Day: 6 Years Smoked: e-Cigarette/Vaping Use: Never Used Second Hand Smoke Exposure: No Advance Directives Date on File: 01/07/21 service: No Current occupational status: employed Cognitive needs: No Hearing needs: No Vision needs: Yes (Glasses) Questionnaire PHQ-9 Over the last 2 weeks, how often have you been bothered by any of the following problems? 1. Little interest or pleasure in doing things: more than half the days 2. Feeling down, depressed, or hopeless: more than half the days 3. Trouble falling or staying asleep, or sleeping too much: more than half the days 4. Feeling tired or having little energy: more than half the days 5. Poor appetite or overeating: more than half the days 6. Feeling bad about yourself - or that you are a failure or have let yourself or your family down: more than half the days 7. Trouble concentrating on things, such as reading the newspaper or watching television: more than half the days 8. Moving or speaking so slowly that other people could have noticed. Or the opposite - being so fidgety or restless that you have been moving around a lot more than usual: more than half the days 9. Thoughts that you would be better off or of hurting yourself in some way: not at all Total score: 16 Depression Screening Interpretation: Positive Depression Screening Done: Yes Source: Developed by Drs. Sunny Thurston, Marlene Grigsby, Salomon Soares and colleagues, with an educational rajesh from [employer]. Thrive Questionnaire Date Thrive assessed: 01/02/25 I am a: Patient What is your living situation today?: I choose not to answer this question Within the past 12 months, did the food you bought not last and you didn't have the money to get more?: I choose not to answer this question Within the past 12 months, did you worry whether your food would run out before you got money to buy more?: I choose not to answer this question Do you have trouble paying for medicines?: I choose not to answer this question Do you have trouble getting transportation to medical appointments?: I choose not to answer this question Do you have trouble paying your heating and electricity bill?: I choose not to answer this question Do you have trouble taking care of your child, family member or friend?: I choose not to answer this question Do you have trouble with day-to-day activities such as bathing, preparing meals, shopping, managing finances, etc.?: I choose not to answer this question Are you currently unemployed and looking for a job?: I choose not to answer this question Are you interested in more education?: I choose not to answer this question Please select the resources that you would like help with: None Currently or been in a relationship where the following occur: I choose not to answer THRIVE Score: 0 AUDIT C Alcohol Use Questionnaire (AUDIT-C) 1. How often do you have a drink containing alcohol?: Never 3. How often do you have six or more drinks on one occasion?: Never Total Score: 0 VALENTIN-7 AMB Questionnaire VALENTIN-7 Date VALENTIN - 7 assessed: 04/06/25 Feeling nervous, anxious, or on edge: 3 = Nearly every day Not being able to stop or control worryin = More than half the days Worrying too much about different things: 2 = More than half the days Trouble relaxin = More than half the days Being so restless that it is hard to sit still: 2 = More than half the days Becoming easily annoyed or irritable: 2 = More than half the days Feeling afraid as if something awful might happen: 2 = More than half the days Total VALENTIN-7 score (0-4 normal; 5-9 mild; 10-14 moderate; 15-21 severe): 15 Source: Developed by Drs. Sunny Thurston, Marlene Grigsby, Salomon Soares and colleagues, with an educational rajesh from [employer]. Physical exam (Primary Care) Vital Signs: Last Vital Signs Pulse 90 04/06/25 08:39 BP 132/76 04/06/25 08:39 Pulse Ox 97 04/06/25 08:39 Oxygen Delivery Method Room Air 04/06/25 08:39 BMI result Body Mass Index 30.0 Tobacco/Smoking Status: Tobacco use Status Tobacco use date assessed 01/02/25 04/06/25 08:43 Patient Tobacco Use Status Former Tobacco user 04/06/25 08:43 Tobacco use type Cigarette 04/06/25 08:43 e-Cigarette/Vaping Use Never Used 04/06/25 08:43 PHQ-9: PHQ-9 Score PHQ-9: Total score 16 04/06/25 09:04 Depression Screening Interpretation: Positive Thrive Assessment: Date of Thrive Assessment Date Thrive assessed 01/02/25 04/06/25 08:43 Currently or been in a relationship where the following occur: I choose not to answer Const General: alert; No acute distress Eyes Conjunctivae: conjunctivae normal Resp Auscultation: clear to auscultation bilaterally Cardio Rate: regular rate Rhythm: regular rhythm GI Inspection: Yes normal to inspection Extrem General: Yes normal to inspection and No edema Coding Level of Care Code Est Pt Level 4 (94406) Complex EM visit Add On G2211 Diagnoses Hypercholesterolemia E78.00 Gastroesophageal reflux disease without esophagitis K21.9 Esophagitis presence: without esophagitis Obesity (BMI 30-39.9) E66.9 Impaired glucose tolerance R73.02 Generalized anxiety disorder F41.1 Obstructive sleep apnea (adult) (pediatric) G47.33 Folic acid deficiency E53.8 Hepatic steatosis K76.0 Lumbar degenerative disc disease M51.36 Sinus congestion R09.81 Insomnia G47.00 Assessment & Plan Assessment & Plan (1) Hypercholesterolemia: Code(s): E78.00 - Pure hypercholesterolemia, unspecified Category: Medical Plan: Avoid fried foods, chicken skin, eggs, butter margarine, pastries and meat. Be it pork or beef they have a lot of cholesterol LDL goal of less than 130 and triglyceride of less than 150 on atorvastatin 20 mg once a day patient needs no blood work (2) GERD (gastroesophageal reflux disease): Code(s): K21.9 - Gastro-esophageal reflux disease without esophagitis Category: Medical Qualifiers: Esophagitis presence: without esophagitis Qualified Code(s): K21.9 - Gastro-esophageal reflux disease without esophagitis Plan: Avoid the foods that causes that usually spicy foods, tomato products, juices, coffee, soda and foods that your sensitive to. After eating do not lie down, allow 3-4 hours before in lie down. And keep the head of bed above 30 degrees to avoid the acid from going up. Patient has been follow-up with Gastroenterology has been placed on famotidine and pantoprazole (3) Obesity (BMI 30-39.9): Code(s): E66.9 - Obesity, unspecified Category: Medical Plan: Diet and exercise (4) Impaired glucose tolerance: Code(s): R73.02 - Impaired glucose tolerance (oral) Category: Medical Plan: Decrease the amount of carbohydrate intake, pasta, bread, rice and potatoes are all sugar and that is aside from all the sweet stuff, remember that fruits are good but they are Sweet also. (5) Generalized anxiety disorder: Comment: Patient has counseling 2 times a week(September 2021) [facility] (05/2022) Code(s): F41.1 - Generalized anxiety disorder Category: Medical Plan: On sertraline right now and lorazepam as needed (6) Obstructive sleep apnea (adult) (pediatric): Comment: October 2022 [facility] BiPAP Code(s): G47.33 - Obstructive sleep apnea (adult) (pediatric) Category: Medical Plan: Continue to use the CPAP more than 4 hours a night and benefits from this. (7) Folic acid deficiency: Code(s): E53.8 - Deficiency of other specified B group vitamins Category: Medical Plan: Continue with the folic acid and will need blood work (8) Hepatic steatosis: Comment: June 2024 Code(s): K76.0 - Fatty (change of) liver, not elsewhere classified Category: Medical Plan: Low-fat diet and exercise (9) Lumbar degenerative disc disease: Code(s): M51.36 - Other intervertebral disc degeneration, lumbar region Category: Medical Plan: Discussion about lumbar degenerative disc disease. Discussed about physical therapy and the use of MRIs. (10) Sinus congestion: Code(s): R09.81 - Nasal congestion Category: Medical (11) Insomnia: Comment: [facility] Code(s): G47.00 - Insomnia, unspecified Category: Medical Plan History of Present Illness The patient is a 59-year-old female presenting for a follow-up of various chronic conditions. She has a history of obesity, hypercholesterolemia, and elevated LDL and triglycerides, now managed with atorvastatin. Previous GERD treatment with Reglan led to adverse reactions, and she is now on pantoprazole and famotidine. The patient experiences generalized anxiety disorder and recurrent major depression, treated with sertraline and lorazepam. She adheres to CPAP use for obstructive sleep apnea. She reports lumbar pain due to degenerative disc disease, most notable when standing or cooking, mitigated partially with muscle relaxants but not involved in physical therapy due to insurance issues. Additionally, she had a previous skin cancer episode treated with cryotherapy and experiences sinus-related facial swelling, despite no congestion symptoms. She remains proactive with tests and necessary follow-ups. Health Maintenance - Blood work: Required for lipid profile, liver function, and folic acid levels. - Colonoscopy: Last conducted October 2021. - Mammogram: Conducted in [place], specifics not discussed. - Lumbar spine imaging: Last conducted December 2023, indicating degenerative changes. - Diagnostic testing: Review sinus with potential x-ray pending. Consider chest x-ray for musculoskeletal pain if needed. - Discussion on low-fat diet and increased exercise for weight management and cholesterol reduction. Social History - Engages in home activities like cooking and baking, which aggravates back pain. - Uses weights for exercise, progressing from 2 lbs to 7 lbs. - Does not smoke; alcohol consumption not discussed. - Utilizes CPAP for sleep apnea management. Review of Systems - Neurological: Denies leg weakness or numbness. - Musculoskeletal: Reports lumbar spine pain, worsens with standing, improved with muscle relaxants. Denies recent trauma. - Respiratory: Utilizes CPAP with benefit. - Gastrointestinal: Reports pain related to GERD, fatty liver noted without pain. - Dermatologic: History of skin cancer, treated with cryotherapy. - Psychiatric: Reports anxiety, managed with sertraline. - ENT: Reports facial swelling near the sinus region, painful to touch, without congestion. - Allergies: Uses [id number] allergy medications when needed. Physical Exam - ENT- Swelling on one side of the face, described as sinus-related pressure. - Musculoskeletal- Pain on lumbar palpation; muscle tension noted. Results - Labs: June 2024 blood count normal, electrolytes normal, kidney function good. Elevated cholesterol and LDL; low folic acid noted. - Imaging: Lumbar spine imaging shows degenerative changes. Plan Continue atorvastatin therapy to manage hypercholesterolemia; maintain diet and exercise regimen to assist with healthy weight and cardiac risk. Manage GERD with current medications, monitor liver function with pending blood work, and assess folic acid levels. Manage lumbar pain through physical therapy once insurance issues are resolved. Review all symptoms?especially facial swelling?and proceed with recommended ENT evaluation if persistent. Implement follow-up x-rays as needed to further evaluate ongoing musculoskeletal concerns. Maintain CPAP usage and psychiatric management. Schedule follow-up in three months for comprehensive review. Patient was informed and verbally consented to the use of an ambient scribe for clinic note documentation during this visit. Discussion Notes During the visit, I discussed with the patient the importance of continuing atorvastatin to achieve cholesterol targets, and informed her of potential risks and benefits. I emphasized the role of diet and exercise as complementary measures. I advised maintenance of GERD management with famotidine and pantoprazole. We discussed the necessity for blood work to check liver function and folic acid levels. Regarding her lumbar spine pain, I recommended physical therapy, though acknowledged possible insurance barriers. We considered ENT evaluation for persistent facial swelling. I reminded her to continue CPAP use for sleep apnea and addressed anxiety management with ongoing medication. Follow-up will be in three months for reassessment of blood work and management efficacy. I encouraged the patient to report any changes or exacerbations promptly. Patient Instructions - Continue atorvastatin 20 mg daily; aim for LDL less than 130 mg/dL. - Follow a low-fat diet and increase physical activity. - Continue taking pantoprazole and famotidine as prescribed for GERD. - Schedule and complete the recommended blood work to check cholesterol, liver, and folic acid levels. - Start physical therapy if covered, and let me know about any barriers. - Watch for changes in facial swelling and schedule with ENT if it continues. - Use CPAP nightly for at least 4 hours. - Keep taking sertraline for anxiety. - Drink plenty of fluids. - Follow up in three months or sooner if needed. Orders: Orders PT Evaluation and Treatment Today M51.36 - Other intervertebral disc degeneration, lumbar region Thyroid Stimulating Hormone Today K76.0 - Fatty (change of) liver, not elsewhere classified C Reactive Protein Today R09.81 - Nasal congestion Complete Blood Count Auto Diff Today K76.0 - Fatty (change of) liver, not elsewhere classified Free T4 (Free Thyroxine) Today K76.0 - Fatty (change of) liver, not elsewhere classified XR sinus min 3V Today R09.81 - Nasal congestion Erythrocyte Sedimentation Rate Today R09.81 - Nasal congestion Vitamin B12 and Folate Today R09.81 - Nasal congestion Medications: New nitrofurantoin monohyd/m-cryst 100 mg (Macrobid) must administer with a meal/food 100 mg PO Q12H 7 days 14 caps 0RF zolpidem 5 mg PO BEDTIME 30 tabs 0RF G47.00 - Insomnia, unspecified
[2025-04-06 08:39] VITALS: BP 132/76; PULSE 90; O2SAT 97
== END 2025-04-06 09:28 | disposition home or self-care (01) ==
LOC: HO.HMCH 08:35
PROVIDERS: PCP Internal Medicine; Visit Provider Internal Medicine
DX: E78.00 Pure hypercholesterolemia, unspecified (principal); K21.9 Gastro-esophageal reflux disease without esophagitis; E66.9 Obesity, unspecified; Z68.30 Body mass index [BMI] 30.0-30.9, adult; R73.02 Impaired glucose tolerance (oral); F41.1 Generalized anxiety disorder; G47.33 Obstructive sleep apnea (adult) (pediatric); E53.8 Deficiency of other specified B group vitamins; K76.0 Fatty (change of) liver, not elsewhere classified; M51.369 Other intervertebral disc degeneration, lumbar region without mention of lumbar back pain or lower extremity pain; R09.81 Nasal congestion; G47.00 Insomnia, unspecified

== ENCOUNTER 2025-04-06 08:35 | Outpatient (REF) | payer OTHER, SELFPAY ==
--- NOTE | ~2025-04-06 | XR_ITS ---
EXAMINATION: XR PARANASAL SINUSES 3 VIEWS HISTORY: R09.81 - Nasal congestion COMPARISON: There are no prior studies for comparison. FINDINGS: Four views of the paranasal sinuses are submitted. The bilateral frontal, maxillary, ethmoid, and sphenoid sinuses are well-aerated and clear. The mastoid air cells are normally pneumatized. XR/XR sinus min 3V IMPRESSION: Unremarkable examination of the paranasal sinuses. Electronically signed by: Sunny Vigil MD 04/06/2025 10:07 AM EDT
[2025-04-06 10:42] LABS: MANUAL DIFF FLAG NO
[2025-04-06 11:18] LABS: Basophils Percent Auto 0.6 % (0-2); Eosinophils Absolute Auto 0.1 X10*3/uL (0.0-0.4); Hematocrit 41.2 % (37.0-47.0); Hemoglobin 14.1 g/dl (12.0-16.0); Imm Gran Abs Auto 0.03 X10*3/uL (0.00-0.03); Imm Gran Pct Auto 0.5 % (0.0-0.4); Lymphocytes Absolute Auto 1.7 X10*3/uL (1.2-4.9); Lymphocytes Percent Auto 25.9 % (20-40); Mean Corpuscular HGB Conc 34.2 g/dl (31.0-35.0); Mean Corpuscular Hemoglobin 29.8 pg (27.0-33.0); Mean Corpuscular Volume 87.1 fL (80.0-98.0); Mean Platelet Volume 10.8 fL (9.4-12.3); Monocytes Absolute Auto 0.5 X10*3/uL (0.1-1.2); Monocytes Percent Auto 8.2 % (2-11); Neutrophils Percent Auto 62.8 % (45-73); Platelet Count 249 X10*3/uL (160-400); Red Blood Count 4.73 X10*6/uL (4.20-5.50); Red Cell Distribution Width 12.2 % (11.0-16.0); White Blood Count 6.4 X10*3/uL (4.8-10.8)
[2025-04-06 11:46] LABS: Estimated Average Glucose 111 mg/dL; Hemoglobin A1c % 5.5 % (<6.0); Total Hemoglobin (HGBA1C) 3554.9177 umol/L
[2025-04-06 12:00] LABS: Erythrocyte Sedimentation Rate 8 MM/HR (0-20)
[2025-04-06 12:14] LABS: Appearance Urine Clear; Color Urine Yellow; Glucose Urine UA Negative (Negative); Leukocyte Esterase Urine Small (1+) (Negative); Nitrite Urine Negative (Negative); UMIC TRIGGER UACC YES; Urine Blood Negative (Negative); Urine Ketones Negative (Negative); Urine Protein Negative (Neg-Trace)
[2025-04-06 12:21] LABS: Bacteria Urine None Seen (None Seen); Hyaline Casts Urine 0-2 /LPF (0-2); RBC Urine 0-2 /HPF (0-2); Squamous Epithelial Cell Urine 0-2 /HPF (0-2); UACC Culture Trigger YES
[2025-04-06 12:22] LABS: Folate > 20.0 ng/mL (> or = 4.0); Vitamin B12 322 pg/mL (200-900)
[2025-04-06 13:01] LABS: Alanine Aminotransferase 31 U/L (0-31); Albumin Level 4.7 g/dL (3.5-5.0); Alkaline Phosphatase 79 U/L (39-117); Anion Gap 13 (12-20); Aspartate Amino Transferase 23 U/L (5-31); Bilirubin Direct 0.1 mg/dL (0.0-0.5); Bilirubin Total 0.3 mg/dL (0.0-1.0); Blood Urea Nitrogen 14 mg/dL (9-16); Calcium 9.6 mg/dL (8.4-10.2); Carbon Dioxide 28 mmol/L (22-29); Chloride 111 mmol/L (96-108); Estimated Glomerular Filt Rate > 60; Free T4 (Free Thyroxine) 0.89 ng/dL (0.71-1.85); Glucose Random 108 mg/dL (60-115); Potassium 4.5 mmol/L (3.3-5.1); Sodium 147 mmol/L (135-145); Thyroid Stimulating Hormone 2.59 uIU/mL (0.32-4.0)
[2025-04-07 03:53] LABS: HBS Num1 0.49 mIU/mL (0-7.99); HBc Num1 0.05 S/CO (0.00-0.79); HBsAGNum1 0.41 S/CO (0.00-0.99); Hepatitis B Core Antibody Nonreactive (Nonreactive); Hepatitis B Surface Antigen Negative (Negative); ~HepC Num1 0.07 S/CO (0.00-0.79); ~Hepatitis B Surface Antibody NONREACTIVE (Nonreactive); ~Hepatitis C Antibody Nonreactive (Nonreactive)
== END 2025-04-06 08:36 | disposition home or self-care (01) ==
LOC: HO.XRAY 08:35
PROVIDERS: PCP Internal Medicine; Visit Provider Internal Medicine
DX: R09.81 Nasal congestion (principal); R79.89 Other specified abnormal findings of blood chemistry; K76.0 Fatty (change of) liver, not elsewhere classified; R73.02 Impaired glucose tolerance (oral); E78.00 Pure hypercholesterolemia, unspecified; K21.9 Gastro-esophageal reflux disease without esophagitis; E66.9 Obesity, unspecified; F41.1 Generalized anxiety disorder; G47.33 Obstructive sleep apnea (adult) (pediatric); E53.8 Deficiency of other specified B group vitamins; G47.00 Insomnia, unspecified; M51.360 Other intervertebral disc degeneration, lumbar region with discogenic back pain only
CPT/HCPCS: 36415; 70220; 80053; 81001; 81003; 82248; 82607; 82746; 83036; 84439; 84443; 85025; 85652; 86140; 86704; 86706; 86803; 87086; 87340; 99212

== ENCOUNTER → 2025-04-06 09:37 | Outpatient (BNV) | payer OTHER, SELFPAY | PROVIDERS: PCP Internal Medicine; Visit Provider Radiology Diagnostic Radiology | DX: R09.81 Nasal congestion (principal) | CPT/HCPCS: 70220 ==

== ENCOUNTER 2025-04-25 13:53 | Outpatient (REF) | payer OTHER, SELFPAY ==
[2025-04-25 16:12] LABS: Appearance Urine Clear; Color Urine Yellow; Glucose Urine UA Negative (Negative); Leukocyte Esterase Urine Negative (Negative); Nitrite Urine Negative (Negative); PH 5.5 (5.0-9.0); Specific Gravity - Urine <= 1.005 (1.005-1.025); Urine Blood Negative (Negative); Urine Ketones Negative (Negative); Urine Protein Negative (Neg-Trace)
== END 2025-04-25 13:54 | disposition home or self-care (01) ==
LOC: HO.HMGCLDS 13:53
PROVIDERS: PCP Internal Medicine; Visit Provider Internal Medicine
DX: R30.0 Dysuria (principal)
CPT/HCPCS: 81003

== ENCOUNTER 2025-04-26 14:03 | Outpatient (AMB) | payer OTHER, SELFPAY ==
--- NOTE | 2025-04-26 14:07 | MHC.PC.OV ---
Vital Signs 04/26/25 14:08 Height 5 ft 1 in Weight 159 lb 8 oz BMI 30.1 BP 112/66 Blood Pressure Location Lt brachial Position Sitting Pulse 83 Pulse Source Pulse Oximeter Temp 97.1 F Temp Source Temporal Artery Scan Pulse Oximetry (%) 98 Oxygen Delivery Method Room Air Intake Visit Reasons: Abdominal pain Intake Note: Patient is here to follow up on Abdominal pain. Workers Compensation Paralegal Required: No Alcohol Still Operator: Not Required per policy Accompanied by: Self / Same As Patient Allergies amoxicillin [Amoxicillin] Allergy (Intermediate, Verified 04/26/25 14:08) Nausea azithromycin [From Zithromax] Allergy (Intermediate, Verified 04/26/25 14:08) Itching environmental allergies Allergy (Intermediate, Verified 04/26/25 14:08) Nasal congestion, watery eyes erythromycin base [Erythromycin Base] Allergy (Intermediate, Verified 04/26/25 14:08) Nausea metoclopramide Allergy (Intermediate, Verified 04/26/25 14:08) swelling hands/feet Sulfa (Sulfonamide Antibiotics) Allergy (Intermediate, Verified 04/26/25 14:08) Nausea trazodone Allergy (Intermediate, Verified 04/26/25 14:08) vivid dreams codeine Allergy (Verified 04/26/25 14:08) Nausea bupropion [From Wellbutrin] Adverse Reaction (Verified 04/26/25 14:08) Headaches Tobacco use date assessed: 04/26/25 Dental Screening Dental Screen Date: 01/02/25 HPI Abdominal pain HPI Details 3 days LLQ pain PFSH Medical History Annual physical exam LFT elevation Right flank pain COVID-19 virus infection Abdominal pain Hyperkalemia Gastritis Abnormal x-ray of bone UTI (urinary tract infection) C. difficile diarrhea Breast cancer screening by mammogram Diverticulitis Annual physical exam Wheezing Dysphagia Achalasia of esophagus Colon polyp Hiatal hernia PONV (postoperative nausea and vomiting) Colon cancer screening Abdominal bloating Diverticulitis Tobacco abuse Impaired glucose tolerance Bilateral carpal tunnel syndrome Obesity (BMI 30-39.9) Insomnia GERD (gastroesophageal reflux disease) Hypercholesterolemia Surgical History H/O colonoscopy History of esophagogastroduodenoscopy (EGD) History of rotator cuff surgery H/O left knee surgery History of arthroscopy of left knee History of right knee surgery History of D&C History of shoulder surgery History of carpal tunnel release History of fusion of cervical spine Family History Father Myocardial infarction Skin cancer Colon polyps Mother Myocardial infarction Maternal Grandmother Bone cancer Paternal Aunt Skin cancer Lupus Brother Myocardial infarction Substance abuse Sister Myocardial infarction Father Skin cancer Paternal Grandmother Lupus Social History Household Members: Spouse Housing: House Do you presently have visiting nurse or other home services: No Alcohol intake: current Alcohol intake frequency: does not drink Comment: QD supper time 1-2 glasses, stopped 05/2024 Patient Tobacco Use Status: Former Tobacco user Tobacco use type: Cigarette Cigarettes Per Day: 6 Years Smoked: Packs per year/per ci.00 e-Cigarette/Vaping Use: Never Used Second Hand Smoke Exposure: Yes Advance Directives Date on File: 01/07/21 service: No Current occupational status: employed Cognitive needs: No Hearing needs: No Vision needs: Yes (Glasses) Questionnaire Thrive Questionnaire Date Thrive assessed: 01/02/25 I am a: Patient What is your living situation today?: I choose not to answer this question Within the past 12 months, did the food you bought not last and you didn't have the money to get more?: I choose not to answer this question Within the past 12 months, did you worry whether your food would run out before you got money to buy more?: I choose not to answer this question Do you have trouble paying for medicines?: I choose not to answer this question Do you have trouble getting transportation to medical appointments?: I choose not to answer this question Do you have trouble paying your heating and electricity bill?: I choose not to answer this question Do you have trouble taking care of your child, family member or friend?: I choose not to answer this question Do you have trouble with day-to-day activities such as bathing, preparing meals, shopping, managing finances, etc.?: I choose not to answer this question Are you currently unemployed and looking for a job?: I choose not to answer this question Are you interested in more education?: I choose not to answer this question Please select the resources that you would like help with: None Currently or been in a relationship where the following occur: I choose not to answer THRIVE Score: 0 VALENTIN-7 AMB Questionnaire VALENTIN-7 Date VALENTIN - 7 assessed: 04/06/25 Source: Developed by Drs. Sunny Thurston, Marlene Grigsby, Salomon Soares and colleagues, with an educational rajesh from [employer]. Physical exam (Primary Care) Vital Signs: Last Vital Signs Temp 97.1 F 04/26/25 14:08 Pulse 83 04/26/25 14:08 BP 112/66 04/26/25 14:08 Pulse Ox 98 04/26/25 14:08 Oxygen Delivery Method Room Air 04/26/25 14:08 BMI result Body Mass Index 30.1 Tobacco/Smoking Status: Tobacco use Status Tobacco use date assessed 04/26/25 04/26/25 14:12 Patient Tobacco Use Status Former Tobacco user 04/26/25 14:12 Tobacco use type Cigarette 04/26/25 14:12 e-Cigarette/Vaping Use Never Used 04/26/25 14:12 Thrive Assessment: Date of Thrive Assessment Date Thrive assessed 01/02/25 04/26/25 14:12 Currently or been in a relationship where the following occur: I choose not to answer Const General: alert; No acute distress Eyes Conjunctivae: conjunctivae normal Resp Auscultation: clear to auscultation bilaterally Cardio Rate: regular rate Rhythm: regular rhythm GI Other: Tender in the left lower quadrant pain with mild guarding but with rebound. Extrem General: Yes normal to inspection and No edema Coding Level of Care Code Est Pt Level 3 (45508) Diagnoses LLQ abdominal pain R10.32 Assessment & Plan Assessment & Plan (1) LLQ abdominal pain: Code(s): R10.32 - Left lower quadrant pain Category: Medical Plan History of Present Illness The patient is a 59-year-old female presenting with acute left-sided abdominal pain suspected to be related to diverticulitis. Her condition commenced on Thursday night during sleep, characterized by soreness underneath the left rib, increasing in severity when shifting positions, particularly in a seated position while driving. This experience mimics a previous episode when she was hospitalized for diverticulitis. Her medical history includes several chronic conditions such as GERD, hypercholesterolemia, generalized anxiety disorder, obstructive sleep apnea, major depressive disorder, and degenerative disc disease. She also reported recent diarrhea and lack of appetite, though denied any difficulties with breathing. Urinary examination, conducted on April 25, revealed no infection, eliminating urinary tract issues as the cause. She reports past occurrences of ovarian cysts and endometriosis but indicates no current issues related to these conditions. The current symptoms are consistent with diverticulitis, as similar pain and the location of tenderness align with her reported history. Health Maintenance Social History - Lives in environment requiring frequent driving and positioning in a vehicle. - No current information on employment or housing mentioned during the encounter. - Reports dietary preferences contributing to follow-up for a suspected episode of diverticulitis. Review of Systems - Gastrointestinal: Reports left-sided abdominal pain and recent diarrhea; denies constipation. - Respiratory: Denies breathing problems. - General: Denies lack of appetite, but states recent nausea when taking certain medications. - Urinary: Denies urinary tract infection. - Female Reproductive: History of ovarian cysts and endometriosis; confirms cessation of menstrual periods. Physical Exam - Gastrointestinal- Tenderness noted on the left side of the abdomen, under the rib area. Results - Labs: Urine test conducted on April 25 was negative for infection. - Tests and Diagnostics: Urine analysis reviewed and no presence of WBCs or nitrites noted. Plan The patient's symptoms indicated a likely episode of diverticulitis for which she was prescribed Ciprofloxacin and Metronidazole, ensuring adherence to proper dietary guidelines. A CT scan was ordered to better assess her current condition. Despite her penicillin allergy, these antibiotics were selected as alternatives. Increasing hydration was advised to help reduce constipation and facilitate bowel movements. Further discussions included understanding the importance of dietary modifications and the necessity of a future follow-up once diagnostic testing is completed to re-evaluate her medication needs and check progress in symptom management. Patient was informed and verbally consented to the use of an ambient scribe for clinic note documentation during this visit. Discussion Notes During the visit, I discussed with the patient the suspicion of diverticulitis as the underlying cause of her abdominal pain, given her history and current presentation. I explained the rationale for choosing Ciprofloxacin and Metronidazole due to her penicillin allergy and the importance of taking Metronidazole with food. We reviewed the benefits of these medications, possible side effects, and the necessity of completing the antibiotic course. The option of performing a CT scan was explained to ensure the accuracy of the diverticulitis diagnosis given her symptom history and pain severity. The patient was informed about the importance of dietary changes and increasing water intake, as well as monitoring for potential complications. Follow-up will be scheduled after completing the CT scan, and I reminded her of the reasons to seek emergent medical attention, such as worsening pain or new symptoms. Patient Instructions - Take prescribed antibiotics (Ciprofloxacin and Metronidazole) as directed. - Ensure Metronidazole is taken with food to reduce stomach discomfort. - Stay hydrated; increase water intake throughout the day. - Monitor symptoms closely; seek medical attention if pain worsens or new symptoms develop. - Adhere to recommended dietary modifications, avoiding foods that may irritate your stomach. - Return for follow-up after CT scan completion to reassess condition and treatment needs. - Call the office if any side effects from medication occur or if there are questions regarding the treatment plan. Orders: Orders Blood Urea Nitrogen Today R10.32 - Left lower quadrant pain CT abdomen pelvis w IV con Today R10.32 - Left lower quadrant pain Creatinine Today R10.32 - Left lower quadrant pain Medications: New ciprofloxacin HCl 500 mg PO BID 14 tabs 0RF R10.32 - Left lower quadrant pain metronidazole 500 mg PO BID 14 tabs 0RF 7 days R10.32 - Left lower quadrant pain
[2025-04-26 14:08] VITALS: BP 112/66; PULSE 83; TEMP 36.2; O2SAT 98; BMI 30.1
== END 2025-04-26 14:42 | disposition home or self-care (01) ==
LOC: HO.HMCH 14:03
PROVIDERS: PCP Internal Medicine; Visit Provider Internal Medicine
DX: R10.32 Left lower quadrant pain (principal)

== ENCOUNTER → 2025-04-26 14:03 | Outpatient (BNVA) | payer OTHER, SELFPAY | PROVIDERS: PCP Internal Medicine; Visit Provider Internal Medicine | DX: R10.32 Left lower quadrant pain (principal); R19.7 Diarrhea, unspecified | CPT/HCPCS: 99212 ==

== ENCOUNTER 2025-05-06 07:45 | Outpatient (REF) | payer OTHER, SELFPAY ==
[2025-05-06 09:13] LABS: Blood Urea Nitrogen 10 mg/dL (9-16); Estimated Glomerular Filt Rate > 60
== END 2025-05-06 07:46 | disposition home or self-care (01) ==
LOC: HO.LAB 07:45
PROVIDERS: PCP Internal Medicine; Visit Provider Internal Medicine
DX: R10.32 Left lower quadrant pain (principal)
CPT/HCPCS: 36415; 82565; 84520

== ENCOUNTER 2025-05-30 08:23 | Outpatient (REF) | payer OTHER, SELFPAY ==
--- NOTE | ~2025-05-30 | CT_ITS ---
EXAMINATION: CT ABDOMEN AND PELVIS WITH CONTRAST CLINICAL INFORMATION: Left lower quadrant abdominal pain. COMPARISON: April 20, 2023. TECHNIQUE: Multidetector volumetric images were obtained from the superior aspect of the liver through the pubic symphysis following administration 85 mL of Omnipaque 350 intravenous contrast. Sagittal and coronal reformatted images were obtained on the technologist's workstation. Oral contrast: Yes This CT examination was performed using dose optimization techniques as appropriate, variously including the following: *Automated exposure control *Adjustment of mA and/or kV according to patient size (this includes techniques or standardized protocols for targeted exams where dose is matched to indication/reason for exam; i.e. extremities or head) *Use of iterative reconstruction technique. DLP: 520 mGy centimeter. FINDINGS: LUNG BASES: No acute airspace disease. LIVER, GALLBLADDER, AND BILIARY TREE: Liver measures 15 cm. Decreased enhancement. No focal mass. Portal veins, hepatic veins and intrahepatic portion of the IVC are patent. No pericholecystic fluid collection or gallbladder wall thickening. No intrahepatic or extrahepatic biliary ductal dilatation. PANCREAS: No focal mass. No peripancreatic fluid collection. No main pancreatic ductal dilatation. SPLEEN: 8 cm. No focal mass. ADRENAL GLANDS: No nodular lesion. KIDNEYS AND URETERS: No hydronephrosis. No gross renal mass. Normal enhancement pattern of the renal cortex. No gross nephrolithiasis. BLADDER: Fluid-filled. GASTROINTESTINAL TRACT: Appendix is normal. Terminal ileum is normal. Few scattered diverticula, sigmoid colon. No intestinal obstruction pattern. No intestinal wall thickening. No pneumatosis intestinalis. No ascites. No pneumoperitoneum. No fluid collections, peritoneal cavity. Segmental areas of the collapsed small bowel loops likely peristalsis. ABDOMINAL WALL: Small fat-containing umbilical hernia. LYMPH NODES: Nonspecific mildly prominent, retroperitoneum and mesenteric. VASCULAR: Irregular mixed plaques throughout the abdominal aorta wall and iliac arteries without aneurysm or dissection. Calcified plaques in the coronary arteries.. PELVIC VISCERA: No gross masses. OSSEOUS STRUCTURES: Multilevel thoracolumbar spondylosis pronounced at L5-S1, L2-3 and to a lesser extent L4-[address]/CT abdomen pelvis w IV con IMPRESSION: Diverticular disease versus diverticulosis, sigmoid colon. Coronary artery disease and atherosclerosis disease. Small fat-containing umbilical hernia. Fleischner guidelines were followed. Electronically signed by: Dayo Cruz MD 05/30/2025 09:13 AM EDT
[2025-05-30] MEDS: iohexoL 350 MG/ML 100 ML INFUS..BTL IV (09:03)
== END 2025-05-30 08:24 | disposition home or self-care (01) ==
LOC: HO.CT 08:23
PROVIDERS: PCP Internal Medicine; Visit Provider Internal Medicine
DX: R10.32 Left lower quadrant pain (principal)
CPT/HCPCS: 74177; Q9967

== ENCOUNTER → 2025-05-30 08:25 | Outpatient (BNV) | payer OTHER, SELFPAY | PROVIDERS: PCP Internal Medicine; Visit Provider Radiology Diagnostic Radiology | DX: K42.9 Umbilical hernia without obstruction or gangrene (principal); I25.10 Atherosclerotic heart disease of native coronary artery without angina pectoris | CPT/HCPCS: 74177 ==

== ENCOUNTER 2025-07-20 07:58 | Outpatient (REF) | payer OTHER, SELFPAY ==
[2025-07-20 10:35] LABS: Cholesterol 252 mg/dL (<200); HDL Cholesterol 73 mg/dL (>40); Triglycerides 120 mg/dL (<150)
== END 2025-07-20 07:59 | disposition home or self-care (01) ==
LOC: HO.HMGCLDS 07:58
PROVIDERS: PCP Internal Medicine; Visit Provider Internal Medicine
DX: E78.00 Pure hypercholesterolemia, unspecified (principal)
CPT/HCPCS: 36415; 80061

== ENCOUNTER 2025-07-24 15:32 | Outpatient (AMB) | payer OTHER, SELFPAY ==
[2025-07-24 15:35] VITALS: BP 112/68; PULSE 86; O2SAT 98; BMI 30.4
--- NOTE | 2025-07-24 15:35 | A.OFFPC_ITS ---
Vital Signs 07/24/25 15:35 Height 5 ft 1 in Weight 161 lb BMI 30.4 BP 112/68 Blood Pressure Location Lt brachial Position Sitting Pulse 86 Pulse Source Pulse Oximeter Pulse Oximetry (%) 98 Oxygen Delivery Method Room Air Intake Visit Reasons: RUQ pain, r facial pain Allergies amoxicillin (Amoxicillin) Allergy (Intermediate, Verified 07/24/25 15:35) Nausea azithromycin (From Zithromax) Allergy (Intermediate, Verified 07/24/25 15:35) Itching environmental allergies Allergy (Intermediate, Verified 07/24/25 15:35) Nasal congestion, watery eyes erythromycin base (Erythromycin Base) Allergy (Intermediate, Verified 07/24/25 15:35) Nausea metoclopramide Allergy (Intermediate, Verified 07/24/25 15:35) swelling hands/feet Sulfa (Sulfonamide Antibiotics) Allergy (Intermediate, Verified 07/24/25 15:35) Nausea trazodone Allergy (Intermediate, Verified 07/24/25 15:35) vivid dreams codeine Allergy (Verified 07/24/25 15:35) Nausea bupropion (From Wellbutrin) Adverse Reaction (Verified 07/24/25 15:35) Headaches Tobacco use date assessed: 04/26/25 Dental Screening Dental Screen Date: 01/02/25 [facility] Medical History Annual physical exam LFT elevation Right flank pain COVID-19 virus infection Abdominal pain Hyperkalemia Gastritis Abnormal x-ray of bone UTI (urinary tract infection) C. difficile diarrhea Breast cancer screening by mammogram Diverticulitis Annual physical exam Wheezing Dysphagia Achalasia of esophagus Colon polyp Hiatal hernia PONV (postoperative nausea and vomiting) Colon cancer screening Abdominal bloating Diverticulitis Tobacco abuse Impaired glucose tolerance Bilateral carpal tunnel syndrome Obesity (BMI 30-39.9) Insomnia GERD (gastroesophageal reflux disease) Hypercholesterolemia Surgical History H/O colonoscopy History of esophagogastroduodenoscopy (EGD) History of rotator cuff surgery H/O left knee surgery History of arthroscopy of left knee History of right knee surgery History of D&C History of shoulder surgery History of carpal tunnel release History of fusion of cervical spine Family History Father Myocardial infarction Skin cancer Colon polyps Mother Myocardial infarction Maternal Grandmother Bone cancer Paternal Aunt Skin cancer Lupus Brother Myocardial infarction Substance abuse Sister Myocardial infarction Father Skin cancer Paternal Grandmother Lupus Social History Household Members: Spouse Housing: House Do you presently have visiting nurse or other home services: No Alcohol intake: current Alcohol intake frequency: does not drink Comment: QD supper time 1-2 glasses, stopped 05/2024 Patient Tobacco Use Status: Former Tobacco user Tobacco use type: Cigarette Cigarettes Per Day: 6 Years Smoked: e-Cigarette/Vaping Use: Never Used Second Hand Smoke Exposure: Yes Advance Directives Date on File: 01/07/21 service: No Current occupational status: employed Cognitive needs: No Hearing needs: No Vision needs: Yes (Glasses) Questionnaire Thrive Questionnaire Date Thrive assessed: 01/02/25 VALENTIN-7 AMB Questionnaire VALENTIN-7 Date VALENTIN - 7 assessed: 04/06/25 Source: Developed by Drs. Sunny Thurston, Marlene Grigsby, Salomon Soares and colleagues, with an educational rajesh from [employer]. Physical exam (Primary Care) Vital Signs: Last Vital Signs Pulse 86 07/24/25 15:35 BP 112/68 07/24/25 15:35 Pulse Ox 98 07/24/25 15:35 Oxygen Delivery Method Room Air 07/24/25 15:35 BMI result Body Mass Index 30.4 Tobacco/Smoking Status: Tobacco use Status Tobacco use date assessed 04/26/25 07/24/25 15:37 Patient Tobacco Use Status Former Tobacco user 07/24/25 15:37 Tobacco use type Cigarette 07/24/25 15:37 e-Cigarette/Vaping Use Never Used 07/24/25 15:37 Thrive Assessment: Date of Thrive Assessment Date Thrive assessed 01/02/25 07/24/25 15:37 Const General: alert; No acute distress Eyes Conjunctivae: conjunctivae normal Resp Auscultation: clear to auscultation bilaterally Cardio Rate: regular rate Rhythm: regular rhythm GI Inspection: Yes normal to inspection Extrem General: Yes normal to inspection and No edema Coding Level of Care Code Est Pt Level 4 (08896) Complex EM visit Add On G2211 Diagnoses Hypercholesterolemia E78.00 Impaired glucose tolerance R73.02 Obesity (BMI 30-39.9) E66.9 Gastroesophageal reflux disease without esophagitis K21.9 Esophagitis presence: without esophagitis Hepatic steatosis K76.0 Obstructive sleep apnea (adult) (pediatric) G47.33 Diverticular disease K57.90 Coronary artery disease I25.10 Generalized anxiety disorder F41.1 Assessment & Plan Assessment & Plan (1) Hypercholesterolemia: Code(s): E78.00 - Pure hypercholesterolemia, unspecified Category: Medical Plan: Avoid fried foods, chicken skin, eggs, butter margarine, pastries and meat. Be it pork or beef they have a lot of cholesterol LDL goal of less than 70 and triglyceride of less than 150 (2) Impaired glucose tolerance: Code(s): R73.02 - Impaired glucose tolerance (oral) Category: Medical Plan: Decrease the amount of carbohydrate intake, pasta, bread, rice and potatoes are all sugar and that is aside from all the sweet stuff, remember that fruits are good but they are Sweet also. (3) Obesity (BMI 30-39.9): Code(s): E66.9 - Obesity, unspecified Category: Medical Plan: Diet and exercise (4) GERD (gastroesophageal reflux disease): Code(s): K21.9 - Gastro-esophageal reflux disease without esophagitis Category: Medical Qualifiers: Esophagitis presence: without esophagitis Qualified Code(s): K21.9 - Gastro-esophageal reflux disease without esophagitis Plan: Avoid the foods that causes that usually spicy foods, tomato products, juices, coffee, soda and foods that your sensitive to. After eating do not lie down, allow 3-4 hours before in lie down. And keep the head of bed above 30 degrees to avoid the acid from going up. (5) Hepatic steatosis: Comment: June 2024 Code(s): K76.0 - Fatty (change of) liver, not elsewhere classified Category: Medical Plan: Low-fat diet and exercise (6) Obstructive sleep apnea (adult) (pediatric): Comment: October 2022 [facility] BiPAP Code(s): G47.33 - Obstructive sleep apnea (adult) (pediatric) Category: Medical Plan: Continue to use the CPAP more than 4 hours a night and benefits from (7) Diverticular disease: Code(s): K57.90 - Diverticulosis of intestine, part unspecified, without perforation or abscess without bleeding Category: Medical Plan: Keep well hydrated, avoid constipation (8) Coronary artery disease: Code(s): I25.10 - Atherosclerotic heart disease of [place] coronary artery without angina pectoris Category: Medical Plan: Control the cholesterol, weight, blood pressure, discussed about cholesterol. Patient is advised to start on aspirin (9) Generalized anxiety disorder: Comment: Patient has counseling 2 times a week(September 2021) [facility] (05/2022) Code(s): F41.1 - Generalized anxiety disorder Category: Medical Plan: Continue with counseling and therapy Plan History of Present Illness The patient is a 59-year-old female presenting for a follow-up visit. The patient has a history of obesity, hypercholesterolemia, gastroesophageal reflux disease, generalized anxiety disorder, obstructive sleep apnea, major depressive disorder, hepatic steatosis, diverticular disease, coronary artery disease, atherosclerosis, umbilical hernia, and thoracolumbar spondylosis. She was last seen in April 2025 and has a scheduled appointment with gastroenterology in August [address]25. A CT scan performed in May 2025 due to left lower quadrant pain revealed diverticular disease. The patient reports experiencing palpitations but denies any chest pain. Her blood work in March 2022 showed normal blood count, renal function, and blood sugar levels, with normal liver function tests. Her cholesterol levels in July showed an LDL of 155 mg/dL, which is a slight improvement from a previous level of 167 mg/dL. Health Maintenance - Scheduled gastroenterology appointment in August 2025 - Cholesterol management with a goal of LDL less than 70 mg/dL and triglycerides less than 150 mg/dL - Diet and exercise recommendations for weight management and reflux control - Use of CPAP for obstructive sleep apnea - Aspirin therapy for coronary artery disease Social History - Family status: , with supportive - Exercise: Limited due to health conditions - Stress: High stress levels due to family and neighborhood issues Review of Systems - Cardiovascular: Reports palpitations. Denies chest pain. - Gastrointestinal: Reports history of diverticular disease. - Neurological: Reports headaches and difficulty sleeping. Physical Exam Results - Labs: Normal blood count, renal function, and blood sugar levels in March 2022. Normal liver function tests. - Imaging: CT scan in May 2025 showed diverticular disease. - Labs: LDL cholesterol level of 155 mg/dL in July 2025. Plan Patient was informed and verbally consented to the use of an ambient scribe for clinic note documentation during this visit. 1. Hypercholesterolemia The patient's LDL cholesterol level is currently 155 mg/dL, which is above the target goal of less than 70 mg/dL due to her coronary artery disease. The plan includes increasing the dose of atorvastatin from 20 mg to 40 mg and starting aspirin therapy at 81 mg daily to manage her coronary artery disease risk. 2. Obstructive Sleep Apnea The patient is advised to continue using CPAP for more than 4 hours per night to manage her obstructive sleep apnea. 3. Gastroesophageal Reflux Disease (Gerd) Dietary modifications, including a low-fat diet and regular exercise, are recommended to manage her gastroesophageal reflux disease. 4. Coronary Artery Disease The patient is advised to start aspirin therapy at 81 mg daily to reduce the risk of heart attacks associated with coronary artery disease. Discussion Notes During the visit, I discussed with the patient the importance of managing her cholesterol levels to reduce the risk of coronary artery disease. We agreed to increase her atorvastatin dosage and start aspirin therapy. I emphasized the need for dietary modifications and regular exercise to manage her gastroesophageal reflux disease and obesity. We also discussed the importance of using CPAP for her obstructive sleep apnea. I advised her to follow up with gastroenterology as scheduled and to monitor her symptoms closely. Patient Instructions - Increase atorvastatin dose to 40 mg daily. - Start taking aspirin 81 mg daily. - Follow a low-fat diet and engage in regular exercise. - Use CPAP for more than 4 hours each night. - Attend scheduled gastroenterology appointment in August 2025. Orders: Orders Lipid Panel 3 Months E78.00 - Pure hypercholesterolemia, unspecified, I25.10 - Atherosclerotic heart disease of [place] coronary artery without angina pectoris Hemoglobin A1c 3 Months I25.10 - Atherosclerotic heart disease of [place] coronary artery without angina pectoris Comprehensive Met. Panel 3 Months I25.10 - Atherosclerotic heart disease of [place] coronary artery without angina pectoris Medications: New aspirin 81 mg PO DAILY 30 tabs 12RF Changed From atorvastatin 20 mg PO DAILY 90 tabs 1RF E78.00 - Pure hypercholesterolemia, unspecified To atorvastatin 40 mg PO DAILY 30 tabs 2RF E78.00 - Pure hypercholesterolemia, unspecified
== END 2025-07-24 16:42 | disposition home or self-care (01) ==
LOC: HO.HMCH 15:32
PROVIDERS: PCP Internal Medicine; Visit Provider Internal Medicine
DX: E78.00 Pure hypercholesterolemia, unspecified (principal); R73.02 Impaired glucose tolerance (oral); E66.9 Obesity, unspecified; Z68.30 Body mass index [BMI] 30.0-30.9, adult; K21.9 Gastro-esophageal reflux disease without esophagitis; K76.0 Fatty (change of) liver, not elsewhere classified; G47.33 Obstructive sleep apnea (adult) (pediatric); K57.90 Diverticulosis of intestine, part unspecified, without perforation or abscess without bleeding; I25.10 Atherosclerotic heart disease of native coronary artery without angina pectoris; F41.1 Generalized anxiety disorder

== ENCOUNTER → 2025-07-24 15:32 | Outpatient (BNVA) | payer OTHER, SELFPAY | PROVIDERS: PCP Internal Medicine; Visit Provider Internal Medicine | DX: R73.02 Impaired glucose tolerance (oral) (principal); E78.00 Pure hypercholesterolemia, unspecified; E66.9 Obesity, unspecified; K21.9 Gastro-esophageal reflux disease without esophagitis; K76.0 Fatty (change of) liver, not elsewhere classified; G47.33 Obstructive sleep apnea (adult) (pediatric); K57.90 Diverticulosis of intestine, part unspecified, without perforation or abscess without bleeding; I25.10 Atherosclerotic heart disease of native coronary artery without angina pectoris; F41.1 Generalized anxiety disorder; Z99.89 Dependence on other enabling machines and devices; Z68.30 Body mass index [BMI] 30.0-30.9, adult | CPT/HCPCS: 99212 ==

== ENCOUNTER 2025-09-05 09:12 | Outpatient (AMB) | payer OTHER, SELFPAY ==
--- NOTE | 2025-09-05 09:21 | A.OFFVIS_ITS ---
Vital Signs 09/05/25 09:27 Height 5 ft 1 in Weight 164 lb 14.492 oz BMI 31.2 BP 123/76 Blood Pressure Location Rt brachial Position Sitting Pulse 84 Intake Visit Reasons: 6 mo f/u Intake Note: Florinda presents in the office as a 6 month follow up for GERD and IBS. CC: She states that she is not having any GI concerns at this time. 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 Accompanied by: Self / Same As Patient Allergies amoxicillin (Amoxicillin) Allergy (Intermediate, Verified 09/05/25 09:36) Nausea azithromycin (From Zithromax) Allergy (Intermediate, Verified 09/05/25 09:36) Itching environmental allergies Allergy (Intermediate, Verified 09/05/25 09:36) Nasal congestion, watery eyes erythromycin base (Erythromycin Base) Allergy (Intermediate, Verified 09/05/25 09:36) Nausea metoclopramide Allergy (Intermediate, Verified 09/05/25 09:36) swelling hands/feet Sulfa (Sulfonamide Antibiotics) Allergy (Intermediate, Verified 09/05/25 09:36) Nausea trazodone Allergy (Intermediate, Verified 09/05/25 09:36) vivid dreams codeine Allergy (Verified 09/05/25 09:36) Nausea bupropion (From Wellbutrin) Adverse Reaction (Verified 09/05/25 09:36) Headaches Medication List - Last Reconciled 09/05/25 by ROSANNE Del Toro aspirin 81 mg PO DAILY atorvastatin 40 mg PO DAILY barium sulfate 2%(w/v) (Readi-Cat 2) ; As directed prior to CAT scan; biotin 1 mg PO DAILY buspirone 5 mg PO TID calcium carbonate-vitamin D3 600 mg-10 mcg (400 unit) (Calcium 600 + D(3)) 2 tabs PO DAILY clotrimazole 1% 1 appl topical BID 4 weeks cyclobenzaprine 10 mg PO TID PRN dicyclomine 20 mg PO QID PRN 90 days famotidine 40 mg PO BID folic acid 1 mg PO DAILY lorazepam (Ativan) 0.5 mg PO BEDTIME PRN miconazole nitrate 2% (Zeasorb AF) 1 appl topical DAILY [nasal spray intranasal PRN] omega-3 fatty acids (Fish Oil Concentrate) 1,000 mg PO DAILY pantoprazole 40 mg PO DAILY Saccharomyces boulardii (Probiotic (S.boulardii)) 250 mg PO BID sertraline 200 mg PO QAM zolpidem 5 mg PO BEDTIME HPI HPI 6 mo f/u: Details: Assessment & Plan (1) Delayed gastric emptying: Comment: She had a bad reaction to Reglan but she also has severe lower esophageal dysmotility that makes her more prone to GERD. a.eb Code(s): K30 - Functional dyspepsia Category: Medical (2) GERD (gastroesophageal reflux disease): Code(s): K21.9 - Gastro-esophageal reflux disease without esophagitis Category: Medical Qualifiers: Esophagitis presence: without esophagitis Qualified Code(s): K21.9 - Gastro-esophageal reflux disease without esophagitis Plan She recounts the story of her brother's , which as been really bothering her. She continues on pantoprazole, famotidine and bentyl. She has not used the bentyl as much, but she has alot of right flank pain that originates in the back at about L2 and radiates around. She has spasm and pain at thi level with exam. I suggest she consider PT for her back, and then if it is not resolving consider asking her PCP for an MRI. 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 ROV 6 mos. Medications: Refilled pantoprazole 40 mg PO DAILY 90 tabs 1RF K21.9 - Gastro-esophageal reflux disease without esophagitis famotidine 40 mg PO BID 180 tabs 1RF TODAY'S VISIT She continues to do well. Upset over check in process. SPoke with Emiliano. [facility] Medical History (Updated 09/05/25 @ 15:15 by ROSANNE Del Toro) Diverticular disease Diarrhea LLQ abdominal pain Annual physical exam LFT elevation Right flank pain COVID-19 virus infection Abdominal pain Hyperkalemia Gastritis Abnormal x-ray of bone UTI (urinary tract infection) C. difficile diarrhea Breast cancer screening by mammogram Diverticulitis Annual physical exam Wheezing Dysphagia Achalasia of esophagus Colon polyp Hiatal hernia PONV (postoperative nausea and vomiting) Colon cancer screening Abdominal bloating Diverticulitis Tobacco abuse Impaired glucose tolerance Bilateral carpal tunnel syndrome Obesity (BMI 30-39.9) Insomnia GERD (gastroesophageal reflux disease) Hypercholesterolemia Surgical History H/O colonoscopy History of esophagogastroduodenoscopy (EGD) History of rotator cuff surgery H/O left knee surgery History of arthroscopy of left knee History of right knee surgery History of D&C History of shoulder surgery History of carpal tunnel release History of fusion of cervical spine Family History Father Myocardial infarction Skin cancer Colon polyps Mother Myocardial infarction Maternal Grandmother Bone cancer Paternal Aunt Skin cancer Lupus Brother Myocardial infarction Substance abuse Sister Myocardial infarction Father Skin cancer Paternal Grandmother Lupus Social History Household Members: Spouse Housing: House Do you presently have visiting nurse or other home services: No Alcohol intake: current Alcohol intake frequency: does not drink Comment: QD supper time 1-2 glasses, stopped 05/2024 Patient Tobacco Use Status: Former Tobacco user Tobacco use type: Cigarette Cigarettes Per Day: 6 Years Smoked: e-Cigarette/Vaping Use: Never Used Second Hand Smoke Exposure: Yes Advance Directives Date on File: 01/07/21 service: No Current occupational status: employed Cognitive needs: No Hearing needs: No Vision needs: Yes (Glasses) Review of Systems Const Denies fatigue, Denies fever(s), Denies night sweats, Denies poor appetite and Denies weight loss Eyes Details: glasses Reports requires corrective lenses ENT Reports Normal hearing present, Denies dental pain, Denies dysphagia, Denies hearing loss, Denies mouth pain, Denies odynophagia, Denies throat swelling, Denies tongue swelling and Reports other (Dentition adequate) Card Reports no additional complaints Resp Reports no additional complaints GI Details: Reports abdominal pain, Denies melena, Denies bloating, Denies hematochezia, D enies constipation, Denies GI cramping, Denies dysphagia, Denies excessive flatus, Denies early satiety, Reports heartburn, Denies diarrhea, Denies nausea, Denies odynophagia, Denies vomiting and Denies hematemesis Reports flank pain Musc Details: rib pain Reports back pain Skin/Breast Denies pruritus, Denies lesions, Denies rash and Denies jaundice Neuro Reports Normal hearing present and Denies Abnormal speech present Endo Denies fatigue Aller/Immun Denies throat swelling and Denies tongue swelling Physical Exam Vital Signs: Last Vital Signs Pulse 84 09/05/25 09:27 BP 123/76 09/05/25 09:27 BMI result Body Mass Index 31.2 Const General: cooperative, no acute distress, well developed and well groomed Nutritional Appearance: well nourished and obese Orientation/consciousness: oriented to person, oriented to place and oriented to time Limitations: No language barrier HEENT Head: Yes normocephalic and Yes atraumatic Eyes General: appearance normal, both eyes and all related structures Pupils: Equal, round and reactive pupils present Neck Neck: Yes normal visual inspection and Yes no lymphadenopathy Thyroid: Thyroid normal Resp Effort & Inspection: normal respiratory effort and able to speak in complete sentences Auscultation: clear to auscultation bilaterally Cardio Rate: regular rate Rhythm: regular rhythm Heart sounds: Normal, physiologic split S2 sound present Peripheral pulses: radial pulses present and posterior tibial pulses present GI Inspection: No distended, Yes Abdominal panniculus present and Yes obesity Palpation (GI): Soft to palpation, Tenderness to palpation present (GI) (mild) in the RUQ, no guarding, not rigid and No hepatosplenomegaly present Percussion: Yes normal to percussion Auscultation: normal bowel sounds Rectal Exam - Female: deferred Skin General skin exam: no rashes or lesions noted, turgor normal, skin not dry, no jaundice, No spider nevi and no striae Rashes: no rashes Nails: normal Neuro General: oriented to person, oriented to place and oriented to time Cranial nerves: Yes Equal, round and reactive pupils present and Yes Normal hearing present Speech: No Abnormal speech present Extrem General: Yes normal to inspection, No clubbing, No cyanosis and No edema Psych Appearance: grossly normal and well kempt Mental Status: mental status grossly normal Speech and movement: Normal speech and movement present Affect: normal affect and Irritable affect present Attitude: cooperative Thought process: Normal thought process present and not confabulating Thought content: Normal thought content present Insight: Good insight present (Psych) Judgement: Good judgement present (Psych) Results Reviewed Results Reviewed: CT ABD AND PELVIS 05/30/25 FINDINGS: LUNG BASES: No acute airspace disease. LIVER, GALLBLADDER, AND BILIARY TREE: Liver measures 15 cm. Decreased enhancement. No focal mass. Portal veins, hepatic veins and intrahepatic portion of the IVC are patent. No pericholecystic fluid collection or gallbladder wall thickening. No intrahepatic or extrahepatic biliary ductal dilatation. PANCREAS: No focal mass. No peripancreatic fluid collection. No main pancreatic ductal dilatation. SPLEEN: 8 cm. No focal mass. ADRENAL GLANDS: No nodular lesion. KIDNEYS AND URETERS: No hydronephrosis. No gross renal mass. Normal enhancement pattern of the renal cortex. No gross nephrolithiasis. BLADDER: Fluid-filled. GASTROINTESTINAL TRACT: Appendix is normal. Terminal ileum is normal. Few scattered diverticula, sigmoid colon. No intestinal obstruction pattern. No intestinal wall thickening. No pneumatosis intestinalis. No ascites. No pneumoperitoneum. No fluid collections, peritoneal cavity. Segmental areas of the collapsed small bowel loops likely peristalsis. ABDOMINAL WALL: Small fat-containing umbilical hernia. LYMPH NODES: Nonspecific mildly prominent, retroperitoneum and mesenteric. VASCULAR: Irregular mixed plaques throughout the abdominal aorta wall and iliac arteries without aneurysm or dissection. Calcified plaques in the coronary arteries.. PELVIC VISCERA: No gross masses. OSSEOUS STRUCTURES: Multilevel thoracolumbar spondylosis pronounced at L5-S1, L2-3 and to a lesser extent L4-[address]/CT abdomen pelvis w IV con IMPRESSION: Diverticular disease versus diverticulosis, sigmoid colon. Coronary artery disease and atherosclerosis disease. Small fat-containing umbilical hernia. Assessment & Plan Assessment & Plan (1) GERD (gastroesophageal reflux disease): Code(s): K21.9 - Gastro-esophageal reflux disease without esophagitis Category: Medical Qualifiers: Esophagitis presence: without esophagitis Qualified Code(s): K21.9 - Gastro-esophageal reflux disease without esophagitis (2) Delayed gastric emptying: Comment: She had a bad reaction to Reglan but she also has severe lower esophageal dysmotility that makes her more prone to GERD. a.eb Code(s): K30 - Functional dyspepsia Category: Medical (3) Dysphagia: Comment: Prior barium swallow showed dysmotility in the lower 3rd of the esophagus but re peat swallowing 2021 did not show any problem with motility. Code(s): R13.10 - Dysphagia, unspecified Category: Medical Plan She continues to do well. Upset over check in process. SPoke with Emiliano. She continues on her pantoprazole, famotidine, and occasional dicyclomine. Return office visit in 6 months Medications: Refilled famotidine 40 mg PO BID 180 tabs 1RF pantoprazole 40 mg PO DAILY 90 tabs 1RF K21.9 - Gastro-esophageal reflux disease without esophagitis Coding Level of Care Code Est Pt Level 3 (33070) Diagnoses Gastroesophageal reflux disease without esophagitis K21.9 Esophagitis presence: without esophagitis Delayed gastric emptying K30 Dysphagia R13.10
[2025-09-05 09:27] VITALS: BP 123/76; PULSE 84; BMI 31.2
== END 2025-09-05 10:22 | disposition home or self-care (01) ==
LOC: HO.HGI 09:12
PROVIDERS: PCP Internal Medicine; Visit Provider Nurse Practitioner
DX: K21.9 Gastro-esophageal reflux disease without esophagitis (principal); K30 Functional dyspepsia; R13.10 Dysphagia, unspecified
CPT/HCPCS: 99213

== ENCOUNTER → 2025-09-05 09:12 | Outpatient (BNVA) | payer OTHER, SELFPAY | PROVIDERS: PCP Internal Medicine; Visit Provider Nurse Practitioner | DX: K21.9 Gastro-esophageal reflux disease without esophagitis (principal); K30 Functional dyspepsia; R13.10 Dysphagia, unspecified | CPT/HCPCS: 99212 ==

== ENCOUNTER 2025-11-08 10:17 | Outpatient (AMB) | payer OTHER, SELFPAY ==
[2025-11-08 10:27] VITALS: BP 122/74; PULSE 77; RESP 18; O2SAT 96; BMI 31.0
--- NOTE | 2025-11-08 10:27 | MHC.PC.OV ---
Vital Signs 11/08/25 10:27 Height 5 ft 1 in Weight 164 lb BMI 31.0 BP 122/74 Blood Pressure Location Lt brachial Position Sitting Respiration 18 Pulse 77 Pulse Source Pulse Oximeter Temp Source Temporal Artery Scan Pulse Oximetry (%) 96 Oxygen Delivery Method Room Air Intake Visit Reasons: hypercholesterol. 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 Accompanied by: Self / Same As Patient Allergies amoxicillin (Amoxicillin) Allergy (Intermediate, Verified 11/08/25 10:27) Nausea azithromycin (From Zithromax) Allergy (Intermediate, Verified 11/08/25 10:27) Itching environmental allergies Allergy (Intermediate, Verified 11/08/25 10:27) Nasal congestion, watery eyes erythromycin base (Erythromycin Base) Allergy (Intermediate, Verified 11/08/25 10:27) Nausea metoclopramide Allergy (Intermediate, Verified 11/08/25 10:27) swelling hands/feet Sulfa (Sulfonamide Antibiotics) Allergy (Intermediate, Verified 11/08/25 10:27) Nausea trazodone Allergy (Intermediate, Verified 11/08/25 10:27) vivid dreams codeine Allergy (Verified 11/08/25 10:27) Nausea bupropion (From Wellbutrin) Adverse Reaction (Verified 11/08/25 10:27) Headaches Medication List - Last Reconciled 11/08/25 by Roney Merino MD aspirin 81 mg PO DAILY atorvastatin 40 mg PO DAILY barium sulfate 2%(w/v) (Readi-Cat 2) ; As directed prior to CAT scan; biotin 1 mg PO DAILY buspirone 5 mg PO TID calcium carbonate-vitamin D3 600 mg-10 mcg (400 unit) (Calcium 600 + D(3)) 2 tabs PO DAILY clotrimazole 1% 1 appl topical BID 4 weeks cyclobenzaprine 10 mg PO TID PRN dicyclomine 20 mg PO QID PRN 90 days famotidine 40 mg PO BID folic acid 1 mg PO DAILY lorazepam (Ativan) 0.5 mg PO BEDTIME PRN magnesium glycinate 240 mg PO DAILY miconazole nitrate 2% (Zeasorb AF) 1 appl topical DAILY [nasal spray intranasal PRN] omega-3 fatty acids (Fish Oil Concentrate) 1,000 mg PO DAILY pantoprazole 40 mg PO DAILY Saccharomyces boulardii (Probiotic (S.boulardii)) 250 mg PO BID sertraline 200 mg PO QAM zolpidem 5 mg PO BEDTIME Tobacco use date assessed: 11/08/25 Dental Screening Dental Screen Date: 11/08/25 Did you have a dental visit in the last 12 months?: No Did you have a dental problem in the last 6 months where you did not have access to dental care?: No Was dental information given to patient?: No HPI HPI Comments History of Present Illness Details History of Present Illness The patient is a 60-year-old obese female presenting for a follow-up visit. Her history includes hypercholesterolemia, impaired glucose tolerance, generalized anxiety disorder, GERD, obstructive sleep apnea, depression, lumbar degenerative disc disease, hepatic steatosis, and coronary artery disease. She was last seen in July 2025. For health maintenance, her last colonoscopy was in 2020, her mammogram is at baseline, and a bone density scan from October 2023 was normal. The patient follows up with gastroenterology for GERD and IBS, and is on pantoprazole, famotidine, and dicyclomine. Recent lab work from April 06, 2025, showed a normal blood count with no anemia. A cholesterol panel from July showed an LDL of 155 mg/dL. Her renal and thyroid functions are normal. Health Maintenance - Last colonoscopy was in 2020. - Mammogram is at baseline. - Bone density scan from October 2023 was normal. - Diet and exercise were recommended for pre-diabetes management. - Low-fat diet and exercise were recommended. Social History - Diet: The patient reports eating her vegetables. - Exercise: Encouraged to exercise. Results - Labs - Complete blood count (April 06, 2025): Normal, with no anemia. - Lipid panel (July): LDL was 155 mg/dL. - Renal function: Normal. - Thyroid function: Normal. - Tests and Diagnostics - Colonoscopy (2020): Completed. - Mammogram: Completed at baseline. - Bone density scan (October 2023): Normal. [facility] Medical History Diverticular disease Diarrhea LLQ abdominal pain Annual physical exam LFT elevation Right flank pain COVID-19 virus infection Abdominal pain Hyperkalemia Gastritis Abnormal x-ray of bone UTI (urinary tract infection) C. difficile diarrhea Breast cancer screening by mammogram Diverticulitis Annual physical exam Wheezing Dysphagia Achalasia of esophagus Colon polyp Hiatal hernia PONV (postoperative nausea and vomiting) Colon cancer screening Abdominal bloating Diverticulitis Tobacco abuse Impaired glucose tolerance Bilateral carpal tunnel syndrome Obesity (BMI 30-39.9) Insomnia GERD (gastroesophageal reflux disease) Hypercholesterolemia Surgical History H/O colonoscopy History of esophagogastroduodenoscopy (EGD) History of rotator cuff surgery H/O left knee surgery History of arthroscopy of left knee History of right knee surgery History of D&C History of shoulder surgery History of carpal tunnel release History of fusion of cervical spine Family History Father Myocardial infarction Skin cancer Colon polyps Mother Myocardial infarction Maternal Grandmother Bone cancer Paternal Aunt Skin cancer Lupus Brother Myocardial infarction Substance abuse Sister Myocardial infarction Father Skin cancer Paternal Grandmother Lupus Social History Household Members: Spouse Housing: House Do you presently have visiting nurse or other home services: No Alcohol intake: current Alcohol intake frequency: does not drink Comment: QD supper time 1-2 glasses, stopped 05/2024 Patient Tobacco Use Status: Former Tobacco user Tobacco use type: Cigarette Cigarettes Per Day: 6 Years Smoked: e-Cigarette/Vaping Use: Never Used Second Hand Smoke Exposure: Yes Advance Directives Date on File: 01/07/21 service: No Current occupational status: employed Cognitive needs: No Hearing needs: No Vision needs: Yes (Glasses) Questionnaire Thrive Questionnaire Date Thrive assessed: 11/08/25 I am a: Patient What is your living situation today?: I choose not to answer this question Within the past 12 months, did the food you bought not last and you didn't have the money to get more?: I choose not to answer this question Within the past 12 months, did you worry whether your food would run out before you got money to buy more?: I choose not to answer this question Do you have trouble paying for medicines?: I choose not to answer this question Do you have trouble getting transportation to medical appointments?: I choose not to answer this question Do you have trouble paying your heating and electricity bill?: I choose not to answer this question Do you have trouble taking care of your child, family member or friend?: I choose not to answer this question Do you have trouble with day-to-day activities such as bathing, preparing meals, shopping, managing finances, etc.?: I choose not to answer this question Are you currently unemployed and looking for a job?: I choose not to answer this question Are you interested in more education?: I choose not to answer this question Currently or been in a relationship where the following occur: I choose not to answer THRIVE Score: 0 VALENTIN-7 AMB Questionnaire VALENTIN-7 Date VALENTIN - 7 assessed: 04/06/25 Source: Developed by Drs. Sunny Thurston, Marlene Grigsby, Salomon Soares and colleagues, with an educational rajesh from [employer]. Review of Systems Narrative Review of Systems Physical exam (Primary Care) Vital Signs: Last Vital Signs Pulse 77 11/08/25 10:27 Resp 18 11/08/25 10:27 BP 122/74 11/08/25 10:27 Pulse Ox 96 11/08/25 10:27 Oxygen Delivery Method Room Air 11/08/25 10:27 BMI result Body Mass Index 31.0 Tobacco/Smoking Status: Tobacco use Status Tobacco use date assessed 11/08/25 11/08/25 10:28 Patient Tobacco Use Status Former Tobacco user 11/08/25 10:28 Tobacco use type Cigarette 11/08/25 10:28 e-Cigarette/Vaping Use Never Used 11/08/25 10:28 Thrive Assessment: Date of Thrive Assessment Date Thrive assessed 11/08/25 11/08/25 10:28 Currently or been in a relationship where the following occur: I choose not to answer Narrative Physical Exam Const General: alert; No acute distress Eyes Conjunctivae: conjunctivae normal Resp Auscultation: clear to auscultation bilaterally Cardio Rate: regular rate Rhythm: regular rhythm GI Inspection: Yes normal to inspection Extrem General: Yes normal to inspection and No edema Coding Level of Care Code Est Pt Level 4 (33517) Add On Problem Visit Only Diagnoses Coronary artery disease I25.10 Hypercholesterolemia E78.00 Impaired glucose tolerance R73.02 Obesity (BMI 30-39.9) E66.9 Generalized anxiety disorder F41.1 Gastroesophageal reflux disease without esophagitis K21.9 Esophagitis presence: without esophagitis Hepatic steatosis K76.0 Obstructive sleep apnea (adult) (pediatric) G47.33 Assessment & Plan Assessment & Plan (1) Coronary artery disease: Code(s): I25.10 - Atherosclerotic heart disease of [place] coronary artery without angina pectoris Category: Medical Plan: Control the cholesterol, weight, blood pressure, LDL goal of less than 70 and triglyceride of less than 150 patient on aspirin (2) Hypercholesterolemia: Code(s): E78.00 - Pure hypercholesterolemia, unspecified Category: Medical Plan: Avoid fried foods, chicken skin, eggs, butter margarine, pastries and meat. Be it pork or beef they have a lot of cholesterol LDL goal of less than 70 and triglyceride of less than 150 on atorvastatin 40 mg once a day (3) Impaired glucose tolerance: Code(s): R73.02 - Impaired glucose tolerance (oral) Category: Medical Plan: Decrease the amount of carbohydrate intake, pasta, bread, rice and potatoes are all sugar and that is aside from all the sweet stuff, remember that fruits are good but they are Sweet also. (4) Obesity (BMI 30-39.9): Code(s): E66.9 - Obesity, unspecified Category: Medical Plan: Diet and exercise (5) Generalized anxiety disorder: Comment: Patient has counseling 2 times a week(September 2021) [facility] (05/2022) Code(s): F41.1 - Generalized anxiety disorder Category: Medical Plan: <del>Continue</del> <del>with</del> <del>counseling</del> <del>and</del> <del>therapy</del> <del>on</del> <del>sertraline</del> <del>buspirone</del> <del>and</del> <del>lorazepam</del> (6) GERD (gastroesophageal reflux disease): Code(s): K21.9 - Gastro-esophageal reflux disease without esophagitis Category: Medical Qualifiers: Esophagitis presence: without esophagitis Qualified Code(s): K21.9 - Gastro-esophageal reflux disease without esophagitis Plan: Avoid the foods that causes that usually spicy foods, tomato products, juices, coffee, soda and foods that your sensitive to. After eating do not lie down, allow 3-4 hours before in lie down. And keep the head of bed above 30 degrees to avoid the acid from going up. Patient follows up with Gastroenterology on pantoprazole and famotidine (7) Hepatic steatosis: Comment: June 2024 Code(s): K76.0 - Fatty (change of) liver, not elsewhere classified Category: Medical Plan: Low-fat diet and exercise (8) Obstructive sleep apnea (adult) (pediatric): Comment: October 2022 [facility] BiPAP Code(s): G47.33 - Obstructive sleep apnea (adult) (pediatric) Category: Medical Plan: Continue to use the CPAP more than 4 hours a night and benefits from this. Plan Plan Patient was informed and verbally consented to the use of an ambient scribe for clinic note documentation during this visit. 1. Coronary Artery Disease And Hypercholesterolemia The treatment goal is an LDL level of less than 70 mg/dL and a triglyceride level of less than 150 mg/dL. The patient will continue taking aspirin and atorvastatin 40 mg daily. A low-fat diet and exercise were also recommended. 2. Impaired Glucose Tolerance The plan includes management with diet and exercise. 3. Anxiety And Depression The patient will continue with counseling and therapy. She will also continue her current medication regimen of sertraline, buspirone, and lorazepam. 4. Gastroesophageal Reflux Disease (Gerd) The patient will continue to follow up with gastroenterology. She will continue her medications, pantoprazole and famotidine. 5. Obstructive Sleep Apnea The patient is encouraged to continue using her CPAP for more than 4 hours a night, as she benefits from this. Discussion Notes I reviewed the patient's coronary artery disease and hypercholesterolemia management, emphasizing the goal of an LDL less than 70 mg/dL and triglycerides less than 150 mg/dL. We discussed continuing her atorvastatin 40 mg and aspirin. I recommended lifestyle modifications including a low-fat diet and exercise to manage her pre-diabetes and cholesterol. For her anxiety and depression, I advised her to continue with counseling and her current medications, including sertraline, buspirone, and lorazepam. 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 Regarding her obstructive sleep apnea, I stressed the importance of using her CPAP for more than 4 hours nightly to ensure she receives the benefit. Patient Instructions - Continue taking atorvastatin 40 mg once a day for your cholesterol. - Continue taking your daily aspirin. - Follow a low-fat diet and get regular exercise. - Continue taking buspirone, lorazepam, and sertraline as prescribed for your anxiety and depression. - Continue with your counseling and therapy sessions. - Continue taking your medications for reflux (pantoprazole and famotidine) and follow up with your stomach doctor as planned. - Use your CPAP machine for at least 4 hours every night. Orders: Orders Magnesium Today F41.1 - Generalized anxiety disorder Medications: Refilled aspirin 81 mg PO DAILY 90 tabs 3RF
== END 2025-11-08 11:30 | disposition home or self-care (01) ==
LOC: HO.HMCH 10:18
PROVIDERS: PCP Internal Medicine; Visit Provider Internal Medicine
DX: I25.10 Atherosclerotic heart disease of native coronary artery without angina pectoris (principal); E78.00 Pure hypercholesterolemia, unspecified; R73.02 Impaired glucose tolerance (oral); E66.9 Obesity, unspecified; F41.1 Generalized anxiety disorder; K21.9 Gastro-esophageal reflux disease without esophagitis; K76.0 Fatty (change of) liver, not elsewhere classified; G47.33 Obstructive sleep apnea (adult) (pediatric)

== ENCOUNTER → 2025-11-08 10:17 | Outpatient (BNVA) | payer OTHER, SELFPAY | PROVIDERS: PCP Internal Medicine; Visit Provider Internal Medicine | DX: I25.10 Atherosclerotic heart disease of native coronary artery without angina pectoris (principal); E78.00 Pure hypercholesterolemia, unspecified; R73.02 Impaired glucose tolerance (oral); E66.9 Obesity, unspecified; F41.1 Generalized anxiety disorder; K21.9 Gastro-esophageal reflux disease without esophagitis; K76.0 Fatty (change of) liver, not elsewhere classified; G47.33 Obstructive sleep apnea (adult) (pediatric); Z68.31 Body mass index [BMI] 31.0-31.9, adult | CPT/HCPCS: 99212 ==